=== PATIENT | female | born 1950 | race Caucasian/White ===

== ENCOUNTER → 2016-07-14 | Outpatient (CLI) | payer MEDICARE ==
[2016-07-14 11:42] LABS: Blood Urea Nitrogen 11 mg/dL (7-17); Non-African American GFR(MDRD) >60 (>60 ml/min/1.73 sqM)
--- NOTE | 2016-07-14 12:43 | CT ---
EXAMINATION TYPE: CT chest w con DATE OF EXAM: 07/14/2016 12:18 PM COMPARISON: PET/CT 03/11/[address] chest dated 11/24/2015 HISTORY: f/u lung mass CT DLP: 415.7 mGycm Automated exposure control for dose reduction was used. CONTRAST: CT scan of the chest is performed with IV Contrast, patient injected with 100 mL of Omnipaque 300. FINDINGS: LUNGS: There is an enlarging mass noted right upper lobe directly adjacent to the mediastinum current ly measures 4 x 2.1 cm versus 4.4 x 2.5 cm on prior PET/CT.New nodule is seen just caudal to the enla rging aforementioned mass which measures 2.0 x 1.3 cm. There is a new lung nodule at the right lung b ase which measures 2.5 cm in greatest dimension. Linear parenchymal scar superior segment right lower lobe. Left infrahilar nodule adjacent to the descending thoracic aorta is again noted and currently measures 1.8 x 1 cm versus 1.3 x 1.0 cm on prior PET/CT. No additional pulmonary masses or nodules id entified with certainty at this time. MEDIASTINUM: High right paratracheal lymph node is unchanged at 1.2 cm. Subcentimeter precarinal lymp h nodes noted as well as subcentimeter subcarinal lymph nodes. Right hilar adenopathy measuring up to 1.1 cm. Multiple subcentimeter left hilar lymph nodes detected. UPPER ABDOMEN: Hepatic steatosis. Cholecystectomy clips. Small hiatal hernia. OTHER: Remote right-sided rib fractures noted. IMPRESSION: 1. Dominant mass right upper lobe medially appears slightly smaller in size relative to prior PET/CT. There is however a new right basilar pulmonary nodule as well as a new nodule abutting the mediastin um right upper lobe. Left infrahilar nodule is slightly larger in size. 2. Adenopathy remains essentially unchanged.
== END | disposition home or self-care (01) ==
LOC: RADCTMAIN 11:00
PROVIDERS: ATTEND Internal Medicine Critical Care Medicine
DX: R91.8 Other nonspecific abnormal finding of lung field (principal); R59.9 Enlarged lymph nodes, unspecified
CPT/HCPCS: 82565; 84520; 71260; 36415; Q9967

== ENCOUNTER → 2016-08-05 | Outpatient (CLI) | payer MEDICARE ==
--- NOTE | 2016-08-06 11:11 | PE ---
EXAMINATION TYPE: PET CT fusion whole body DATE OF EXAM: 08/05/2016 11:38 AM CLINICAL HISTORY: 66-year-old female history of lung cancer, restaging. TECHNIQUE: Following the intravenous administration of 14.1 mCi of F-18 FDG, whole body images are performed from the skull base to the midthigh. Images are reviewed on the computer in the coronal, a xial, and sagittal planes. Reconstructed rotating images are created on independent workstation and reviewed on the computer. A localization and attenuation correction CT is performed in conjunction with the PET scan. Glucose level: 96 mg/dL COMPARISON: PET/CT 03/11/2016 FINDINGS: PET: Some mild uptake at the larynx likely a product of phonation. Variable mild to moderate activity redemonstrated at the shoulders likely on a degenerative basis. There are postsurgical changes within suture line along the medial right upper lobe. There is associa bowen medial right upper lobe mass measuring 6.6 cm AP by 2.5 cm wide versus 4.4 cm x 2.8 cm, previousl y. There is less cranial extension which seems to be due to the patient's interval biopsy. Maximal CANDELARIO V 13.5 vs 14.8, previously. Right basilar pulmonary nodule measures 1.9 cm and shows moderate FDG uptake, maximal SUV 4.7. A left basilar pulmonary nodule measures 1.2 cm and while slightly smaller in size from 03/11/2016, sh ows intense FDG uptake, maximum SUV 5.6 versus 7.2, previously. A new medial left lower lobe pulmonary nodule measures 1.2 cm and has borderline moderate FDG uptake, maximum SUV 3.9. A mildly enlarged 1.1 cm right paratracheal lymph node shows only mild FDG uptake and is stable from prior. Scattered mild bilateral hilar activity likely reactive/post inflammatory. Otherwise, no enla rged mediastinal lymphadenopathy seen. Focal soft tissue thickening along the intercostal musculature of the right anterolateral eighth inte rcostal space, axial image 113 shows intense FDG uptake, maximum SUV 5.8, and is suspicious. The previously seen FDG uptake relating to the right anterolateral rib fracture deformities has resol aj. A couple foci of intense tracer activity along the anterior peritoneum shows no CT correlate and like ly represents urine contamination. Otherwise, physiologic FDG uptake within the abdomen and pelvis. ATTENUATION CORRECTION CT: Visualized paranasal sinuses and mastoid air cells are clear. No cervical lymphadenopathy. Heart is upper limits of normal in size without pericardial effusion. Aorta is normal caliber with co nventional arch vessel branching anatomy. Some patchy bibasilar areas of atelectasis. There is mild centrilobular emphysema. No pleural effusion. Hepatic steatosis. Cholecystectomy clips. No mesenteric or retroperitoneal lymphadenopathy and no p elvic lymphadenopathy seen. No dilated small bowel, free fluid, or free air. Uterus surgically absent. No pelvic free fluid. Bones: Degenerative changes at the hips and lower lumbar spine. No osseous destructive process. IMPRESSION: 1. Status post surgical biopsy of the medial right upper lobe mass. This now measures up to 6.6 cm wi th continued very intense hypermetabolism compatible with neoplasm. 2. The left basilar pulmonary nodule remains suspicious despite slight decrease in size and metabolic activity now measuring 1.2 cm and maximal SUV of 5.6 versus 7.2, previously. 3. A 1.2 cm medial left lower lobe pulmonary nodule and a 1.9 cm right basilar pulmonary nodule are b oth new and show moderate hypermetabolism. Both are suspicious for metastatic disease. 4. Findings suspicious for a new soft tissue metastasis to the anterolateral right eighth intercostal space. 5. Mild emphysema and hepatic steatosis.
== END | disposition home or self-care (01) ==
LOC: RADPETMAIN 09:14
PROVIDERS: ATTEND Internal Medicine Hematology & Oncology
DX: R91.8 Other nonspecific abnormal finding of lung field (principal); J43.9 Emphysema, unspecified; K76.0 Fatty (change of) liver, not elsewhere classified
CPT/HCPCS: 78816; A9552

== ENCOUNTER → 2016-10-06 | Outpatient (CLI) | payer MEDICARE ==
[2016-10-06 14:53] LABS: Blood Urea Nitrogen 13 mg/dL (7-17); Non-African American GFR(MDRD) >60 (>60 ml/min/1.73 sqM)
--- NOTE | 2016-10-06 15:50 | CT ---
EXAMINATION TYPE: CT chest w con DATE OF EXAM: 10/06/2016 3:27 PM COMPARISON: 07/14/2016 and 03/01/2016. HISTORY: 66-year-old female with lung mass, follow-up. TECHNIQUE: Contiguous axial scanning of the chest after the administration of 100 mL of Omnipaque 300 . Coronal/sagittal reconstructions performed. CT DLP: 548.10mGycm. Automatic exposure control utilized for a dose reduction. FINDINGS: The heart is upper limits of normal in size without pericardial effusion. Aorta is normal caliber with conventional arch vessel branching anatomy. A 1 cm superior right paratracheal lymph node is slightly smaller versus 1.2 cm on 07/14/2016. An 8 to 9 mm left hilar lymph node is unchanged. Otherwise, no thoracic lymphadenopathy. There are postsurgical changes redemonstrated of wedge resection along the medial right upper lobe. Adjacent anterior right perihilar soft tissue thickening measures 1.0 x 2.6 cm versus 1.2 x 2.7 cm on 07/14/2016. This is noted to be new from 03/01/2016. Medial right upper lobe soft tissue thickening just above abutting the mediastinum measures 3.3 x 1.7 cm versus 3.8 x 2.2 cm previously. Redemonstrated right basilar pulmonary nodule measuring 2.0 cm. This is in comparison to 2.4 cm on 07/14/2016. A 1.6 cm left basal pulmonary nodule is relatively unchanged as compared to 07/14/2016. No consolidation or pleural effusion. Suggestion of strandy scarring or atelectasis at the lung bases . Small hiatal hernia. Diffuse fatty infiltration of the liver. The adrenal glands are clear. Gallblad rohith surgically absent. Bones: No osseous destructive process. IMPRESSION: 1. Postsurgical changes along the medial right upper lobe. Soft tissue thickening in this region is s lightly decreased measuring 3.3 x 1.7 cm versus 3.8 x 2.2 cm previously. 2. The focal subpleural soft tissue along the anterior right perihilar region is also minimally decre ased measuring 1.0 x 2.6 cm versus 1.2 x 2.7 cm. 3. Right basilar pulmonary nodule also decreased now at 2.0 cm versus 2.4 cm, previously. A 1.6 cm le ft basilar pulmonary nodule is relatively similar. 4. A superior right paratracheal lymph node now measures 1 cm versus 1.2 cm, previously. 5. Hepatic steatosis and small hiatal hernia.
== END | disposition home or self-care (01) ==
LOC: RADCTMAIN 14:05
PROVIDERS: ATTEND Internal Medicine Critical Care Medicine
DX: R91.1 Solitary pulmonary nodule (principal); K44.9 Diaphragmatic hernia without obstruction or gangrene; M79.89 Other specified soft tissue disorders; Z98.890 Other specified postprocedural states
CPT/HCPCS: 82565; 84520; 71260; 36415; Q9967

== ENCOUNTER → 2017-01-05 | Outpatient (CLI) | payer MEDICARE ==
[2017-01-05 11:23] LABS: Non-African American GFR(MDRD) >60 (>60 ml/min/1.73 sqM)
[2017-01-05 11:32] LABS: Blood Urea Nitrogen 15 mg/dL (7-17)
--- NOTE | 2017-01-05 12:19 | CT ---
EXAMINATION TYPE: CT chest w con DATE OF EXAM: 01/05/2017 COMPARISON: Previous study dated 10/06/2016 HISTORY: Lung Mass CT DLP: 609.7 mGycm Automated exposure control for dose reduction was used. CONTRAST: CT scan of the chest is performed with IV Contrast, patient injected with 100 mL of Omnipaque 300. FINDINGS: Masslike density in the right upper lobe adjacent to the medial suprahilar region has decre ased in size from 3.3 x 1.7 cm to 3.2 x 1.3 cm. Focal soft tissue density along anterior right perihilar region which previously measured 10.2 x 25.8 mm now measures 12.4 x 21 mm. Right basilar pulmonary nodule previously measuring 2 cm now measures 1.9 cm. Focal soft tissue densi ty in the left lower lung is slightly more prominent today measuring 2.5 cm. Previously it was measur ed at 1.6 cm. No new parenchymal lesions are seen. Superior right paratracheal lymph node previously measured 9.5 mm measures 8.5 mm today. There is no other significant axillary, internal mammary, mediastinal or hilar adenopathy. There is no pleural or pericardial fluid. The heart is not enlarged. Within the abdomen, there is fatty infiltration of the liver. The gallbladder is been removed. The re mainder of the visualized upper abdomen are unremarkable. There is a small hiatal hernia. There is mild hypertrophic spondylosis within the spine. No bony destructive lesion is seen. IMPRESSION: 1. FURTHER IMPROVEMENT IN THE MASSLIKE DENSITIES IN THE RIGHT LUNG. 2. RIGHT PARATRACHEAL LYMPH NODE HAS DECREASED IN SIZE FURTHER. 3. SLIGHT ENLARGEMENT OF THE LEFT BASILAR MASSLIKE DENSITY MAY REFLECT SLICE THICKNESS. 4. FATTY INFILTRATION OF THE LIVER.
== END | disposition home or self-care (01) ==
LOC: RADCTMAIN 10:32
PROVIDERS: ATTEND Internal Medicine Critical Care Medicine
DX: R91.8 Other nonspecific abnormal finding of lung field (principal)
CPT/HCPCS: 82565; 84520; 71260; 36415; Q9967

== ENCOUNTER → 2017-01-12 | Outpatient (CLI) | payer MEDICARE ==
[2017-01-12 12:33] LABS: Basophils % (A) 0 %; CH 28.6; Eosinophils % (A) 0 %; HCT 46.2 % (34.0-46.0); HDW 2.43; HGB 14.3 gm/dL (11.4-16.0); Luc # (Auto) 0.13; Luc % (Auto) 1; Lymphocytes # (A) 0.8 k/uL (1.0-4.8); Lymphocytes % (A) 5 %; MCH 27.8 pg (25.0-35.0); MCV 89.6 fL (80.0-100.0); Monocytes # (A) 0.4 k/uL (0-1.0); Monocytes % (A) 3 %; Neutrophils # (A) 14.4 k/uL (1.3-7.7); Neutrophils % (A) 91 %; RBC 5.16 m/uL (3.80-5.40); RDW 15.1 % (11.5-15.5); WBC 15.8 k/uL (3.8-10.6); WBC (Perox) 15.37
[2017-01-12 12:38] LABS: ALT 57 U/L (9-52); AST 26 U/L (14-36); Alkaline Phosphatase 66 U/L (38-126); Anion Gap 8 mmol/L; Blood Urea Nitrogen 14 mg/dL (7-17); Calcium 8.9 mg/dL (8.4-10.2); Carbon Dioxide 28 mmol/L (22-30); Chloride 104 mmol/L (98-107); Creatine Kinase 36 U/L (30-135); Glucose 108 mg/dL (74-99); Non-African American GFR(MDRD) >60 (>60 ml/min/1.73 sqM); Sodium 140 mmol/L (137-145); Total Bilirubin 0.6 mg/dL (0.2-1.3); Total Protein 5.9 g/dL (6.3-8.2)
== END | disposition home or self-care (01) ==
LOC: LABWHC1 11:54
PROVIDERS: ATTEND Internal Medicine Critical Care Medicine
DX: R91.8 Other nonspecific abnormal finding of lung field (principal)
CPT/HCPCS: 36415; 80053; 82550; 84439; 84443; 85025

== ENCOUNTER 2017-01-25 11:08 | Inpatient (IN) | payer MEDICARE ==
[2017-01-25] MEDS ORDERED: methylPREDNISolone SOD SUCCI 125 MG/2 ML VIAL IV STA (11:29)
[2017-01-25] MEDS ORDERED: IPRATROPIUM-ALBUTEROL 3 ML NEB INHALATION STA (11:29)
[2017-01-25] MEDS ORDERED: LEVOFLOXACIN 750MG-D5W PMX 750 MG in DEXTROSE/WATER 1 150ML.BAG IVPB STA (11:29)
[2017-01-25] MEDS ORDERED: ACETAMINOPHEN TAB 500 MG TAB PO STA (11:31)
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
[2017-01-25 12:13] LABS: Basophils % (A) 0 %; CH 28.1; CHCM 32.6; Eosinophils # (A) 0.2 k/uL (0-0.7); Eosinophils % (A) 1 %; HCT 41.6 % (34.0-46.0); HGB 13.9 gm/dL (11.4-16.0); Luc # (Auto) 0.25; Luc % (Auto) 2; Lymphocytes # (A) 0.9 k/uL (1.0-4.8); Lymphocytes % (A) 7 %; MCH 28.8 pg (25.0-35.0); MCHC 33.4 g/dL (31.0-37.0); MCV 86.3 fL (80.0-100.0); Mean Platelet Volume 6.7; Monocytes # (A) 0.9 k/uL (0-1.0); Monocytes % (A) 7 %; Neutrophils # (A) 10.8 k/uL (1.3-7.7); Neutrophils % (A) 83 %; RBC 4.83 m/uL (3.80-5.40); RDW 14.4 % (11.5-15.5); WBC (Perox) 13.32
[2017-01-25] MEDS ORDERED: ACETAMINOPHEN SUPPOSITORY 650 MG SUPP RECTAL STA (12:21)
[2017-01-25 12:22] LABS: ALT 52 U/L (9-52); AST 32 U/L (14-36); Alkaline Phosphatase 74 U/L (38-126); Anion Gap 9 mmol/L; Blood Urea Nitrogen 11 mg/dL (7-17); Calcium 9.1 mg/dL (8.4-10.2); Carbon Dioxide 26 mmol/L (22-30); Chloride 104 mmol/L (98-107); Glucose 107 mg/dL (74-99); Non-African American GFR(MDRD) >60 (>60 ml/min/1.73 sqM); Potassium 3.7 mmol/L (3.5-5.1); Sodium 139 mmol/L (137-145); Total Bilirubin 0.8 mg/dL (0.2-1.3); Total Protein 6.2 g/dL (6.3-8.2)
--- NOTE | 2017-01-25 12:24 | XR ---
EXAMINATION TYPE: XR chest 2V DATE OF EXAM: 01/25/2017 COMPARISON: 11/15/2016 HISTORY: 66-year-old female with difficulty breathing, sore throat, cough TECHNIQUE: PA and lateral views FINDINGS: Low lung volumes with crowded vascular markings. Heart remains upper limits of normal in size. Pulmon charles vasculature within normal limits. There is some patchy opacity at the left base. Mild interstitia l prominence is unchanged. IMPRESSION: Hypoventilatory changes. There is some patchy atelectasis or developing infiltrate at the left base.
[2017-01-25 12:35] LABS: Creatine Kinase 186 U/L (30-135)
[2017-01-25 12:38] LABS: Prothrombin Time 10.3 sec (9.0-12.0)
[2017-01-25 12:45] LABS: Partial Thromboplastin Time 21.1 sec (22.0-30.0)
[2017-01-25 12:47] LABS: Creatine Kinase MB 1.1 ng/mL (0.0-2.4); Troponin I <0.012 ng/mL (0.000-0.034)
[2017-01-25] MEDS ORDERED: PNEUMONIA PROTOCOL UTILIZED 1 EACH MISC PO PRN (13:30)
[2017-01-25] MEDS ORDERED: ACETAMINOPHEN SUPPOSITORY 650 MG SUPP RECTAL PRN (13:35)
[2017-01-25 14:37] VITALS: BMI 38.5
[2017-01-25] MEDS: PANTOPRAZOLE 40 MG/10 ML VIAL IVP SCH (15:37)
[2017-01-25] MEDS: ENOXAPARIN 40 MG/0.4 ML SYRINGE SQ SCH (15:37)
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
[2017-01-25] MEDS: methylPREDNISolone SOD SUCCI 125 MG/2 ML VIAL IV SCH ×2 (17:47→22:33)
[2017-01-25] MEDS: HYDROcodone/APAP 10-325MG 1 EACH TAB PO PRN (17:56)
[2017-01-25] MEDS: IPRATROPIUM-ALBUTEROL 3 ML NEB INHALATION PRN (19:27)
[2017-01-25] MEDS: PARoxetine 10 MG TAB PO SCH (22:34)
[2017-01-25] MEDS ORDERED: ENALAPRILAT 1.25 MG/ML 1 ML VIAL IVP PRN (23:36)
[2017-01-26] MEDS: IPRATROPIUM-ALBUTEROL 3 ML NEB INHALATION PRN ×5 (00:31→20:24)
[2017-01-26 06:59] LABS: Basophils % (A) 0 %; CH 29.1; CHCM 32.6; Eosinophils % (A) 0 %; HCT 42.4 % (34.0-46.0); HDW 2.47; HGB 13.4 gm/dL (11.4-16.0); Luc # (Auto) 0.05; Luc % (Auto) 0; Lymphocytes # (A) 0.9 k/uL (1.0-4.8); Lymphocytes % (A) 9 %; MCH 28.2 pg (25.0-35.0); MCHC 31.5 g/dL (31.0-37.0); MCV 89.6 fL (80.0-100.0); Mean Platelet Volume 7.4; Monocytes # (A) 0.2 k/uL (0-1.0); Monocytes % (A) 2 %; Neutrophils # (A) 9.4 k/uL (1.3-7.7); Neutrophils % (A) 89 %; RBC 4.73 m/uL (3.80-5.40); RDW 15.2 % (11.5-15.5); WBC 10.6 k/uL (3.8-10.6); WBC (Perox) 10.97
[2017-01-26 07:28] LABS: ALT 45 U/L (9-52); AST 27 U/L (14-36); Alkaline Phosphatase 67 U/L (38-126); Anion Gap 10 mmol/L; Blood Urea Nitrogen 7 mg/dL (7-17); Calcium 9.5 mg/dL (8.4-10.2); Carbon Dioxide 25 mmol/L (22-30); Chloride 107 mmol/L (98-107); Glucose 139 mg/dL (74-99); Non-African American GFR(MDRD) >60 (>60 ml/min/1.73 sqM); Potassium 3.8 mmol/L (3.5-5.1); Sodium 142 mmol/L (137-145); Total Bilirubin 0.5 mg/dL (0.2-1.3); Total Protein 5.7 g/dL (6.3-8.2)
[2017-01-26] MEDS: ENOXAPARIN 40 MG/0.4 ML SYRINGE SQ SCH (08:20)
[2017-01-26] MEDS: methylPREDNISolone SOD SUCCI 125 MG/2 ML VIAL IV SCH ×4 (08:21→21:51)
[2017-01-26] MEDS: PANTOPRAZOLE 40 MG/10 ML VIAL IVP SCH (08:21)
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
[2017-01-26] MEDS: LEVOFLOXACIN 750MG-D5W PMX 750 MG in DEXTROSE/WATER 1 150ML.BAG IVPB SCH (13:20)
--- NOTE | 2017-01-26 14:27 | P.PN ---
Subjective This is a pleasant 66-year-old lady patient of Dr. Winston Wagoner and Dr. Hampton. She has underlying history of chronic bronchial asthma hemoptysis asthma and tracheobronchial malacia GERD IgGg4 autoimmune and masslike consolidation for which she underwent multiple PET CTs serially performed since February 2015, along with post-coloscopy by Dr. Hampton, right upper lobe preferred to [facility] followed with Dr. Stahl in February 2016. Needle biopsy of the right paratracheal lymph node performed last February 2016 showed scattered bronchial lining cells with mild atypia favor reactive no cytological malignant cells identified and decided to watch the nodules without any surgical intervention. She was ill now presenting to the hospital secondary to increasing shortness of breath and cough and fever, she recently had been decreased her prednisone from 40 mg chronically for the past 3 mos. tapered to 20 mg x 3 mos mg a day to 10 mg daily, as prescribed by Dr. Hampton. she also follows with dr gamble oncology. no malignancy identified she was seen in the emergency room secondary to the above symptoms, chest x- ray revealed hypoventilatory changes with patchy atelectasis or developing infiltrate at left base, patient has bronchospasms recurrent for which she has to be admitted with pulmonary, infectious disease consult. 01/26: Patient continues to have wheezing for which no change in her medications were made. She has been seen by Dr. Gibbons. White count has normalized. Blood culture showing no growth after [address] in [address] with Dr. Zabala. Objective - Vital Signs Vital signs: Vital Signs Temp 98.3 F 01/26/17 07:00 Pulse 84 01/26/17 12:04 Resp 14 01/26/17 11:47 BP 126/61 01/26/17 07:00 Pulse Ox 95 01/26/17 07:00 Intake & Output 01/25/17 01/26/17 01/26/17 18:59 06:59 18:59 Intake Total 600 Balance 600 Weight 86.5 kg Intake: Oral 600 Other: Voiding Method Toilet Toilet Toilet # Voids 2 - Exam General appearance: cooperative, no acute distress - EENT Eyes: anicteric sclerae, EOMI, dentition normal, normal appearance ENT: hard of hearing, NA/AT, normal oropharynx - Neck Neck: normal ROM - Respiratory Respiratory: bilateral: diminished, wheezing, negative: CTA, dullness, rales, rhonchi - Cardiovascular Rhythm: regular Heart sounds: normal: S1, S2 Abnormal Heart Sounds: systolic murmur - Gastrointestinal General gastrointestinal: normal bowel sounds, soft - Integumentary Integumentary: decreased turgor, normal - Neurologic Neurologic: CNII-XII intact - Musculoskeletal Musculoskeletal: gait normal, strength equal bilaterally - Psychiatric Psychiatric: A&O x's 3, appropriate affect, intact judgment & insight - Labs CBC & Chem 7: 01/26/17 06:25 01/26/17 06:25 Labs: Abnormal Lab Results - Last 24 Hours (Table) 01/26/17 01/26/17 Range/Units 06:25 06:25 Neutrophils # 9.4 H (1.3-7.7) k/uL Lymphocytes # 0.9 L (1.0-4.8) k/uL Glucose 139 H (74-99) mg/dL Total Protein 5.7 L (6.3-8.2) g/dL Albumin 3.4 L (3.5-5.0) g/dL Microbiology - Last 24 Hours (Table) 01/25/17 11:58 Blood Culture - Preliminary Blood No Growth after 24 hours Assessment and Plan Plan: 1. Left lower lobe pneumonia with underlying history off IgGG4 disease currently on chronic prednisone and chronic rhonchi asthma patient currently is on oral Levaquin, IV Solu-Medrol, nebulized albuterol Atrovent, 2. IGG4 autoimmune disease, a plasma cell related disease follows with dr hampton on oral prednisone, also seeing dr gamble. shes scheduled to have repeat ct in 04/2017 for surveilance of lymph nodes in the chest. she has chronic hemopytisis. they are contemplating steroid sparing agents including rituximab or azathioprine or methotrexate or cyclophosphamide, oncology Dr. Gamble might need to be consulted during this admission, serum protein electrophoresis will be obtained IgG4 for an IgE levels will be obtained to evaluate for relapse 3. 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 Moderate persistent asthmatic bronchitis, stable. Continue nebulizer treatments. 3. Gastroesophageal reflux disease and gastric intestinal prophylaxis. Continue Protonix. 4. Generalized anxiety disorder. Continue Paxil 10 mg at bedtime. 5. Neurodermatitis of the right arm, stable. GI prophylaxis and DVT prophylaxis Discharge plan: Return home Impression and plan of care have been directed as dictated by the signing physician. Leta Stanley nurse practitioner acting as scribe for signing physician.
[2017-01-26] MEDS: cefTRIAXone 2,000 MG in SODIUM CHLORIDE 0.9% 100 ML IVPB SCH (16:06)
--- NOTE | 2017-01-26 18:40 | CONS ---
DATE OF SERVICE: 01/26/2017 REASON FOR CONSULTATION: Pneumonia. HISTORY OF PRESENT ILLNESS: This patient is a 66-year-old female with a past medical history significant for bronchial asthma, tracheobronchial malacia, and did have pulmonary nodules, for which the patient did have biopsies that were suggestive of atypia; favor reactive; no cytologically malignant cells; hence no chemo. Patient says she came to the hospital with the chief complaint of increasing shortness of breath. She did have a cough and brought up some yellowish sputum. No hemoptysis. She did have some left lower lobe chest pain, 2 to 3 out of 10 and no radiation. The patient did have some hoarseness of voice but no other URI symptoms. She also had some chills but no high-grade fever. On arrival in the ER, the patient did have a fever of 100.5. She had elevated white count of 13,000. She had a chest x-ray which was suggestive of hypoventilatory changes, some patchy atelectasis or developing infiltrate in the left base. The patient was started on Levaquin. ID was consulted for further recommendations regarding antibiotic therapy. REVIEW OF SYSTEMS: CONSTITUTIONAL: Positive for weakness along with some chills. EYES: No complaint. ENT: No complaint. RESPIRATORY: As per HPI. CARDIOVASCULAR: No complaint. GENITOURINARY: No complaint. GASTROINTESTINAL: No complaint. MUSCULOSKELETAL: No complaint. INTEGUMENTARY: No complaint. PSYCHOLOGIC: No complaint. ENDOCRINE: No complaint. NEUROLOGIC: No complaint. Past medical history is significant for: 1. Asthma. 2. Gastroesophageal reflux disease. 3. Osteoarthritis. 4. Pulmonary nodules, status post biopsy. PAST SURGICAL HISTORY: 1. Adenoidectomy. 2. Appendectomy. 3. Cholecystectomy. 4. Hysterectomy. 5. Tonsillectomy. 6. Colonoscopy. 7. Bronchoscopy. 8. Right thoracotomy. SOCIAL HISTORY: No history of smoking, drinking or drug use. FAMILY HISTORY: Mother with history of kidney cancer. Father with history of renal disease and hypertension. ALLERGIES: 1. TRAMADOL. 2. KETOROLAC. Medications current include: 1. [place]. 2. DuoNeb. 3. Enalapril. 4. Lovenox. 5. Levofloxacin. 6. Solu-Medrol. 7. Protonix. 8. Paxil. On examination, blood pressure is 126/61 with a pulse of 84, temperature 98.2, T -max of 100.5. She is 95% on room air. General description is an elderly female up in the chair in no distress. No tachypnea or accessory muscle of respiration use. HEENT examination shows no pallor or scleral icterus. Oral mucous membrane is dry. NECK: Trachea is central. No thyromegaly. LUNGS: Unlabored breathing. Coarse breath sounds at the bases bilaterally. HEART: S1, S2. Regular rate and rhythm. ABDOMEN: Soft. No tenderness. EXTREMITIES: Two plus edema of the feet. SKIN EXAMINATION: No rash or mass palpable. Neurologically patient is awake, alert, oriented x3. Mood and affect normal. LABS: Hemoglobin 13.4, white count 10.6 with a BUN of 7, creatinine 0.68. Electrolytes have been normal. Blood cultures were obtained and are currently pending. DIAGNOSTIC IMPRESSION AND PLAN: Patient admitted to hospital with difficulty breathing; did have a cough productive of sputum with left lower lobe infiltrate ; likely concern for underlying community-acquired pneumonia to be at the top of the list. PLAN: 1. Obtain sputum for Gram stain and culture and sensitivity. 2. Will continue the patient on Levaquin; however, will add Rocephin. 3. We will follow up on the clinical condition and cultures to further adjust medication if needed. Thank you for this consultation. Will follow this patient along with you. ANNELIESE
[2017-01-26] MEDS: PARoxetine 10 MG TAB PO SCH (21:51)
[2017-01-27] MEDS: IPRATROPIUM-ALBUTEROL 3 ML NEB INHALATION PRN ×5 (00:18→23:09)
[2017-01-27] MEDS: HYDROcodone/APAP 10-325MG 1 EACH TAB PO PRN ×2 (04:10→23:58)
[2017-01-27] MEDS: methylPREDNISolone SOD SUCCI 125 MG/2 ML VIAL IV SCH ×4 (07:41→22:12)
[2017-01-27] MEDS: PANTOPRAZOLE 40 MG TABLET PO SCH ×2 (07:42→09:03)
[2017-01-27] MEDS: ENOXAPARIN 40 MG/0.4 ML SYRINGE SQ SCH (07:42)
[2017-01-27 07:49] LABS: Anion Gap 9 mmol/L; Calcium 9.4 mg/dL (8.4-10.2); Carbon Dioxide 24 mmol/L (22-30); Chloride 107 mmol/L (98-107); Glucose 118 mg/dL (74-99); Non-African American GFR(MDRD) >60 (>60 ml/min/1.73 sqM); Sodium 140 mmol/L (137-145); Total Bilirubin 0.4 mg/dL (0.2-1.3); Total Protein 5.4 g/dL (6.3-8.2)
[2017-01-27 08:01] LABS: Basophils % (A) 0 %; CH 28.9; CHCM 32.3; Eosinophils % (A) 0 %; HDW 2.49; HGB 12.7 gm/dL (11.4-16.0); Luc # (Auto) 0.21; Luc % (Auto) 1; Lymphocytes % (A) 4 %; MCH 28.5 pg (25.0-35.0); MCHC 31.7 g/dL (31.0-37.0); MCV 89.8 fL (80.0-100.0); Mean Platelet Volume 7.4; Monocytes # (A) 0.9 k/uL (0-1.0); Monocytes % (A) 4 %; Neutrophils # (A) 22.5 k/uL (1.3-7.7); Neutrophils % (A) 91 %; RBC 4.45 m/uL (3.80-5.40); RDW 15.1 % (11.5-15.5); WBC 24.6 k/uL (3.8-10.6)
[2017-01-27 08:12] LABS: ALT 35 U/L (9-52); AST 32 U/L (14-36); Alkaline Phosphatase 49 U/L (38-126); Blood Urea Nitrogen 13 mg/dL (7-17)
[2017-01-27] MEDS: LEVOFLOXACIN 750MG-D5W PMX 750 MG in DEXTROSE/WATER 1 150ML.BAG IVPB SCH (12:24)
--- NOTE | 2017-01-27 12:51 | P.PN ---
Subjective Principal diagnosis: Acute exacerbation of severe persistent asthma This is a very pleasant 66-year-old female patient who follows with Dr. Winston alvarado as her primary care physician. She has a history of anxiety, osteoarthritis, gastroesophageal reflux disease, chronic bronchial asthma. She also follows with Dr. Salgado in our office for an IgG4 related lung disease. The patient was initially seen by our group back in 2014 with complaints of increasing shortness of breath and a right pleural effusion. That was felt to be a postinfectious atelectasis/effusion. A computed tomography scan showed a right upper lobe nodule measuring 1.1 cm in size. Follow-up PET scans revealed only mild uptake. Serial CAT scans of the chest revealed enlarging mass and she was subsequently sent to Dr. Aniceto Stahl at [facility] and she did undergo a right upper lobe lobectomy and the pathologic diagnosis was consistent with IgG4 related lung disease. Since that time she has had repeated CT scans and PET scans. She had been on 40 mg of prednisone which was started in July 2016 and subsequently tapered down to 20 mg. She was last seen by Dr. Salgado in our office on 01/12/2017. At that time he found her most recent CAT scan 01/05/2017 to reveal further improvements in the masslike densities in the right lung. The right paratracheal lymph node was decreased in size as well. There was slight enlargement of the left basilar masslike density. There is fatty infiltration of the liver. Based on these findings he decreased her prednisone to 10 mg daily. The plan was to treat her with steroids for a total of 1 year and possibly stop the prednisone altogether by May 2017. The patient has also been followed by Dr. Finley as Susie has been in the consideration of treatment. The patient presented here yesterday to the emergency room with complaints of increasing shortness of breath cough and congestion. She's had increased coughing throughout the night as well. Her cough is productive with some blood- tinged clear sputum. No significant hemoptysis as she has had in the past. She has had some sore throat and difficulty swallowing. Her chest x-ray revealed revealed some patchy atelectasis in the left lung base. No leukocytosis. She did have a T-max of 100.5 on admission. Currently afebrile. She is maintaining good O2 saturations in the mid 90s on room air. No significant tachycardia. No tachypnea. Hemodynamically stable. She is breathing easier today as compared to yesterday. She's been initiated on bronchodilators, IV Solu-Medrol and Levaquin. Reevaluated today on 01/27/2017, patient continues to have shortness of breath cough and wheezing. Slight improvement but not much according to the patient. Patient is already maximized on multiple bronchodilators, and she is on relatively high dose of steroids. Her WBC count seems to be high at 24.6, rest of the labs were relatively unremarkable. Chest x-ray showed some patchy atelectasis or possibly developing infiltrate in the left lower lobe. Patient is empirically on antibiotics. Objective - Vital Signs Vital signs: Vital Signs Temp 97.7 F 01/27/17 07:00 Pulse 104 H 01/27/17 08:07 Resp 16 01/27/17 07:53 BP 132/63 01/27/17 07:00 Pulse Ox 97 01/27/17 12:19 Intake & Output 01/26/17 01/27/17 01/27/17 18:59 06:59 18:59 Intake Total 1230 1040 240 Balance 1230 1040 240 Intake: Intake, IV Titration 150 Amount Levofloxacin 750Mg-D5w 150 Pmx 750 mg In Dextrose/ Water 1 150ml.bag @ 100 mls/hr IVPB Q24H [facility] Rx#: [id number] Oral 1080 1040 240 Other: Voiding Method Toilet Toilet Toilet # Voids 3 3 4 - Exam GENERAL EXAM: Alert, active, comfortable in no apparent distress. HEAD: Normocephalic. EYES: Normal reaction of pupils, equal size. NOSE: Clear with pink turbinates. THROAT: No erythema or exudates. NECK: No masses, no JVD. CHEST: No chest wall deformity. LUNGS: Equal air entry with few scattered rhonchi, diminished. CVS: S1 and S2 normal with no audible murmurs, regular rhythm. ABDOMEN: No hepatosplenomegaly, normal bowel sounds, no guarding or rigidity. SPINE: No scoliosis or deformity SKIN: No rashes CENTRAL NERVOUS SYSTEM: No focal deficits, tone is normal in all 4 extremities. Extremities: There is trace peripheral edema. No clubbing, no cyanosis. Peripheral pulses are intact. - Labs CBC & Chem 7: 01/27/17 06:51 01/27/17 06:51 Labs: Abnormal Lab Results - Last 24 Hours (Table) 01/25/17 01/25/17 01/27/17 Range/Units 11:58 11:58 06:51 WBC 24.6 H (3.8-10.6) k/uL Neutrophils # 22.5 H (1.3-7.7) k/uL Glucose (74-99) mg/dL Total Protein (6.3-8.2) g/dL Albumin (3.5-5.0) g/dL Albumin (PEP) 3.36 L (3.80-4.90) g/dL IgG 510.0 L (700.0-1600.0) mg/dL 01/27/17 Range/Units 06:51 WBC (3.8-10.6) k/uL Neutrophils # (1.3-7.7) k/uL Glucose 118 H (74-99) mg/dL Total Protein 5.4 L (6.3-8.2) g/dL Albumin 3.1 L (3.5-5.0) g/dL Albumin (PEP) (3.80-4.90) g/dL IgG (700.0-1600.0) mg/dL Microbiology - Last 24 Hours (Table) 01/26/17 08:00 Gram Stain - Preliminary Sputum Sputum Culture - Preliminary 01/25/17 11:58 Blood Culture - Preliminary Blood No Growth after 24 hours Assessment and Plan Plan: #1 Acute exacerbation of moderate persistent chronic bronchial asthma and #2 IgG4 related lung disease, currently on 10 mg of prednisone daily in the outpatient setting. #3 Lung mass of the right lung and right paratracheal lymph node have decreased in size on 01/05/2017 CAT scan. #4 Fatty infiltration of the liver. #5 History of hemoptysis. #6 History of multiple right-sided rib fractures. #7 General anxiety disorder. Recommendation: Continue present treatment plan continue bronchodilators, steroids, antibiotics, not quite ready for discharge planning at this point, possible discharge plans early Sunday. Time with Patient: Less than 30
--- NOTE | 2017-01-27 13:16 | P.PN ---
Subjective Principal diagnosis: Acute respiratory failure, left lower lobe pneumonia, IgG4 autoimmune deficiency , chronic hemoptysis, moderate persistent asthmatic bronchitis, This is a pleasant 66-year-old lady patient of Dr. Winston Wagoner and Dr. Hampton. She has underlying history of chronic bronchial asthma hemoptysis asthma and tracheobronchial malacia GERD IgGg4 autoimmune and masslike consolidation for which she underwent multiple PET CTs serially performed since February 2015, along with post-coloscopy by Dr. Hampton, right upper lobe preferred to [facility] followed with Dr. Stahl in February 2016. Needle biopsy of the right paratracheal lymph node performed last February 2016 showed scattered bronchial lining cells with mild atypia favor reactive no cytological malignant cells identified and decided to watch the nodules without any surgical intervention. She was ill now presenting to the hospital secondary to increasing shortness of breath and cough and fever, she recently had been decreased her prednisone from 40 mg chronically for the past 3 mos. tapered to 20 mg x 3 mos mg a day to 10 mg daily, as prescribed by Dr. Hampton. she also follows with dr gamble oncology. no malignancy identified she was seen in the emergency room secondary to the above symptoms, chest x- ray revealed hypoventilatory changes with patchy atelectasis or developing infiltrate at left base, patient has bronchospasms recurrent for which she has to be admitted with pulmonary, infectious disease consult. 01/26: Patient continues to have wheezing for which no change in her medications were made. She has been seen by Dr. Gibbons. White count has normalized. Blood culture showing no growth after [address] with [address]. Zabala. 01/27/2017: Patient is feeling slightly better off oxygen at this point continue to have cough wheezes. Patient was seen infectious disease still waiting for the final culture. Also seen Dr. Gibbons her was continue on current nebulizer treatment along with steroid. Objective - Vital Signs Vital signs: Vital Signs Temp 97.7 F 01/27/17 07:00 Pulse 104 H 01/27/17 08:07 Resp 16 01/27/17 07:53 BP 132/63 01/27/17 07:00 Pulse Ox 97 01/27/17 12:19 Intake & Output 01/26/17 01/27/17 01/27/17 18:59 06:59 18:59 Intake Total 1230 1040 240 Balance 1230 1040 240 Intake: Intake, IV Titration 150 Amount Levofloxacin 750Mg-D5w 150 Pmx 750 mg In Dextrose/ Water 1 150ml.bag @ 100 mls/hr IVPB Q24H [facility] Rx#: [id number] Oral 1080 1040 240 Other: Voiding Method Toilet Toilet Toilet # Voids 3 3 4 - Constitutional General appearance: Present: cooperative, disheveled, no acute distress. Absent : average body habitus, mild distress, morbidly obese, obese, severe distress, thin - EENT Eyes: Present: normal appearance. Absent: abnormal pupil, anicteric sclerae, disc margins sharp, edentulous, EOMI, PERRLA, fundus normal, photophobia, dentition normal, poor dentition, ptosis, scleral icterus ENT: Present: hard of hearing, pharyngeal erythema. Absent: hearing grossly normal, NA/AT, normal oropharynx, other, thrush, tonsillar exudates, tonsillar swelling Ears: bilateral: normal - Neck Neck: Present: normal ROM. Absent: lymphadenopathy, other, rigidity, stridor, thyromegaly Carotids: bilateral: upstroke normal Thyroid: bilateral: normal size - Respiratory Respiratory: bilateral: diminished, dullness, rales, rhonchi, wheezing, prolonged expiration - Cardiovascular Rhythm: regular Heart sounds: normal: S1, S2 Abnormal Heart Sounds: Present: systolic murmur, S3 Gallop - Gastrointestinal General gastrointestinal: Present: distended, normal bowel sounds, organomegaly , soft, splenomegaly. Absent: absent bowel sounds, decreased bowel sounds, hepatomegaly, hyperactive bowel sounds, rigid, scaphoid, tenderness, umbilical hernia, ventral hernia - Integumentary Integumentary: Present: normal, pale. Absent: calor, cellulitis, cyanotic, decreased turgor, flushed, jaundiced, normal turgor, rash, ulcer - Neurologic Neurologic: Present: CNII-XII intact - Musculoskeletal Musculoskeletal: Present: gait normal, generalized weakness, strength equal bilaterally - Psychiatric Psychiatric: Present: A&O x's 3, appropriate affect - Labs CBC & Chem 7: 01/27/17 06:51 01/27/17 06:51 Labs: Abnormal Lab Results - Last 24 Hours (Table) 01/25/17 01/25/17 01/27/17 Range/Units 11:58 11:58 06:51 WBC 24.6 H (3.8-10.6) k/uL Neutrophils # 22.5 H (1.3-7.7) k/uL Glucose (74-99) mg/dL Total Protein (6.3-8.2) g/dL Albumin (3.5-5.0) g/dL Albumin (PEP) 3.36 L (3.80-4.90) g/dL IgG 510.0 L (700.0-1600.0) mg/dL 01/27/17 Range/Units 06:51 WBC (3.8-10.6) k/uL Neutrophils # (1.3-7.7) k/uL Glucose 118 H (74-99) mg/dL Total Protein 5.4 L (6.3-8.2) g/dL Albumin 3.1 L (3.5-5.0) g/dL Albumin (PEP) (3.80-4.90) g/dL IgG (700.0-1600.0) mg/dL Microbiology - Last 24 Hours (Table) 01/26/17 08:00 Gram Stain - Preliminary Sputum Sputum Culture - Preliminary 01/25/17 11:58 Blood Culture - Preliminary Blood No Growth after 24 hours Assessment and Plan Plan: 1 acute respiratory failure: Combination of left lower lobe pneumonia along with and align IgGG4 deficiency: Continue to treat pneumonia and continue to treat COPD exacerbation at this point continue O2. 2. Left lower lobe pneumonia with underlying history off IgGG4 disease currently on chronic prednisone and chronic rhonchi asthma patient currently is on oral Levaquin, IV Solu-Medrol, nebulized albuterol Atrovent, 3. IGG4 autoimmune disease, a plasma cell related disease follows with dr hampton on oral prednisone, also seeing dr gamble. shes scheduled to have repeat ct in 04/2017 for surveilance of lymph nodes in the chest. she has chronic hemopytisis. they are contemplating steroid sparing agents including rituximab or azathioprine or methotrexate or cyclophosphamide, oncology Dr. Gamble might need to be consulted during this admission, serum protein electrophoresis will be obtained IgG4 for an IgE levels will be obtained to evaluate for relapse 4. 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 Moderate persistent asthmatic bronchitis, stable. Continue nebulizer treatments. 6. Gastroesophageal reflux disease and gastric intestinal prophylaxis. Continue Protonix. 7. Generalized anxiety disorder. Continue Paxil 10 mg at bedtime. 8. Neurodermatitis of the right arm, stable. Discharge planning: Hopefully home in the next 48 hours.
[2017-01-27] MEDS: cefTRIAXone 2,000 MG in SODIUM CHLORIDE 0.9% 100 ML IVPB SCH (16:35)
[2017-01-27] MEDS: PARoxetine 10 MG TAB PO SCH (19:55)
[2017-01-28 07:38] LABS: Basophils % (A) 0 %; CH 28.6; CHCM 31.5; Eosinophils % (A) 0 %; HCT 42.7 % (34.0-46.0); HDW 2.47; HGB 13.6 gm/dL (11.4-16.0); Hypochromasia Slight; Luc # (Auto) 0.11; Luc % (Auto) 0; Lymphocytes # (A) 0.9 k/uL (1.0-4.8); Lymphocytes % (A) 4 %; MCHC 31.7 g/dL (31.0-37.0); MCV 91.4 fL (80.0-100.0); Mean Platelet Volume 7.5; Monocytes # (A) 0.5 k/uL (0-1.0); Monocytes % (A) 2 %; Neutrophils # (A) 22.5 k/uL (1.3-7.7); Neutrophils % (A) 94 %; RBC 4.67 m/uL (3.80-5.40); RDW 14.8 % (11.5-15.5); WBC 24.1 k/uL (3.8-10.6); WBC (Perox) 24.07
--- NOTE | 2017-01-28 07:55 | PN ---
DATE OF SERVICE: 01/27/17 REASON FOR FOLLOW UP: Pneumonia. INTERVAL HISTORY: The patient is afebrile. Her breathing has slightly improved. She did have cough and bringing up her sputum but no chest pain. No abdominal pain. No nausea, vomiting or any diarrhea. On examination, blood pressure 136/53 with a pulse of 93. Temperature 98.1. She is 96% on room air. General description is an elderly female up in the bed in no distress. Respiratory system unlabored breathing. Coarse breath sounds bilaterally. Heart S1, S2 regular rate and rhythm. Abdomen soft. No tenderness. LABS: Hemoglobin 12.7, white count 24.6. BUN 13, creatinine 0.73. Blood and sputum cultures currently pending. DIAGNOSTIC IMPRESSION AND PLAN: The patient admitted to the hospital with increased shortness of breath and cough with possibility of pneumonia likely community acquired. The patient did have jump in white count, more likely steroid effect as the patient did not show any clinical worsening. She will continue Rocephin and Levaquin and we will wait for the culture to finalize. ANNELIESE
--- NOTE | 2017-01-28 07:55 | XR ---
EXAMINATION TYPE: XR chest 2V DATE OF EXAM: 01/28/2017 COMPARISON: 01/25/2017 INDICATION: Pneumonia cough shortness of breath TECHNIQUE: Frontal and lateral views of the chest are obtained. FINDINGS: The heart size is normal. The pulmonary vasculature is normal. Left basilar infiltrate is again evident. This is best visualized frontal projection. Remaining porti ons of the lungs are clear. IMPRESSION: 1. Left basilar infiltrate. Correlate for atelectasis and pneumonia.
[2017-01-28 08:02] LABS: ALT 44 U/L (9-52); AST 29 U/L (14-36); Alkaline Phosphatase 60 U/L (38-126); Anion Gap 11 mmol/L; Blood Urea Nitrogen 13 mg/dL (7-17); Calcium 9.7 mg/dL (8.4-10.2); Carbon Dioxide 22 mmol/L (22-30); Chloride 107 mmol/L (98-107); Glucose 114 mg/dL (74-99); Non-African American GFR(MDRD) >60 (>60 ml/min/1.73 sqM); Sodium 140 mmol/L (137-145); Total Bilirubin 0.2 mg/dL (0.2-1.3); Total Protein 5.5 g/dL (6.3-8.2)
[2017-01-28] MEDS: IPRATROPIUM-ALBUTEROL 3 ML NEB INHALATION PRN ×4 (08:50→21:13)
[2017-01-28] MEDS: methylPREDNISolone SOD SUCCI 125 MG/2 ML VIAL IV SCH (08:55)
[2017-01-28] MEDS: PANTOPRAZOLE 40 MG TABLET PO SCH (08:55)
[2017-01-28] MEDS: ENOXAPARIN 40 MG/0.4 ML SYRINGE SQ SCH (08:56)
--- NOTE | 2017-01-28 11:27 | P.PN ---
Subjective Principal diagnosis: Acute exacerbation of severe persistent asthma This is a very pleasant 66-year-old female patient who follows with Dr. Winston alvarado as her primary care physician. She has a history of anxiety, osteoarthritis, gastroesophageal reflux disease, chronic bronchial asthma. She also follows with Dr. Salgado in our office for an IgG4 related lung disease. The patient was initially seen by our group back in 2014 with complaints of increasing shortness of breath and a right pleural effusion. That was felt to be a postinfectious atelectasis/effusion. A computed tomography scan showed a right upper lobe nodule measuring 1.1 cm in size. Follow-up PET scans revealed only mild uptake. Serial CAT scans of the chest revealed enlarging mass and she was subsequently sent to Dr. Aniceto Stahl at [facility] and she did undergo a right upper lobe lobectomy and the pathologic diagnosis was consistent with IgG4 related lung disease. Since that time she has had repeated CT scans and PET scans. She had been on 40 mg of prednisone which was started in July 2016 and subsequently tapered down to 20 mg. She was last seen by Dr. Salgado in our office on 01/12/2017. At that time he found her most recent CAT scan 01/05/2017 to reveal further improvements in the masslike densities in the right lung. The right paratracheal lymph node was decreased in size as well. There was slight enlargement of the left basilar masslike density. There is fatty infiltration of the liver. Based on these findings he decreased her prednisone to 10 mg daily. The plan was to treat her with steroids for a total of 1 year and possibly stop the prednisone altogether by May 2017. The patient has also been followed by Dr. Finley as Susie has been in the consideration of treatment. The patient presented here yesterday to the emergency room with complaints of increasing shortness of breath cough and congestion. She's had increased coughing throughout the night as well. Her cough is productive with some blood- tinged clear sputum. No significant hemoptysis as she has had in the past. She has had some sore throat and difficulty swallowing. Her chest x-ray revealed revealed some patchy atelectasis in the left lung base. No leukocytosis. She did have a T-max of 100.5 on admission. Currently afebrile. She is maintaining good O2 saturations in the mid 90s on room air. No significant tachycardia. No tachypnea. Hemodynamically stable. She is breathing easier today as compared to yesterday. She's been initiated on bronchodilators, IV Solu-Medrol and Levaquin. Reevaluated today on 01/27/2017, patient continues to have shortness of breath cough and wheezing. Slight improvement but not much according to the patient. Patient is already maximized on multiple bronchodilators, and she is on relatively high dose of steroids. Her WBC count seems to be high at 24.6, rest of the labs were relatively unremarkable. Chest x-ray showed some patchy atelectasis or possibly developing infiltrate in the left lower lobe. Patient is empirically on antibiotics. Reevaluated today on 01/28/2017, continues to cough and wheeze, slight improvement but not quite back to her baseline. Patient remains on multiple bronchodilators, steroids, and I don't believe she is quite ready for discharge planning at this point. Remains on antibiotics. Objective - Vital Signs Vital signs: Vital Signs Temp 98.1 F 01/28/17 07:00 Pulse 73 01/28/17 08:59 Resp 17 01/28/17 07:14 BP 158/81 01/28/17 07:00 Pulse Ox 95 01/28/17 07:00 Intake & Output 01/27/17 01/28/17 01/28/17 18:59 06:59 18:59 Intake Total 240 340 Balance 240 340 Intake: Oral 240 340 Other: Voiding Method Toilet Toilet Toilet # Voids 1 1 - Exam GENERAL EXAM: Alert, active, comfortable in no apparent distress. HEAD: Normocephalic. EYES: Normal reaction of pupils, equal size. NOSE: Clear with pink turbinates. THROAT: No erythema or exudates. NECK: No masses, no JVD. CHEST: No chest wall deformity. LUNGS: Equal air entry with few scattered rhonchi, diminished. CVS: S1 and S2 normal with no audible murmurs, regular rhythm. ABDOMEN: No hepatosplenomegaly, normal bowel sounds, no guarding or rigidity. SPINE: No scoliosis or deformity SKIN: No rashes CENTRAL NERVOUS SYSTEM: No focal deficits, tone is normal in all 4 extremities. Extremities: There is trace peripheral edema. No clubbing, no cyanosis. Peripheral pulses are intact. - Labs CBC & Chem 7: 01/28/17 07:02 08/20/17 07:02 Labs: Abnormal Lab Results - Last 24 Hours (Table) 01/28/17 01/28/17 Range/Units 07:02 07:02 WBC 24.1 H (3.8-10.6) k/uL Neutrophils # 22.5 H (1.3-7.7) k/uL Lymphocytes # 0.9 L (1.0-4.8) k/uL Glucose 114 H (74-99) mg/dL Total Protein 5.5 L (6.3-8.2) g/dL Albumin 3.2 L (3.5-5.0) g/dL Microbiology - Last 24 Hours (Table) 01/25/17 11:58 Blood Culture - Preliminary Blood No Growth after 48 hours 01/26/17 08:00 Gram Stain - Preliminary Sputum Sputum Culture - Preliminary Assessment and Plan Plan: #1 Acute exacerbation of moderate persistent chronic bronchial asthma and #2 IgG4 related lung disease, currently on 10 mg of prednisone daily in the outpatient setting. #3 Lung mass of the right lung and right paratracheal lymph node have decreased in size on 01/05/2017 CAT scan. #4 Fatty infiltration of the liver. #5 History of hemoptysis. #6 History of multiple right-sided rib fractures. #7 General anxiety disorder. Recommendation: Continue present treatment plan continue bronchodilators, steroids, antibiotics, not quite ready for discharge planning at this point, possible discharge plans early Sunday. Time with Patient: Less than 30
--- NOTE | 2017-01-28 13:21 | P.PN ---
Subjective Principal diagnosis: Acute respiratory failure, left lower lobe pneumonia, IgG4 autoimmune deficiency , chronic hemoptysis, moderate persistent asthmatic bronchitis, This is a pleasant 66-year-old lady patient of Dr. Winston Wagoner and Dr. Hampton. She has underlying history of chronic bronchial asthma hemoptysis asthma and tracheobronchial malacia GERD IgGg4 autoimmune and masslike consolidation for which she underwent multiple PET CTs serially performed since February 2015, along with post-coloscopy by Dr. Hampton, right upper lobe preferred to [facility] followed with Dr. Stahl in February 2016. Needle biopsy of the right paratracheal lymph node performed last February 2016 showed scattered bronchial lining cells with mild atypia favor reactive no cytological malignant cells identified and decided to watch the nodules without any surgical intervention. She was ill now presenting to the hospital secondary to increasing shortness of breath and cough and fever, she recently had been decreased her prednisone from 40 mg chronically for the past 3 mos. tapered to 20 mg x 3 mos mg a day to 10 mg daily, as prescribed by Dr. Hampton. she also follows with dr gamble oncology. no malignancy identified she was seen in the emergency room secondary to the above symptoms, chest x- ray revealed hypoventilatory changes with patchy atelectasis or developing infiltrate at left base, patient has bronchospasms recurrent for which she has to be admitted with pulmonary, infectious disease consult. 01/26: Patient continues to have wheezing for which no change in her medications were made. She has been seen by Dr. Gibbons. White count has normalized. Blood culture showing no growth after [address] with Dr. Zabala. 01/27/2017: Patient is feeling slightly better off oxygen at this point continue to have cough wheezes. Patient was seen infectious disease still waiting for the final culture. Also seen Dr. Gibbons her was continue on current nebulizer treatment along with steroid. 01/28/2017: Patient is feeling better steroid will be switched to oral patient ambulating more her cough and shortness of breath has improved from hopefully will be going home tomorrow. Objective - Vital Signs Vital signs: Vital Signs Temp 98.1 F 01/28/17 07:00 Pulse 86 01/28/17 12:35 Resp 17 01/28/17 07:14 BP 158/81 01/28/17 07:00 Pulse Ox 95 01/28/17 07:00 Intake & Output 01/27/17 01/28/17 01/28/17 18:59 06:59 18:59 Intake Total 240 340 Balance 240 340 Intake: Oral 240 340 Other: Voiding Method Toilet Toilet Toilet # Voids 1 1 - Constitutional General appearance: Present: cooperative, no acute distress. Absent: average body habitus, disheveled, mild distress, morbidly obese, obese, severe distress , thin - EENT Eyes: Present: normal appearance. Absent: abnormal pupil, anicteric sclerae, disc margins sharp, edentulous, EOMI, PERRLA, fundus normal, photophobia, dentition normal, poor dentition, ptosis, scleral icterus ENT: Present: hard of hearing, normal oropharynx. Absent: hearing grossly normal, NA/AT, other, pharyngeal erythema, thrush, tonsillar exudates, tonsillar swelling Ears: bilateral: normal - Neck Neck: Present: normal ROM Carotids: bilateral: upstroke normal, upstroke delayed Thyroid: bilateral: normal size - Respiratory Respiratory: bilateral: diminished, dullness, rales, rhonchi, wheezing, prolonged expiration - Cardiovascular Rhythm: regular Heart sounds: normal: S1, S2 Abnormal Heart Sounds: Present: systolic murmur, S3 Gallop - Gastrointestinal General gastrointestinal: Present: decreased bowel sounds, distended, soft. Absent: absent bowel sounds, hepatomegaly, hyperactive bowel sounds, normal bowel sounds, organomegaly, rigid, scaphoid, splenomegaly, tenderness, umbilical hernia, ventral hernia - Integumentary Integumentary: Present: normal, pale, rash. Absent: calor, cellulitis, cyanotic , decreased turgor, flushed, jaundiced, normal turgor, ulcer - Neurologic Neurologic: Present: CNII-XII intact - Musculoskeletal Musculoskeletal: Present: gait normal, generalized weakness, strength equal bilaterally - Psychiatric Psychiatric: Present: A&O x's 3, appropriate affect - Labs CBC & Chem 7: 01/28/17 07:02 01/28/17 07:02 Labs: Abnormal Lab Results - Last 24 Hours (Table) 01/28/17 01/28/17 Range/Units 07:02 07:02 WBC 24.1 H (3.8-10.6) k/uL Neutrophils # 22.5 H (1.3-7.7) k/uL Lymphocytes # 0.9 L (1.0-4.8) k/uL Glucose 114 H (74-99) mg/dL Total Protein 5.5 L (6.3-8.2) g/dL Albumin 3.2 L (3.5-5.0) g/dL Microbiology - Last 24 Hours (Table) 01/26/17 08:00 Gram Stain - Final Sputum Sputum Culture - Final 01/25/17 11:58 Blood Culture - Preliminary Blood No Growth after 48 hours Assessment and Plan Plan: 1 acute respiratory failure: Combination of left lower lobe pneumonia along with and align IgGG4 deficiency: Continue to treat pneumonia and continue to treat COPD exacerbation at this point continue O2. 2. Left lower lobe pneumonia with underlying history off IgGG4 disease currently on chronic prednisone and chronic rhonchi asthma patient currently is on oral Levaquin, IV Solu-Medrol, nebulized albuterol Atrovent, 3. IGG4 autoimmune disease, a plasma cell related disease follows with dr hampton on oral prednisone, also seeing dr gamble. shes scheduled to have repeat ct in 04/2017 for surveilance of lymph nodes in the chest. she has chronic hemopytisis. they are contemplating steroid sparing agents including rituximab or azathioprine or methotrexate or cyclophosphamide, oncology Dr. Gamble might need to be consulted during this admission, serum protein electrophoresis will be obtained IgG4 for an IgE levels will be obtained to evaluate for relapse 4. 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 Moderate persistent asthmatic bronchitis, stable. Continue nebulizer treatments. Switch prednisone to oral patient will continue tapering dose for the next 16 days. 6. Gastroesophageal reflux disease and gastric intestinal prophylaxis. Continue Protonix. 7. Generalized anxiety disorder. Continue Paxil 10 mg at bedtime. 8. Neurodermatitis of the right arm, stable. Discharge planning: Agreed by pulmonary patient be discharged home tomorrow.
[2017-01-28] MEDS: LEVOFLOXACIN 750MG-D5W PMX 750 MG in DEXTROSE/WATER 1 150ML.BAG IVPB SCH (14:30)
[2017-01-28] MEDS: predniSONE 20 MG TAB PO SCH (14:31)
[2017-01-28] MEDS: cefTRIAXone 2,000 MG in SODIUM CHLORIDE 0.9% 100 ML IVPB SCH (15:51)
[2017-01-28] MEDS: guaiFENesin-DM 100-10MG/5ML 10 ML CUP PO PRN (21:34)
[2017-01-28] MEDS: PARoxetine 10 MG TAB PO SCH (21:35)
[2017-01-28] MEDS: HYDROcodone/APAP 10-325MG 1 EACH TAB PO PRN (21:35)
[2017-01-28 22:55] VITALS: RESP 16
[2017-01-29 07:35] LABS: Basophils % (A) 0 %; CH 28.8; CHCM 32.4; Eosinophils # (A) 0.1 k/uL (0-0.7); Eosinophils % (A) 0 %; HCT 41.3 % (34.0-46.0); HDW 2.45; HGB 13.3 gm/dL (11.4-16.0); Luc # (Auto) 0.19; Luc % (Auto) 1; Lymphocytes # (A) 1.4 k/uL (1.0-4.8); Lymphocytes % (A) 7 %; MCH 28.7 pg (25.0-35.0); MCHC 32.1 g/dL (31.0-37.0); MCV 89.5 fL (80.0-100.0); Mean Platelet Volume 7.3; Monocytes # (A) 0.9 k/uL (0-1.0); Monocytes % (A) 5 %; Neutrophils # (A) 16.9 k/uL (1.3-7.7); Neutrophils % (A) 87 %; RBC 4.62 m/uL (3.80-5.40); RDW 15.1 % (11.5-15.5); WBC 19.4 k/uL (3.8-10.6); WBC (Perox) 20.16
[2017-01-29 07:44] VITALS: BP 144/70; TEMP 97.6
[2017-01-29] MEDS: IPRATROPIUM-ALBUTEROL 3 ML NEB INHALATION PRN ×2 (08:03→11:50)
[2017-01-29 08:08] LABS: Mis test requested (Blood) IgG Subclasses (4)
[2017-01-29 08:11] LABS: ALT 51 U/L (9-52); AST 34 U/L (14-36); Alkaline Phosphatase 52 U/L (38-126); Anion Gap 9 mmol/L; Blood Urea Nitrogen 13 mg/dL (7-17); Calcium 9.1 mg/dL (8.4-10.2); Carbon Dioxide 27 mmol/L (22-30); Chloride 104 mmol/L (98-107); Glucose 92 mg/dL (74-99); Non-African American GFR(MDRD) >60 (>60 ml/min/1.73 sqM); Potassium 3.9 mmol/L (3.5-5.1); Sodium 140 mmol/L (137-145); Total Bilirubin 0.3 mg/dL (0.2-1.3)
[2017-01-29] MEDS: ENOXAPARIN 40 MG/0.4 ML SYRINGE SQ SCH (09:04)
[2017-01-29] MEDS: PANTOPRAZOLE 40 MG TABLET PO SCH (09:04)
[2017-01-29] MEDS: predniSONE 20 MG TAB PO SCH (09:04)
[2017-01-29] MEDS: guaiFENesin-DM 100-10MG/5ML 10 ML CUP PO PRN (09:41)
[2017-01-29] MEDS: HYDROcodone/APAP 10-325MG 1 EACH TAB PO PRN ×2 (09:43→14:25)
--- NOTE | 2017-01-29 10:59 | CDI ---
In responding to this query, please exercise your independent professional judgment. The [facility] Coding Staff and Clinical Documentation Specialists appreciate your assistance in clarifying documentation, maintaining compliance with coding guidelines, accurately documenting patients condition and capturing severity of illness. The fact that a question is asked does not imply that any particular answer is desired or expected. Communication forms are a method of clarifying documentation and are not made part of the Legal Health Record. Thank you in advance for your clarification. Last Revision, August 2015 [place] [id number] [facility] [place] [address] Documentation Clarification Form Date: 01/29/2017 10:44:00 AM From: Amie Grant Admit Date: 01/25/2017 1:30:00 PM Patient Name: Nury Willett Visit Number: [id number] Discharge Date: Dr. Moisés Rowell/Ltea Stanley [employer] The patient presented with complaint of cough and shortness of breath. History/Risk Factors: Chronic hemoptysis, IgG type of autoimmune pulmonary disease, Asthma, Tobacco use: Clinical Indicators: Shortness of breath, she also has significant recurrent bronchospasm. Vital signs/Pulse oximetry: 183/84 97 20 100.5 98 % RA Lung/Breathing assessment: Wheezing is noted to the bilateral chest with occasional cough. Treatment: Breathing TX Duoneb's Levaquin IV Robitussin Dm Rocephin IV Solu-Medrol IV (taper) Monitor O2 Sat's (titrate) In your professional opinion, can you please clarify if these findings signify one of the following conditions? Acuity: o Acute o Chronic o Acute on Chronic Respiratory Status: o Respiratory failure o Respiratory failure with hypercapnia o Respiratory failure with hypoxia o Acute Respiratory Distress o Other Diagnosis, please specify o Unable to determine Please document in your progress notes and discharge summary in order to capture severity of illness and risk of mortality. Include clinical findings that support your diagnosis. FYI: Press F11 to launch patient chart. ANNELIESE
--- NOTE | 2017-01-29 11:04 | PN ---
DATE OF SERVICE: 01/28/17 REASON FOR FOLLOW UP: Pneumonia. INTERVAL HISTORY: The patient is afebrile. She is breathing comfortably. Still has some cough and bringing up some sputum. No chest pain. No abdominal pain or any diarrhea. On examination, blood pressure 152/72 with a pulse of 78. Temperature 98. She is 98% on room air. General description is an elderly female up in the chair in no distress. Respiratory system unlabored breathing. Coarse breath sounds bilaterally. Heart S1, S2 regular rate and rhythm. Abdomen soft. No tenderness. LABS: Hemoglobin 13.7, white count ( ). BUN 13, creatinine 0.70. Sputum ( ) blood culture has been negative. DIAGNOSTIC IMPRESSION AND PLAN: The patient admitted to the hospital with cough, difficulty breathing and concern for pneumonia, likely community acquired as the patient seems to have clinical improvement and her sputum culture has been negative for any resistant pathogen. Currently on Rocephin and Levaquin. She should be able to finish therapy with INR level, continue on oral Ceftin for around 7 to 10 days along with steroids and bronchodilators per pulmonary. Continue supportive care. MTDD
[2017-01-29 11:51] LABS: Glucose,Whole Blood 95 mg/dL (75-99)
[2017-01-29 12:09] VITALS: PULSE 72
--- NOTE | 2017-01-29 12:30 | P.PN ---
Subjective Progress note dated 01/29/2017 66-year-old female with a history of a acute exacerbation of moderate persistent chronic bronchial asthma lung mass in the right long hemoptysis nonalcoholic steatohepatitis multiple right-sided rib fractures and generalized anxiety disorder. The patient also has a history of IgG 4 related lung disease , currently on prednisone. She's doing relatively well. Hoping to go home today. Sees my partner in the office. Primary Dr. Wagoner. The patient states that her shortness breath chest tightness wheezing and cough are all improved. Patient continues on bronchodilators steroids and antibiotics. Objective - Vital Signs Vital signs: Vital Signs Temp 97.6 F 01/29/17 07:00 Pulse 72 01/29/17 12:09 Resp 16 01/29/17 07:00 BP 144/70 01/29/17 07:00 Pulse Ox 95 01/29/17 08:05 Intake & Output 01/28/17 01/29/17 01/29/17 18:59 06:59 18:59 Intake Total 240 590 Balance 240 590 Intake: Oral 240 590 Other: Voiding Method Toilet Toilet Toilet # Voids 3 3 - Exam No acute distress, oriented 3. HEENT examination is grossly unremarkable. Mucous membranes are moist. No oral lesions. Neck supple. Full range of motion. No adenopathy or thyromegaly. Cardiovascular examination reveals regular rhythm rate. S1-S2 normal. No S3- S4 or murmur. Lungs reveal some mild expiratory wheezes. Breath sounds are equal. The slight prolongation. No crackles. Abdomen soft bowel sounds are heard. Semis are intact. No cyanosis clubbing or edema. Skin without rash. Neurologic examination is nonfocal. - Labs CBC & Chem 7: 01/29/17 07:07 01/29/17 07:07 Labs: Abnormal Lab Results - Last 24 Hours (Table) 01/29/17 01/29/17 Range/Units 07:07 07:07 WBC 19.4 H (3.8-10.6) k/uL Neutrophils # 16.9 H (1.3-7.7) k/uL Total Protein 5.0 L (6.3-8.2) g/dL Albumin 2.8 L (3.5-5.0) g/dL Microbiology - Last 24 Hours (Table) 01/25/17 11:58 Blood Culture - Preliminary Blood No Growth after 72 hours 01/26/17 08:00 Gram Stain - Final Sputum Sputum Culture - Final Assessment and Plan (1) Bronchospasm Status: Acute (2) Cough Status: Acute (3) Dyspnea Status: Acute (4) Hemoptysis Status: Acute (5) Pneumonia Status: Acute (6) Asthma exacerbation Status: Acute (7) Bronchitis Status: Acute (8) Hemoptysis Status: Acute (9) Intractable nausea and vomiting Status: Acute (10) Lung mass Status: Acute (11) Mediastinal adenopathy Status: Acute (12) H/O gastroesophageal reflux (GERD) Status: Chronic Plan: Plan dated 01/29/2017 The patient seemed be doing relatively well. She'll continue on bronchodilators steroids and antibiotics. The patient will follow with my partner in the office. She's waiting for her primary doctor to possibly discharge her today. Not sure whether or not she is going home. The patient otherwise is doing reasonably well. Ask about a narcotic prescription. She apparently gets it from my partner. I told her she has to get up from him. No additional recommendations are made. Prognosis is guarded. Time with Patient: Less than 30
--- NOTE | 2017-01-29 15:05 | P.DS ---
Providers Date of admission: 01/25/17 13:30 Expected date of discharge: 01/29/17 Attending physician: Jackeline Lugo Consults: 01/25/17 13:25 Consult Physician Routine Consulting Provider: Noam Zabala Consult Reason/Comments: pneumonia Do you want consulting provider notified?: Yes 01/25/17 13:30 Consult Physician Routine Consulting Provider: Tyler Salgado Consult Reason/Comments: pneumonia, chronic lung disease Do you want consulting provider notified?: Yes Primary care physician: [facility] Course: This is a pleasant 66-year-old lady patient of Dr. Winston Wagoner and Dr. Salgado. She has underlying history of chronic bronchial asthma hemoptysis asthma and tracheobronchial malacia GERD IgGg4 autoimmune and masslike consolidation for which she underwent multiple PET CTs serially performed since February 2015, along with post-coloscopy by Dr. Salgado, right upper lobe preferred to [facility] followed with Dr. Stahl in February 2016. Needle biopsy of the right paratracheal lymph node performed last February 2016 showed scattered bronchial lining cells with mild atypia favor reactive no cytological malignant cells identified and decided to watch the nodules without any surgical intervention. She was ill now presenting to the hospital secondary to increasing shortness of breath and cough and fever, she recently had been decreased her prednisone from 40 mg chronically for the past 3 mos. tapered to 20 mg x 3 mos mg a day to 10 mg daily, as prescribed by Dr. Salgado. she also follows with dr gamble oncology. no malignancy identified she was seen in the emergency room secondary to the above symptoms, chest x- ray revealed hypoventilatory changes with patchy atelectasis or developing infiltrate at left base, patient has bronchospasms recurrent for which she has to be admitted with pulmonary, infectious disease consult. 01/26: Patient continues to have wheezing for which no change in her medications were made. She has been seen by Dr. Gibbons. White count has normalized. Blood culture showing no growth after [address] with [address] Zabala. 01/27/2017: Patient is feeling slightly better off oxygen at this point continue to have cough wheezes. Patient was seen infectious disease still waiting for the final culture. Also seen Dr. Gibbons her was continue on current nebulizer treatment along with steroid. 01/28/2017: Patient is feeling better steroid will be switched to oral patient ambulating more her cough and shortness of breath has improved from hopefully will be going home tomorrow. 01/29: Patient has been cleared for discharge by Dr. Mckeon. Patient will be provided with prescriptions for antibiotic and tapering dose of prednisone. She relates that Dr. Ervin told her to remain on prednisone 20 mg after the taper. Patient will be discharged home today in stable condition. Discharge diagnoses: 1 acute respiratory failure: Combination of left lower lobe pneumonia along with and IgGG4 deficiency 2. Left lower lobe pneumonia with underlying history of IgGG4 disease currently on chronic prednisone 3. IGG4 autoimmune disease, a plasma cell related disease follows with Dr Salgado on oral prednisone, also seeing Dr Gamble. shes scheduled to have repeat ct in 04/2017 for surveilance of lymph nodes in the chest. she has chronic hemopytisis. they are contemplating steroid sparing agents including rituximab or azathioprine or methotrexate or cyclophosphamide 4. Chronic recurrent hemoptysis from igg4 disease 5. Moderate persistent asthmatic bronchitis, stable 6. Gastroesophageal reflux disease 7. Generalized anxiety disorder 8. Neurodermatitis of the right arm, stable. Discharge plan: Return home Impression and plan of care have been directed as dictated by the signing physician. Leta Stanley nurse practitioner acting as scribe for signing physician. Cc: Dr. Shiv Wagoner Patient Condition at Discharge: Good Plan - Discharge Summary New Discharge Prescriptions: New Levofloxacin [Levaquin] 750 mg PO DAILY #5 tab predniSONE 0 mg PO DIRECTED #40 tab Continue PARoxetine HCL [Paroxetine HCl] 10 mg PO HS Omeprazole 20 mg PO DAILY Albuterol Inhaler [Ventolin Hfa Inhaler] 2 puff INHALATION RT-Q6H PRN PRN Reason: Shortness Of Breath Albuterol Nebulized [Ventolin Nebulized] 2.5 mg INHALATION RT-QID PRN PRN Reason: Shortness Of Breath HYDROcodone/APAP 10-325MG [[place] 10-325] 1 tab PO Q4HR PRN PRN Reason: Pain Changed predniSONE 20 mg PO DAILY #60 tab Discharge Medication List Albuterol Inhaler [Ventolin Hfa Inhaler] 2 puff INHALATION RT-Q6H PRN 08/19/15 [ History] Omeprazole 20 mg PO DAILY 08/19/15 [History] PARoxetine HCL [Paroxetine HCl] 10 mg PO HS 08/19/15 [History] Albuterol Nebulized [Ventolin Nebulized] 2.5 mg INHALATION RT-QID PRN 02/29/16 [ History] HYDROcodone/APAP 10-325MG [[place] 10-325] 1 tab PO Q4HR PRN 01/25/17 [History] Levofloxacin [Levaquin] 750 mg PO DAILY #5 tab 01/29/17 [Rx] predniSONE 0 mg PO DIRECTED #40 tab 01/29/17 [Rx] predniSONE 20 mg PO DAILY #60 tab 01/29/17 [Rx] Follow up Appointment(s)/Referral(s): Shiv Wagoner MD [Primary Care Provider] - 02/05/17 11:30 am Tyler Salgado MD [STAFF PHYSICIAN] - 03/05/17 10:30 am Patient Instructions/Handouts: Prednisone (By mouth), Levofloxacin (By mouth), Hemoptysis (GEN), Dyspnea (GEN), Pneumonia (DC) Discharge Disposition: HOME SELF-CARE
--- NOTE | 2017-01-29 18:10 | PN ---
DATE OF SERVICE: 01/29/17 REASON FOR FOLLOW UP: Pneumonia. INTERVAL HISTORY: The patient is afebrile. She is breathing comfortably. She mentioned she did have some cough this morning. ( ). No chest pain. No abdominal pain or any diarrhea. On examination, blood pressure 144/72 with a pulse of 76. Temperature 97.6. She is 97% on room air. General description is an elderly female up in bed in no distress. Respiratory system unlabored breathing. Coarse breath sounds bilaterally. Heart S1, S2 regular rate and rhythm. Abdomen soft. No tenderness. LABS: No new labs have been obtained today. Sputum has been usual sputum marisol. DIAGNOSTIC IMPRESSION AND PLAN: The patient admitted to the hospital with difficulty breathing with concern for possible left lower lobe pneumonia with overall improvement on the Cefazolin and Levaquin, plan to finish therapy with po Levaquin for another 5 to 7 days with close outpatient follow-up. SALUDD
[2017-01-30] MEDS ORDERED: LEVOFLOXACIN 750 MG TAB PO SCH (14:00)
== END 2017-01-29 14:35 | disposition home or self-care (01) | DRG 190 ==
LOC: EC 11:08 → 5MS5E 13:30
PROVIDERS: ADMIT Family Medicine; ATTEND Family Medicine
DX: J44.0 Chronic obstructive pulmonary disease with (acute) lower respiratory infection (principal); J18.9 Pneumonia, unspecified organism; J96.01 Acute respiratory failure with hypoxia; D80.3 Selective deficiency of immunoglobulin G [IgG] subclasses; J45.51 Severe persistent asthma with (acute) exacerbation; R04.2 Hemoptysis; J98.11 Atelectasis; R13.10 Dysphagia, unspecified; K75.81 Nonalcoholic steatohepatitis (NASH); K21.9 Gastro-esophageal reflux disease without esophagitis; J44.1 Chronic obstructive pulmonary disease with (acute) exacerbation; F41.1 Generalized anxiety disorder; L28.0 Lichen simplex chronicus; I10 Essential (primary) hypertension; I45.10 Unspecified right bundle-branch block; M19.91 Primary osteoarthritis, unspecified site; Z90.49 Acquired absence of other specified parts of digestive tract; Z90.710 Acquired absence of both cervix and uterus; Z79.52 Long term (current) use of systemic steroids; Z79.899 Other long term (current) drug therapy; Z88.5 Allergy status to narcotic agent; Z88.8 Allergy status to other drugs, medicaments and biological substances; Z91.018 Allergy to other foods; Z87.828 Personal history of other (healed) physical injury and trauma
CPT/HCPCS: 36415; 71020; 80053; 82550; 82553; 82784; 82785; 82787; 83880; 84165; 84484; 85025; 85610; 85730; 86334; 87040; 87070; 87205; 93005; 94640; 94760; 96365; 96375; 99285

== ENCOUNTER → 2017-06-28 | Outpatient (CLI) | payer MEDICARE ==
--- NOTE | 2017-06-29 10:45 | MM ---
Reason for exam: screening (asymptomatic). Last mammogram was performed 3 years and 1 month ago. History: Patient is postmenopausal. Physical Findings: A clinical breast exam by your physician is recommended on an annual basis and results should be correlated with mammographic findings. MG 3D Screening Mammo W/Cad Bilateral CC and MLO view(s) were taken. Prior study comparison: May 13, 2014, bilateral MG screening mammo w CAD. April 29, 2013, bilateral digital screening mammo w/CAD. The breast tissue is almost entirely fat. No significant changes when compared with prior studies. ASSESSMENT: Negative, BI-RAD 1 RECOMMENDATION: Routine screening mammogram of both breasts in 1 year.
== END | disposition home or self-care (01) ==
LOC: RADMAMWWP 09:31
PROVIDERS: ATTEND Family Medicine
DX: Z12.31 Encounter for screening mammogram for malignant neoplasm of breast (principal)
CPT/HCPCS: 77063; 77067

== ENCOUNTER → 2017-06-28 | Outpatient (CLI) | payer MEDICARE ==
[2017-06-28 09:00] LABS: Blood Urea Nitrogen 19 mg/dL (7-17)
--- NOTE | 2017-06-28 10:26 | CT ---
EXAMINATION TYPE: CT chest w con DATE OF EXAM: 06/28/2017 COMPARISON: 01/05/2017 HISTORY: Patient complains of hemoptysis, cough, and bilateral chest pain. CT DLP: 501.8 mGycm Automated exposure control for dose reduction was used. CONTRAST: CT scan of the chest is performed with IV Contrast, patient injected with 100 mL of Omnipaque 300. FINDINGS: LUNGS: Right suprahilar mass abutting the mediastinum is again noted and currently measures 2.7 x 1.7 cm versus 3.2 x 1.4 cm previously. Additional nodule right upper lobe has decreased in size and also abuts the mediastinum and measures 1.4 x 1 cm versus 2.1 x 1.2 cm previously. Additional nodule righ t lung base abutting the diaphragm fissures 1.7 cm versus 1.9 cm previously. Pleural-based soft tissu e left lung base is essentially unchanged. No new nodules are seen. Basilar atelectasis and parenchym al scarring. No pleural effusion identified. MEDIASTINUM: There are no greater than 1 cm hilar or mediastinal lymph nodes. No pericardial effusi on is seen. Thoracic aorta is of normal caliber. The heart is not enlarged. UPPER ABDOMEN: There is evidence of hepatic steatosis. Probable focal sparing adjacent to the gallbla dder fossa. Small sliding-type hiatal hernia.. OTHER: No additional significant abnormality is seen. IMPRESSION: 1. Masslike densities right lung are either smaller in size or stable. 2. Density left lung base appears stable. 3. No adenopathy greater than 1 cm. 4. Hepatic steatosis with areas of focal fatty sparing.
== END | disposition home or self-care (01) ==
LOC: RADCTMAIN 08:14
PROVIDERS: ATTEND Internal Medicine Critical Care Medicine
DX: R91.8 Other nonspecific abnormal finding of lung field (principal); Z88.6 Allergy status to analgesic agent; Z88.8 Allergy status to other drugs, medicaments and biological substances
CPT/HCPCS: 82565; 84520; 71260; 36415; Q9967

== ENCOUNTER 2017-09-13 15:37 | Emergency (ER) | payer MEDICARE ==
[2017-09-13 17:10] LABS: ALT 57 U/L (9-52); AST 33 U/L (14-36); Albumin 3.6 g/dL (3.5-5.0); Alkaline Phosphatase 72 U/L (38-126); Anion Gap 12 mmol/L; Blood Urea Nitrogen 14 mg/dL (7-17); Calcium 9.5 mg/dL (8.4-10.2); Carbon Dioxide 25 mmol/L (22-30); Chloride 105 mmol/L (98-107); Glucose 113 mg/dL (74-99); Potassium 4.5 mmol/L (3.5-5.1); Sodium 142 mmol/L (137-145); Total Bilirubin 0.5 mg/dL (0.2-1.3); Total Protein 5.9 g/dL (6.3-8.2)
[2017-09-13 17:13] LABS: Basophils % (A) 0 %; Eosinophils # (A) 0.2 k/uL (0-0.7); Eosinophils % (A) 1 %; HCT 44.4 % (34.0-46.0); HGB 14.6 gm/dL (11.4-16.0); Lymphocytes % (A) 7 %; MCHC 32.9 g/dL (31.0-37.0); MCV 85.1 fL (80.0-100.0); Mean Platelet Volume 8.4; Monocytes # (A) 0.5 k/uL (0-1.0); Monocytes % (A) 3 %; Neutrophils # (A) 13.3 k/uL (1.3-7.7); Neutrophils % (A) 89 %; Platelet Count 294 k/uL (150-450); RBC 5.22 m/uL (3.80-5.40); RDW 14.1 % (11.5-15.5)
[2017-09-13 17:22] LABS: Prothrombin Time 9.7 sec (9.0-12.0)
--- NOTE | 2017-09-13 17:28 | XR ---
EXAMINATION TYPE: XR chest 2V DATE OF EXAM: 09/13/2017 COMPARISON: 01/28/2017 INDICATION: Chest pain short of breath TECHNIQUE: Frontal and lateral views of the chest are obtained. FINDINGS: The heart size is normal. The pulmonary vasculature is normal. The lungs are clear. IMPRESSION: 1. No acute pulmonary process.
[2017-09-13 17:29] LABS: Partial Thromboplastin Time 20.6 sec (22.0-30.0)
[2017-09-13 17:35] LABS: Creatine Kinase 71 U/L (30-135)
[2017-09-13 17:48] LABS: Creatine Kinase MB 1.3 ng/mL (0.0-2.4); Troponin I <0.012 ng/mL (0.000-0.034)
[2017-09-13] MEDS ORDERED: methylPREDNISolone SOD SUCCI 125 MG/2 ML VIAL IV STA (19:01)
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
[2017-09-13 19:21] VITALS: BP 167/90; PULSE 75; RESP 16; TEMP 98.5
== END 2017-09-13 19:42 | disposition home or self-care (01) ==
LOC: EC 15:37
DX: D72.829 Elevated white blood cell count, unspecified (principal); R06.02 Shortness of breath; R05 Cough; J45.909 Unspecified asthma, uncomplicated; K21.9 Gastro-esophageal reflux disease without esophagitis; M19.90 Unspecified osteoarthritis, unspecified site; F32.9 Major depressive disorder, single episode, unspecified; F41.9 Anxiety disorder, unspecified; M81.0 Age-related osteoporosis without current pathological fracture; Z90.2 Acquired absence of lung [part of]; Z79.899 Other long term (current) drug therapy; Z79.891 Long term (current) use of opiate analgesic; Z79.51 Long term (current) use of inhaled steroids; Z79.52 Long term (current) use of systemic steroids; Z88.8 Allergy status to other drugs, medicaments and biological substances; Z88.6 Allergy status to analgesic agent; Z91.018 Allergy to other foods
CPT/HCPCS: 36415; 93005; 85379; 83880; 80053; 82550; 82553; 84484; 85025; 85610; 85730; 71046; 99285; 96374; J2930

== ENCOUNTER → 2017-12-20 | Outpatient (CLI) | payer MEDICARE ==
--- NOTE | 2017-12-21 07:51 | CT ---
EXAMINATION TYPE: CT chest w con DATE OF EXAM: 12/20/2017 COMPARISON: 06/28/2017 HISTORY: Pulmonary nodules. CT DLP: 510 mGycm. Automated Exposure Control for Dose Reduction was Utilized. TECHNIQUE: CT scan of the thorax is performed following with IV Contrast, patient injected with 100 mL of Isovue M300. FINDINGS: LUNGS: When measured in a similar fashion on the similar image (series 4 image 16 as opposed to the p rior series 10 image 14) there is slight interval decrease in size of the right upper lobe medial mas s abutting the mediastinal border with internal calcifications. This currently measures 2.1 x 1.3 cm and previously measured 2.4 x 1.5 cm at this location. This elongates along the mediastinal border an teriorly. Nodular area at the more anterior margin of the mediastinum adjacent to the ascending aorta on series 4 image 23 measures approximately 1.3 x 0.9 cm and is overall unchanged from the prior thi s measured 1.4 x 1.0 cm. Left basilar atelectasis/pleural based density is unchanged in the interim. No new pulmonary nodule or masses seen. Pleural parenchymal scarring at the right lateral lower lobe is also unchanged from the prior. There is no pleural effusion or pneumothorax seen. The tracheobron chial tree is patent. MEDIASTINUM: There are no greater than 1 cm hilar or mediastinal lymph nodes. No pericardial effusi on is seen. Minimal coronary artery calcifications are present. No enlargement of the ascending thor acic aorta. OTHER: Hepatic steatosis and a small hiatal hernia are incidentally seen. Gallbladder surgically abse nt. IMPRESSION: 1. Continued decrease in size of the right lobe elongated pulmonary nodule favoring a benign etiology although continued follow-up is recommended. No new adenopathy. 2. Stability of the left basilar opacity, likely chronic atelectasis. 3. Redemonstration of hepatic steatosis appearing at least moderate in degree.
== END | disposition home or self-care (01) ==
LOC: RADCTMAIN 15:38
PROVIDERS: ATTEND Internal Medicine Critical Care Medicine
DX: R91.1 Solitary pulmonary nodule (principal); R91.8 Other nonspecific abnormal finding of lung field; Z88.5 Allergy status to narcotic agent
CPT/HCPCS: 82565; 84520; 71260; 36415; Q9967

== ENCOUNTER → 2018-06-12 | Outpatient (CLI) | payer MEDICARE ==
[2018-06-12 13:16] LABS: Basophils # (A) 0.1 k/uL (0-0.2); Basophils % (A) 0 %; Eosinophils # (A) 0.2 k/uL (0-0.7); Eosinophils % (A) 1 %; HCT 46.9 % (34.0-46.0); HGB 15.1 gm/dL (11.4-16.0); Lymphocytes # (A) 1.3 k/uL (1.0-4.8); Lymphocytes % (A) 7 %; MCH 27.5 pg (25.0-35.0); MCHC 32.2 g/dL (31.0-37.0); MCV 85.5 fL (80.0-100.0); Mean Platelet Volume 6.8; Monocytes # (A) 0.7 k/uL (0-1.0); Monocytes % (A) 4 %; Neutrophils # (A) 15.3 k/uL (1.3-7.7); Neutrophils % (A) 87 %; Platelet Count 342 k/uL (150-450); RBC 5.48 m/uL (3.80-5.40); RDW 14.1 % (11.5-15.5); WBC 17.6 k/uL (3.8-10.6)
[2018-06-12 19:07] LABS: Albumin 4.3 g/dL (3.80-4.90); Albumin/Globulin Ratio 2.39 (1.20-2.10); Anion Gap 9.7 mmol/L (4.00-12.00); Calcium 9.6 mg/dL (8.7-10.3); Carbon Dioxide 28.3 mmol/L (21.6-31.8); Globulin 1.8 g/dL (1.6-3.3); Potassium 4.5 mmol/L (3.5-5.5); Total Bilirubin 0.9 mg/dL (0.2-1.2); Total Protein 6.1 g/dL (6.2-8.2)
== END ==
LOC: LABWHC1 11:47
PROVIDERS: ATTEND Internal Medicine Critical Care Medicine
DX: M35.8 Other specified systemic involvement of connective tissue (principal)
CPT/HCPCS: 36415; 80053; 85025

== ENCOUNTER 2019-02-21 15:58 | Inpatient (IN) | payer MEDICARE ==
[2019-02-21] MEDS ORDERED: ASPIRIN 81 MG PO STA (17:48)
[2019-02-21] MEDS ORDERED: NITROGLYCERIN OINT 1 INCH/GM PACKET TOPICAL STA (17:48)
[2019-02-21] MEDS ORDERED: MORPHINE SULFATE 4 MG/ML SYRINGE IV STA (17:49)
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
[2019-02-21 19:29] LABS: Basophils # (A) 0.1 k/uL (0-0.2); Basophils % (A) 1 %; Eosinophils # (A) 0.1 k/uL (0-0.7); Eosinophils % (A) 1 %; HCT 45.2 % (34.0-46.0); HGB 14.7 gm/dL (11.4-16.0); Lymphocytes # (A) 2.2 k/uL (1.0-4.8); Lymphocytes % (A) 18 %; MCH 27.8 pg (25.0-35.0); MCHC 32.5 g/dL (31.0-37.0); MCV 85.4 fL (80.0-100.0); Mean Platelet Volume 7.2; Monocytes # (A) 0.7 k/uL (0-1.0); Monocytes % (A) 6 %; Neutrophils # (A) 8.8 k/uL (1.3-7.7); Neutrophils % (A) 72 %; Platelet Count 367 k/uL (150-450); RDW 15.9 % (11.5-15.5); WBC 12.2 k/uL (3.8-10.6)
[2019-02-21 19:35] LABS: Appearance,Urine Clear (Clear); Bacteria,Urine Many /hpf; Bilirubin,Urine Negative (Negative); Blood,Urine Negative (Negative); Color,Urine Yellow; Glucose,Urine (UA) Negative (Negative); Ketones,Urine Negative (Negative); Leukocyte Esterase,Urine Large (Negative); Nitrite,Urine Negative (Negative); PH, Urine 7.5 (5.0-8.0); Protein,Urine Negative (Negative); Specific Gravity,Urine 1.011 (1.001-1.035); Squamous Epithelial Cell,Urine <1 /hpf (0-4); Urobilinogen,Urine <2.0 mg/dL (<2.0); WBC,Urine 21 /hpf (0-5)
[2019-02-21 19:37] LABS: INR 0.9 (<1.2); Partial Thromboplastin Time 22.3 sec (22.0-30.0); Prothrombin Time 9.6 sec (9.0-12.0)
[2019-02-21 19:40] LABS: ALT 59 U/L (9-52); AST 44 U/L (14-36); African American GFR (CKD) >90 (>60 ml/min/1.73 sqM); Alkaline Phosphatase 85 U/L (38-126); Anion Gap 9 mmol/L; Blood Urea Nitrogen 10 mg/dL (7-17); Calcium 9.7 mg/dL (8.4-10.2); Carbon Dioxide 28 mmol/L (22-30); Chloride 102 mmol/L (98-107); Creatine Kinase 68 U/L (30-135); Glucose 115 mg/dL (74-99); Magnesium 2.4 mg/dL (1.6-2.3); Sodium 139 mmol/L (137-145); Total Bilirubin 0.6 mg/dL (0.2-1.3); Total Protein 6.8 g/dL (6.3-8.2)
--- NOTE | 2019-02-21 22:38 | CT ---
EXAMINATION TYPE: CT angio chest DATE OF EXAM: 02/21/2019 8:20 PM COMPARISON: CT chest on 12/20/2017 HISTORY: chest pain CT DLP: 516.3 mGycm Automated exposure control for dose reduction was used. CONTRAST: CTA scan of the thorax is performed with IV Contrast, patient injected with 80cc mL of Isovue 370, pu lmonary embolism protocol. . FINDINGS: Stable medial right upper lobe mass abutting the mediastinal border with internal calcifications lucrecia uring 2.1 AP by 1.3 cm TR dimension. Nodular opacity along the right anterior margin of the mediastin um is also stable measuring 1.3 x 0.9 cm. New right lower lobe lung nodule abutting the pleura measur es 1.5 x 1.7 x 1.4 cm in TR by AP by cc dimension. Subsegmental bibasilar atelectasis. No airspace co nsolidation. No pleural effusion or pneumothorax. No pulmonary arterial filling defect. Pulmonary arterial enlargement. Normal course and caliber of th e thoracic aorta with few atheromatous calcifications. No significant cardiomegaly. No pericardial effusion. Low-attenuation of the liver compatible with steatosis. Surgically absent gallbladder. Small hiatal h ernia. No osseous destructive lesion. IMPRESSION: 1. No pulmonary embolism. 2. Stable size of right upper lobe pulmonary nodules. There is a new left lower lobe pulmonary nodule measuring up to 1.7 cm in maximal dimension, PET/CT is recommended. 3. Hepatic steatosis. Small hiatal hernia.
--- NOTE | 2019-02-21 23:33 | XR ---
EXAMINATION TYPE: XR chest 2V DATE OF EXAM: 02/21/2019 COMPARISON: NONE HISTORY: Chest pain, dizziness TECHNIQUE: Frontal and lateral views of the chest are obtained. FINDINGS: There is no focal air space opacity, pleural effusion, or pneumothorax seen. Subsegmental bibasilar atelectasis, left greater than right. The cardiac silhouette size is within normal limits. The osseous structures are intact. IMPRESSION: No acute cardiopulmonary process.
[2019-02-22] MEDS: NITROGLYCERIN OINT 1 INCH/GM PACKET TOPICAL SCH ×5 (01:43→23:27)
[2019-02-22 01:58] VITALS: BMI 42.5
[2019-02-22] MEDS ORDERED: ONDANSETRON 4 MG/2 ML VIAL IVP PRN (02:21)
[2019-02-22] MEDS: ACETAMINOPHEN TAB 325 MG TAB PO PRN ×2 (02:31→15:55)
[2019-02-22 07:03] LABS: Cholesterol 182 mg/dL (<200); HDL Cholesterol 46 mg/dL (40-60); LDL Cholesterol,Calculated 119 mg/dL (0-99); Triglycerides 83 mg/dL (<150)
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
[2019-02-22] MEDS ORDERED: predniSONE 2.5 MG TAB PO SCH (09:15)
[2019-02-22] MEDS ORDERED: REGADENOSON 0.4 MG/5 ML SYRINGE IV ONE (09:38)
[2019-02-22] MEDS: ASPIRIN 325 MG TAB PO SCH (10:34)
[2019-02-22] MEDS: HYDROCHLOROTHIAZIDE 12.5 MG CAP PO SCH (10:34)
[2019-02-22] MEDS: predniSONE 5 MG TAB PO SCH (10:34)
[2019-02-22] MEDS: PANTOPRAZOLE 40 MG TABLET PO SCH (10:40)
--- NOTE | 2019-02-22 12:55 | CONS ---
KEVIN Arrington is a 68-year-old lady with history of chronic lung disease, status post right upper lobectomy, who presented to hospital complaining of chest pain. She describes it as a precordial chest pressure mild to moderate intensity that came on at rest while she was driving her to physician's appointment. She has had 2 of these episodes, came to the ER and got admitted. The EKG shows sinus rhythm with right bundle branch block. The patient has had a stress test in the past, but that was several years ago. Since admission, she has remained chest pain free and had 3 sets of troponins that are all negative. PAST MEDICAL HISTORY: Negative for hypertension, diabetes, dyslipidemia, coronary artery disease or congestive heart failure. It is significant for appendectomy, cholecystectomy, hysterectomy, tonsillectomy, and lung disease along with GERD. FAMILY HISTORY: Family history is significant for coronary artery disease in her father. SOCIAL HISTORY: Negative for smoking, EtOH abuse, or drug abuse. MEDICATIONS: Medications include omeprazole, [place], HydroDIURIL, DuoNeb, and prednisone. ALLERGIES: The patient has multiple drug allergies including TRAMADOL, STRAWBERRY, PHENERGAN. REVIEW OF SYSTEMS: HEENT is unremarkable. CARDIAC: As described above. RESPIRATORY: As described above. GI: Negative GENITOURINARY: Negative. ALLERGY/IMMUNOLOGY: Negative. SKIN: Negative. MUSCULOSKELETAL: Negative. ENDOCRINE: Negative. HEMATOLOGICAL: Negative. DERM: Negative. CONSTITUTIONAL: Negative. ONCOLOGICAL: Negative. DISH MACHINE OPERATOR: Negative. Rest of the system review is not relevant. PHYSICAL EXAMINATION: On exam, comfortable at rest. Blood pressure is elevated at 153/80, respiratory rate is 18. There is no jugular venous distention. Carotid upstroke is normal. There is no bruit. Chest exam reveals good air entry bilaterally. Heart exam reveals first and second heart sounds. No gallop. Has a systolic murmur at the left lower sternal border. Abdomen is soft. Examination of extremities did not reveal any edema. Peripheral pulses are felt. LABS: Labs show that the hemoglobin is 14.7, platelet count is 367. Potassium is 4, creatinine is 0.76. Three sets of troponins are negative. LDL is 119. ASSESSMENT: Precordial chest pain. PLAN: Myocardial infarction is ruled out. I will obtain a 2D echo and schedule her for a stress test. MMODL / IJN: [id number] /
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
--- NOTE | 2019-02-22 15:04 | ECHOF ---
Referral Reason: MEASUREMENTS -------- HEIGHT: 152.4 cm WEIGHT: 95.3 kg BP: 153/80 RVIDd: 2.6 cm (< 3.3) IVSd: 1.1 cm (0.6 - 1.1) LVIDd: 4.0 cm (3.9 - 5.3) LVPWd: 0.8 cm (0.6 - 1.1) IVSs: 1.8 cm LVIDs: 2.9 cm LVPWs: 1.3 cm LA Diam: 3.2 cm (2.7 - 3.8) Ao Diam: 3.4 cm (2.0 - 3.7) AV Cusp: 1.9 cm (1.5 - 2.6) MV EXCURSION: 12.148 mm (> 18.000) MV EF SLOPE: 57 mm/s (70 - 150) EPSS: 0.4 cm MV E Ihsan: 1.02 m/s MV DecT: 254 ms MV A Ihsan: 1.35 m/s MV E/A Ratio: 0.76 RAP: 5.00 mmHg RVSP: 31.29 mmHg FINDINGS -------- Sinus rhythm. This was a technically adequate study. LV size, wall thickness and systolic function are normal, with an EF greater than 55%. There is nor mal global left ventricular contractility. The right ventricle is normal in size and function. The left atrium is normal in size. The right atrium is normal in size. Interatrial and interventricular septum intact. There is mild aortic valve sclerosis. Normal appearing mitral valve. The tricuspid valve appears structurally normal. Trace tricuspid regurgitation present. There is no evidence of pulmonary hypertension. The right ventricular systolic pressure, as measured by Dopp ler, is 31.29mmHg. Pulmonic valve appears structurally normal. The aortic root, ascending aorta and aortic arch are normal. The pericardium is normal. CONCLUSIONS -------- 1. Sinus rhythm. 2. This was a technically adequate study. 3. LV size, wall thickness and systolic function are normal, with an EF greater than 55%. 4. There is normal global left ventricular contractility. 5. The right ventricle is normal in size and function. 6. The left atrium is normal in size. 7. The right atrium is normal in size. 8. Interatrial and interventricular septum intact. 9. There is mild aortic valve sclerosis. 10. Normal appearing mitral valve. 11. The tricuspid valve appears structurally normal. 12. Trace tricuspid regurgitation present. 13. There is no evidence of pulmonary hypertension. 14. The right ventricular systolic pressure, as measured by Doppler, is 31.29mmHg. 15. Pulmonic valve appears structurally normal. 16. The aortic root, ascending aorta and aortic arch are normal. 17. The pericardium is normal. WARDROBE ASSISTANT: Lamonte Norman RDCS
[2019-02-22] MEDS: IPRATROPIUM-ALBUTEROL 3 ML NEB INHALATION PRN (19:41)
[2019-02-22] MEDS: HYDROcodone/APAP 10-325MG 1 EACH TAB PO SCH (20:16)
[2019-02-22] MEDS: PARoxetine 10 MG TAB PO SCH (20:17)
[2019-02-23] MEDS: NITROGLYCERIN OINT 1 INCH/GM PACKET TOPICAL SCH ×4 (06:00→20:26)
[2019-02-23] MEDS: HYDROcodone/APAP 10-325MG 1 EACH TAB PO SCH ×2 (07:30→20:25)
[2019-02-23] MEDS: ASPIRIN 325 MG TAB PO SCH (07:31)
[2019-02-23] MEDS: predniSONE 5 MG TAB PO SCH (07:31)
[2019-02-23] MEDS: PANTOPRAZOLE 40 MG TABLET PO SCH (07:31)
[2019-02-23] MEDS: HYDROCHLOROTHIAZIDE 12.5 MG CAP PO SCH (07:32)
--- NOTE | 2019-02-23 10:55 | P.PN ---
Subjective Progress Note Date: 02/23/19 This is a pleasant 68-year-old female who presented to the emergency room with an episode of near syncope and chest discomfort. The patient was driving her fianc to the hospital for a injection when she developed dizziness and lightheadedness while driving. Patient stated that the episode lasted about 5 minutes each. Patient has history of previous rib fractures and which he takes [place] daily for this. Patient states that over the last 2 months she has noticed increased dizziness and lightheadedness especially with transferring positions however she also has episodes while sitting down. The most recent episode while she was driving she did experience left-sided chest pain and fluttering of her heart. Patient denies any syncope. Patient is also complaining of right shoulder pain specifically to the bicep. Patient states that she states it is uncomfortable for her to raise her arm she has limited range of motion with that patient denies any injury to the arm. Patient has pas t medical history of IgG4 autoimmune disease where she was routinely taking prednisone 10 mg for the last 3 years. Due to increased weight gain and some shortness of breath her prednisone was decreased to 5 mg about 2 months ago. She states that her symptoms started around the same time. Patient has medical history also includes asthma after reflux, GI bleed, colitis, and elevated liver enzymes. CTA shows no pulmonary embolism, stable size of right lower lobe pulmonary nodules there is a new left lower pulmonary nodule measuring 1.7 cm's in maximal dimension.PET/ CT recommended. Hepatic steatosis. Small hiatal hernia 02/24: Patient is resting comfortable sitting up in bed. Patient states that she is feeling much better dizziness has decreased and she is no longer having any chest discomfort. Echocardiogram shows EF greater than 55%, normal global left ventricle contractibility, trace tricuspid regurgitation. Patient is scheduled for a stress test tomorrow. Patient is hemodynamically stable and afebrile. Patient has been up in ambulating without any difficulties. Patient denies any dizziness lightheadedness with ambulation. Patient states that her shortness of breath has improved since yesterday. Review Of Systems: Constitutional: No fever, no chills, no night sweats. No weight change. No weakness, fatigue or lethargy. No daytime sleepiness. EENT: No headache. No blurred vision or double vision, no loss of vision. No loss of Hearing, no ringing in the ears, no dizziness. No nasal drainage or congestion. No epistaxis. No sore throat. Lungs: No shortness of breath, cough, no sputum production. No wheezing. Cardiovascular: No chest pain, no lower extremity edema. No palpitations. No paroxysmal nocturnal dyspnea. No orthopnea. No lightheadedness or dizziness. No syncopal episodes. Abdominal: no abdominal discomfort. No nausea, vomiting. no diarrhea. No constipation. No bloody or tarry stools. no loss of appetite. Genitourinary: No dysuria, increased frequency, urgency. No urinary retention. Musculoskeletal: No myalgias. No muscle weakness, no gait dysfunction, no frequent falls. No back pain. No neck pain. Integumentary: No wounds, no lesions. No rash or pruritus. No unusual bruising. No change in hair or nails. Neurologic: No aphasia. No facial droop. No change in mentation. No head injury. No headache. No paralysis. No paresthesia. Psychiatric: No depression. No anxiety. No mood swings. Endocrine: No abnormal blood sugars. No weight change. No excessive sweating or thirst. Objective - Vital Signs Vital signs: Vital Signs Temp 97.8 F 02/23/19 08:00 Pulse 63 02/23/19 08:00 Resp 16 02/23/19 08:00 BP 103/59 02/23/19 08:00 Pulse Ox 95 02/23/19 08:00 Intake & Output 02/22/19 02/23/19 02/23/19 18:59 06:59 18:59 Other: Voiding Method Toilet Toilet Toilet # Voids 2 1 - Exam General Appearance: Alert, cooperative, no distress, appears stated age. Neck HEENT: Supple, no lymphadenopathy, no thyroid enlargement, no carotid bruits. Lungs: Clear to auscultation without crackles or wheezes no rhonchi, no deformity. Chest Wall: Chest wall normal expansion with deep inspiration no tenderness and no deformity was found on exam, no costochondral pain or discomfort. Heart: Regular rate and rhythm, S1, S2 normal, no murmur, rub or gallop. Back: [place]-like syndrome additional Pads to upper back, Symmetric, no curvature, no CVA tenderness. Abdomen: pendulous abdomen Distended Soft, non-tender, no rebound or rigidity, no hepatosplenomegaly. Extremities: Right upper extremity decreased range of motion and pain with palpation no deformities noted. Extremities normal, atraumatic, no cyanosis or edema. Pulses: 2+ and symmetric. Skin: Skin color, texture, tugor normal, no rashes or lesions. Neurologic: Alert oriented x3 cranial nerves II through XII intact, no motor deficit, no abnormal balance or gait - Labs CBC & Chem 7: 02/21/19 19:06 02/21/19 19:06 Labs: Microbiology - Last 24 Hours (Table) 02/21/19 18:11 Urine Culture - Preliminary Urine,Voided Gram Neg Bacilli 02/21/19 22:10 Blood Culture - Preliminary Blood No Growth after 24 hours Assessment and Plan Plan: 1. Presyncope related to hypovolemia possible underlining adrenal insufficiency. Continue prednisone to 7.5 mg daily, continue hydralazine 12.5 mg daily. Consult cardiology appreciated. Cortisol level 2. Pulmonology consult appreciated. Patient is scheduled for a stress test tomorrow. 2. IgG 4 autoimmune lung disease. Continue DuoNeb CT results noted above. 3. GERD. Protonix 40 mg by mouth daily 4. Depression. Continue Paxil 10 mg at bedtime 5. Elevated liver enzymes. Repeat liver enzymes. 6. Previous rib fracture. Continue [place] 10 one twice a day 7. DVT prophylaxis. Heparin 5000 units subcu every 12 hours. 8. GI prophylaxis. Protonix 40 mg daily Impression and plan of care have been directed as dictated by the signing phys joana. Marlene Whitlock nurse practitioner acting as scribe for signing physician.
--- NOTE | 2019-02-23 14:56 | PN ---
PROGRESS NOTE Nury is a 68-year-old lady who is admitted to the hospital with chest pain and ruled out for myocardial infarction. This morning she is doing well and is free of symptoms. EXAM: Comfortable at rest. Vital signs are stable. Chest exam reveals good air entry bilaterally. Heart exam reveals first and second heart sounds. No gallop. No murmur. Abdomen is soft. Exam of extremities did not reveal any edema. Peripheral pulses are felt. ASSESSMENT: Precordial chest pain, rule out coronary artery disease. PLAN: Patient will undergo a stress test tomorrow. If this is abnormal, will have a cardiac catheterization. If not she will be discharged home. MMODL / IJN: [id number] /
[2019-02-23] MEDS: HEPARIN SODIUM,PORCINE 5,000 UNIT/ML 1 ML VIAL SQ SCH (20:22)
[2019-02-23] MEDS: PARoxetine 10 MG TAB PO SCH (20:25)
[2019-02-23] MEDS: IPRATROPIUM-ALBUTEROL 3 ML NEB INHALATION PRN (20:54)
[2019-02-24] MEDS: NITROGLYCERIN OINT 1 INCH/GM PACKET TOPICAL SCH (03:03)
[2019-02-24] MEDS ORDERED: DIPYRIDAMOLE IV ONE (06:00)
[2019-02-24] MEDS ORDERED: SODIUM CHLORIDE 0.9% IV ONE (06:00)
[2019-02-24] MEDS ORDERED: AMINOPHYLLINE 500 MG/20 ML VIAL IV PRN (06:00)
[2019-02-24] MEDS ORDERED: CAFFEINE CITRATE 60 MG/3 ML VIAL IV PRN (06:00)
[2019-02-24 07:52] LABS: Basophils # (A) 0.1 k/uL (0-0.2); Basophils % (A) 1 %; Eosinophils # (A) 0.3 k/uL (0-0.7); Eosinophils % (A) 3 %; HCT 40.5 % (34.0-46.0); HGB 13.2 gm/dL (11.4-16.0); Lymphocytes # (A) 2.5 k/uL (1.0-4.8); Lymphocytes % (A) 24 %; MCH 27.7 pg (25.0-35.0); MCHC 32.6 g/dL (31.0-37.0); Mean Platelet Volume 7.3; Monocytes # (A) 0.9 k/uL (0-1.0); Monocytes % (A) 9 %; Neutrophils # (A) 6.6 k/uL (1.3-7.7); Neutrophils % (A) 63 %; Platelet Count 306 k/uL (150-450); RBC 4.77 m/uL (3.80-5.40); RDW 15.5 % (11.5-15.5); WBC 10.5 k/uL (3.8-10.6)
[2019-02-24 08:22] VITALS: RESP 17
[2019-02-24 08:28] LABS: Calcium 9.1 mg/dL (8.4-10.2); Potassium 3.7 mmol/L (3.5-5.1)
[2019-02-24] MEDS ORDERED: ASPIRIN 81 MG PO SCH (09:00)
[2019-02-24 12:27] VITALS: BP 154/84; TEMP 97.8
[2019-02-24] MEDS: HYDROcodone/APAP 10-325MG 1 EACH TAB PO SCH (12:32)
[2019-02-24] MEDS: HEPARIN SODIUM,PORCINE 5,000 UNIT/ML 1 ML VIAL SQ SCH (12:32)
[2019-02-24] MEDS: PANTOPRAZOLE 40 MG TABLET PO SCH (12:33)
[2019-02-24] MEDS: HYDROCHLOROTHIAZIDE 12.5 MG CAP PO SCH (12:34)
[2019-02-24] MEDS: predniSONE 5 MG TAB PO SCH (12:34)
--- NOTE | 2019-02-24 12:55 | XR ---
EXAMINATION TYPE: XR chest 2V DATE OF EXAM: 02/24/2019 COMPARISON: Chest x-ray 02/21/2019 HISTORY: Shortness of breath and chest pain TECHNIQUE: Frontal and lateral views of the chest are obtained. FINDINGS: The patchy basilar density seen at the left lung base shows a similar appearance. Some min imal patchy density present along the medial aspect of the right upper lobe is stable with some assoc iated high attenuation. No evident pneumothorax. Heart size is likely stable. There are overlying car diac leads. IMPRESSION: Suspect some minimal subsegmental atelectatic change. Similar findings right upper lobe, question postop change.
--- NOTE | 2019-02-24 13:25 | P.DS ---
Providers Date of admission: 02/23/19 13:19 Expected date of discharge: 02/24/19 Attending physician: Rosa Marroquin Consults: 02/21/19 23:46 Consult Physician Urgent Consulting Provider: [facility] Consult Reason/Comments: chest pain, near syncope Do you want consulting provider notified?: Yes, Notify in am Primary care physician: [facility] Course: This is a pleasant 68-year-old female who presented to the emergency room with an episode of near syncope and chest discomfort. The patient was driving her fianc to the hospital for a injection when she developed dizziness and lightheadedness while driving. Patient stated that the episode lasted about 5 minutes each. Patient has history of previous rib fractures and which he takes [place] daily for this. Patient states that over the last 2 months she has noticed increased dizziness and lightheadedness especially with transferring positions however she also has episodes while sitting down. The most recent episode while she was driving she did experience left-sided chest pain and fluttering of her heart. Patient denies any syncope. Patient is also complaining of right shoulder pain specifically to the bicep. Patient states that she states it is uncomfortable for her to raise her arm she has limited range of motion with that patient denies any injury to the arm. Patient has past medical history of IgG4 autoimmune disease where she was routinely taking prednisone 10 mg for the last 3 years. Due to increased weight gain and some shortness of breath her prednisone was decreased to 5 mg about 2 months ago. She states that her symptoms started around the same time. Patient has medical history also includes asthma after reflux, GI bleed, colitis, and elevated liver enzymes. CTA shows no pulmonary embolism, stable size of right lower lobe pulmonary nodules there is a new left lower pulmonary nodule measuring 1.7 cm's in maximal dimension.PET/ CT recommended. Hepatic steatosis. Small hiatal hernia 02/23: Patient is resting comfortable sitting up in bed. Patient states that she is feeling much better dizziness has decreased and she is no longer having any chest discomfort. Echocardiogram shows EF greater than 55%, normal global left ventricle contractibility, trace tricuspid regurgitation. Patient is scheduled for a stress test tomorrow. Patient is hemodynamically stable and afebrile. Patient has been up in ambulating without any difficulties. Patient denies any dizziness lightheadedness with ambulation. Patient states that her shortness of breath has improved since yesterday. 02/24: patient was unable to lie flat for the stress test and this was terminated. Cardiology recommended follow-up in the outpatient setting and then a stress test will be ordered. Chest x-ray showed minimal subsegmental atelectatic change.the patient will be discharged home today in stable condition. She will be placed on prednisone 7.5 mg per home. Discharge diagnoses: 1. Presyncope related to hypovolemia possible underlining adrenal insufficiency from prednisone taper. 2. IgG 4 autoimmune lung disease. 3. GERD. 4. Recurrent depression. 5. Elevated liver enzymes. 6. Previous rib fracture. Discharge plan: Home Impression and plan of care have been directed as dictated by the signing physician. Leta Stanley nurse practitioner acting as scribe for signing physician. Patient Condition at Discharge: Good Plan - Discharge Summary New Discharge Prescriptions: Continue PARoxetine HCL [Paroxetine HCl] 10 mg PO HS Omeprazole 20 mg PO DAILY HYDROcodone/APAP 10-325MG [[place] 10-325] 1 tab PO BID Hydrochlorothiazide [Hydrodiuril] 12.5 mg PO DAILY Ipratropium-Albuterol Nebulize [Duoneb 0.5 mg-3 mg/3 ml Soln] 3 ml INHALATION RT-TID PRN PRN Reason: Shortness Of Breath Changed predniSONE 7.5 mg PO DAILY #0 Discharge Medication List Omeprazole 20 mg PO DAILY 08/19/15 [History] PARoxetine HCL [Paroxetine HCl] 10 mg PO HS 08/19/15 [History] HYDROcodone/APAP 10-325MG [[place] 10-325] 1 tab PO BID 01/25/17 [History] Hydrochlorothiazide [Hydrodiuril] 12.5 mg PO DAILY 02/21/19 [History] Ipratropium-Albuterol Nebulize [Duoneb 0.5 mg-3 mg/3 ml Soln] 3 ml INHALATION RT-TID PRN 02/21/19 [History] predniSONE 7.5 mg PO DAILY #0 02/24/19 [Rx] Follow up Appointment(s)/Referral(s): Shiv Wagoner MD [Primary Care Provider] - 1 Week [facility] [Provider Group] - 1 Week Discharge Disposition: HOME SELF-CARE
[2019-02-24] MEDS: IPRATROPIUM-ALBUTEROL 3 ML NEB INHALATION PRN (13:39)
--- NOTE | 2019-02-24 13:46 | P.PN ---
Subjective This is a pleasant 68-year-old female past medical history significant for IgG-4 lung disease s/p RUL lobectomy, hypertension and GERD. She was seen and evaluated by Dr. Gonsalez over the weekend. She was scheduled for a Lexiscan stress test this morning. Unfortunately, she was unable to lay flat during her exam. She was only able to tolerate the rest images for about 90 seconds and the test was aborted. Chest xray obtained revealed minimal atelectasis, proBNP 222. Echocardiogram revealed preserved LV systolic function with EF 55%. GENERAL: Well-appearing, well-nourished and in no acute distress. NECK: Supple without JVD or thyromegaly. LUNGS: Breath sounds clear to auscultation bilaterally. Respiration equal and unlabored. No wheezes, rales or rhonchi. HEART: Regular rate and rhythm without murmurs, rubs or gallops. S1 and S2 heard. EXTREMITIES: Normal range of motion, trace bilateral lower extremity nonpitting edema. No clubbing or cyanosis. Peripheral pulses intact. ASSESSMENT Chest pain, an acute coronary event has been ruled out. Presyncope, secondary to hypovolemia Status post lobectomy IgG 4 autoimmune lung disease Leukocytosis on chronic oral steroids PLAN No evidence to suggest heart failure. Pt has been chest pain free since admission. May be discharged home and follow up with Dr. Gonsalez in the office for outpatient stress test when she is feeling better from a respiratory perspective. Nurse Practitioner note has been reviewed, I agree with a documented findings and plan of care. Patient was seen and examined. Objective - Vital Signs Vital signs: Vital Signs Temp 98.1 F 02/24/19 08:00 Pulse 69 02/24/19 08:00 Resp 17 02/24/19 08:00 BP 122/74 02/24/19 08:00 Pulse Ox 97 02/24/19 08:00 Intake & Output 02/23/19 02/24/19 02/24/19 18:59 06:59 18:59 Other: Voiding Method Toilet Toilet # Voids 3 2 - Labs CBC & Chem 7: 02/24/19 07:27 02/24/19 07:27 Labs: Microbiology - Last 24 Hours (Table) 02/21/19 22:10 Blood Culture - Preliminary Blood No Growth after 48 hours 02/21/19 18:11 Urine Culture - Final Urine,Voided Escherichia coli
[2019-02-24 13:49] VITALS: PULSE 74
== END 2019-02-24 15:24 | disposition home or self-care (01) | DRG 644 ==
LOC: EC 15:58 → 1SOBS 23:50 → OBSVTOIN 02-23 13:19
PROVIDERS: ADMIT Internal Medicine; ATTEND Internal Medicine
DX: E27.49 Other adrenocortical insufficiency (principal); F33.9 Major depressive disorder, recurrent, unspecified; J98.11 Atelectasis; D80.3 Selective deficiency of immunoglobulin G [IgG] subclasses; E86.1 Hypovolemia; I10 Essential (primary) hypertension; I45.10 Unspecified right bundle-branch block; J45.40 Moderate persistent asthma, uncomplicated; K21.9 Gastro-esophageal reflux disease without esophagitis; K44.9 Diaphragmatic hernia without obstruction or gangrene; K76.0 Fatty (change of) liver, not elsewhere classified; Z79.52 Long term (current) use of systemic steroids; Z79.899 Other long term (current) drug therapy; Z82.49 Family history of ischemic heart disease and other diseases of the circulatory system; Z87.891 Personal history of nicotine dependence; Z90.2 Acquired absence of lung [part of]; Z90.710 Acquired absence of both cervix and uterus; M25.511 Pain in right shoulder; R91.1 Solitary pulmonary nodule; Z79.891 Long term (current) use of opiate analgesic; Z87.19 Personal history of other diseases of the digestive system; S22.41XD Multiple fractures of ribs, right side, subsequent encounter for fracture with routine healing
CPT/HCPCS: 36415; 71046; 71275; 80048; 80053; 80061; 81001; 82533; 82550; 83605; 83735; 83880; 84484; 85025; 85610; 85730; 87040; 87077; 87086; 87186; 93005; 93306; 94640; 96374; 99285

== ENCOUNTER → 2019-03-31 | Outpatient (CLI) | payer MEDICARE ==
[2019-03-31 18:33] LABS: Albumin/Globulin Ratio 2.35 (1.60-3.17); Bilirubin, Conjugated 0.2 mg/dL (0.20-0.40); Bilirubin,Unconjugated 0.5 mg/dL; Globulin 1.7 g/dL (1.6-3.3); Total Bilirubin 0.7 mg/dL (0.2-1.2); Total Protein 5.7 g/dL (6.2-8.2)
== END | disposition home or self-care (01) ==
LOC: LABWHC1 13:30
DX: K76.0 Fatty (change of) liver, not elsewhere classified (principal)
CPT/HCPCS: 36415; 80076

== ENCOUNTER → 2019-05-14 | Outpatient (CLI) | payer MEDICARE ==
[2019-05-14 13:06] LABS: Basophils % (A) 0 %; Eosinophils # (A) 0.1 k/uL (0-0.7); Eosinophils % (A) 1 %; HCT 43.8 % (34.0-46.0); Lymphocytes # (A) 1.1 k/uL (1.0-4.8); Lymphocytes % (A) 7 %; MCH 27.5 pg (25.0-35.0); MCHC 32.1 g/dL (31.0-37.0); MCV 85.8 fL (80.0-100.0); Mean Platelet Volume 6.9; Monocytes # (A) 0.8 k/uL (0-1.0); Monocytes % (A) 5 %; Neutrophils # (A) 13.6 k/uL (1.3-7.7); Neutrophils % (A) 86 %; Platelet Count 370 k/uL (150-450); RDW 14.2 % (11.5-15.5); WBC 15.8 k/uL (3.8-10.6)
[2019-05-14 20:04] LABS: African American GFR (CKD) 86.6 (60.0-200.0); Albumin 4.2 g/dL (3.80-4.90); Albumin/Globulin Ratio 2.33 (1.60-3.17); BUN/Creat Ratio 16.25 Ratio (12.00-20.00); Calcium 9.6 mg/dL (8.7-10.3); Globulin 1.8 g/dL (1.6-3.3); Non-African American GFR(CKD) 74.7 (60.0-200.0); Potassium 3.9 mmol/L (3.5-5.5); Total Bilirubin 0.7 mg/dL (0.2-1.2)
== END | disposition home or self-care (01) ==
LOC: LABWHC1 12:03
PROVIDERS: ATTEND Internal Medicine Critical Care Medicine
DX: M35.8 Other specified systemic involvement of connective tissue (principal)
CPT/HCPCS: 36415; 80053; 85025

== ENCOUNTER → 2019-05-21 | Outpatient (CLI) | payer MEDICARE ==
--- NOTE | 2019-05-23 11:13 | MM ---
Reason for exam: screening (asymptomatic). Last mammogram was performed 1 year and 11 months ago. History: Patient is postmenopausal. Physical Findings: A clinical breast exam by your physician is recommended on an annual basis and results should be correlated with mammographic findings. MG 3D Screening Mammo W/Cad Bilateral CC and MLO view(s) were taken. Prior study comparison: June 28, 2017, bilateral MG 3d screening mammo w/cad. May 13, 2014, bilateral MG screening mammo w CAD. The breast tissue is almost entirely fat. No significant changes when compared with prior studies. ASSESSMENT: Negative, BI-RAD 1 RECOMMENDATION: Routine screening mammogram of both breasts in 1 year.
== END | disposition home or self-care (01) ==
LOC: RADMAMWWP 15:31
PROVIDERS: ATTEND Family Medicine
DX: Z12.31 Encounter for screening mammogram for malignant neoplasm of breast (principal)
CPT/HCPCS: 77063; 77067

== ENCOUNTER → 2019-07-25 | Outpatient (CLI) | payer MEDICARE ==
[2019-07-25 10:38] LABS: HCT 44.3 % (34.0-46.0); HGB 14.2 gm/dL (11.4-16.0); INR 0.9 (<1.2); MCV 87.3 fL (80.0-100.0); Mean Platelet Volume 7.5; Platelet Count 339 k/uL (150-450); Prothrombin Time 9.8 sec (9.0-12.0); RBC 5.07 m/uL (3.80-5.40); WBC 12.7 k/uL (3.8-10.6)
[2019-07-25 17:00] LABS: Albumin 4.1 g/dL (3.80-4.90); Albumin/Globulin Ratio 2.56 (1.60-3.17); Bilirubin, Conjugated 0.2 mg/dL (0.20-0.40); Bilirubin,Unconjugated 0.5 mg/dL; Globulin 1.6 g/dL (1.6-3.3); Total Bilirubin 0.7 mg/dL (0.3-1.2); Total Protein 5.7 g/dL (6.2-8.2)
[2019-07-25 18:13] LABS: Hepatitis A Antibody IgM Non-Reactive (Non-Reactive); Hepatitis B Core IgM Non-Reactive (Non-Reactive); Hepatitis B Surface Antigen Non-Reactive (Non-Reactive); Hepatitis C IgG Antibody Non-Reactive (Non-Reactive)
== END | disposition home or self-care (01) ==
LOC: LABWHC1 09:24
PROVIDERS: ATTEND Physician Assistant
DX: R94.5 Abnormal results of liver function studies (principal); Z51.81 Encounter for therapeutic drug level monitoring
CPT/HCPCS: 36415; 80074; 80076; 85027; 85610

== ENCOUNTER → 2019-11-19 | Outpatient (CLI) | payer MEDICARE ==
[2019-11-19 10:12] LABS: African American GFR (CKD) >90 (>60 ml/min/1.73 sqM); Blood Urea Nitrogen 12 mg/dL (7-17); Non-African American GFR(CKD) 89 (>60 ml/min/1.73 sqM)
--- NOTE | 2019-11-19 11:37 | CT ---
EXAMINATION TYPE: CT chest w con DATE OF EXAM: 11/19/2019 COMPARISON: 02/21/2019 HISTORY: Lung nodules CT DLP: 613.80 mGycm, Automated exposure control for dose reduction was used. CONTRAST: Performed injected with 100 ml mL of Isovue 300. TECHNIQUE: Axial images were obtained at 5 mm thick sections. Reconstructed images are reviewed on [employer] computer in the coronal plane. FINDINGS: Portion of the thyroid visualized is normal. There is streak opacity at the left lung base with a maximum depth of 1.4 cm. Series 4 image 35. This has become more conspicuous although smaller in size over the interval. Atelectasis could be conside red. Underlying neoplasm is not excluded. Some mild streak atelectasis is likely within the right larry g base near the major fissure. There is thickening in the right suprahilar region. This has irregular borders. This measures approxi mately 1.7 x 3.3 cm and was present previously. This has enlarged over the interval. Neoplastic proce sses should be considered. A 0.9 cm paratracheal lymph node is in the superior mediastinum. Series 3 image 9. Small pretracheal lymph nodes are present. Small subcarinal lymph node may be present. Appears be right hilar lymph nod e, transverse dimension of 1.0 cm which is mildly enlarged by CT criteria. Series 3 image 25. Ascending aorta diameter at the level of the main pulmonary artery is 3.1 cm. The main pulmonary art breonna diameter at the bifurcation is 2.[address] sections are obtained through the upper abdomen. Abdomen is essentially unremarkable. Note is made of a small hiatal hernia. IMPRESSIONS: 1. Right suprahilar irregular mass increasing in size from the comparison study suspicious for neopla stic process. Additional workup with PET CT is recommended. 2. There is a borderline enlarged right hilar lymph node present with additional smaller lymph nodes discussed above.
== END | disposition home or self-care (01) ==
LOC: RADCTMAIN 09:08
PROVIDERS: ATTEND Internal Medicine Critical Care Medicine
DX: R59.9 Enlarged lymph nodes, unspecified (principal); Z88.8 Allergy status to other drugs, medicaments and biological substances
CPT/HCPCS: 82565; 84520; 71260; 36415; Q9967

== ENCOUNTER 2019-12-27 17:18 | Observation (INO) | payer MEDICARE ==
[2019-12-27] MEDS ORDERED: SODIUM CHLORIDE 0.9% 1,000 ML IV STA (17:59)
[2019-12-27 18:15] LABS: Basophils % (A) 0 %; Eosinophils # (A) 0.1 k/uL (0-0.7); Eosinophils % (A) 1 %; HGB 13.8 gm/dL (11.4-16.0); Lymphocytes % (A) 8 %; MCH 27.1 pg (25.0-35.0); MCHC 31.4 g/dL (31.0-37.0); MCV 86.5 fL (80.0-100.0); Mean Platelet Volume 7.7; Monocytes # (A) 0.7 k/uL (0-1.0); Monocytes % (A) 5 %; Neutrophils # (A) 10.7 k/uL (1.3-7.7); Neutrophils % (A) 84 %; Platelet Count 343 k/uL (150-450); RBC 5.08 m/uL (3.80-5.40); RDW 14.1 % (11.5-15.5); WBC 12.7 k/uL (3.8-10.6)
[2019-12-27 18:29] LABS: ALT 49 U/L (4-34); AST 48 U/L (14-36); African American GFR (CKD) >90 (>60 ml/min/1.73 sqM); Alkaline Phosphatase 74 U/L (38-126); Anion Gap 9 mmol/L; Blood Urea Nitrogen 11 mg/dL (7-17); Calcium 9.4 mg/dL (8.4-10.2); Carbon Dioxide 27 mmol/L (22-30); Chloride 101 mmol/L (98-107); Glucose 147 mg/dL (74-99); Non-African American GFR(CKD) >90 (>60 ml/min/1.73 sqM); Potassium 3.5 mmol/L (3.5-5.1); Sodium 137 mmol/L (137-145); Total Bilirubin 0.6 mg/dL (0.2-1.3); Total Protein 6.5 g/dL (6.3-8.2)
[2019-12-27 18:37] LABS: INR 0.9 (<1.2)
[2019-12-27 18:38] LABS: Partial Thromboplastin Time 21.6 sec (22.0-30.0); Prothrombin Time 9.4 sec (9.0-12.0)
[2019-12-27 18:59] LABS: D-Dimer 0.76 mg/L FEU (<0.60)
--- NOTE | 2019-12-27 19:50 | XR ---
EXAMINATION TYPE: XR chest 2V DATE OF EXAM: 12/27/2019 COMPARISON: Chest radiograph 02/24/2019 HISTORY: Difficulty breathing. History of removal of tumors of right lung TECHNIQUE: Frontal and lateral views of the chest are obtained. FINDINGS: Right upper lung postsurgical change. There is no focal air space opacity, pleural effusio n, or pneumothorax seen. Tiny linear atelectasis of the right lung base. The cardiac silhouette size is within normal limits. The osseous structures are intact. IMPRESSION: No acute pulmonary process.
--- NOTE | 2019-12-27 21:41 | CT ---
EXAMINATION TYPE: CT chest angio for PE DATE OF EXAM: 12/27/2019 COMPARISON: CT chest 11/19/2019 HISTORY: Elevated d-dimer, SOB CT DLP: 618.6 mGycm Automated exposure control for dose reduction was used. CONTRAST: CT Chest for pulmonary embolism performed with with IV Contrast, patient injected with 100 mL of Isov ue 300. FINDINGS: LUNGS: Redemonstrated 3.2 x 1.7 cm opacity of the right upper lobe, unchanged from 11/19/2019 comparis on. Right lower lobe bibasilar atelectasis left lower lobe 1.4 cm linear opacity appears unchanged ve rsus 11/19/2019, and may represent atelectasis versus scar. There is no pleural effusion or pneumothor ax seen. The tracheobronchial tree is patent. MEDIASTINUM: There is satisfactory enhancement of the pulmonary artery and its branches, there is no CT evidence for pulmonary embolism. Thoracic aorta is normal in size with no evidence of dissection. There is an unchanged 1.0 cm right paratracheal lymph node of the superior mediastinum (401:24). 0.9 cm right hilar lymph node unchanged (401:63). Cardiac size is normal. Calcified coronary artery disea se. No pericardial effusion is seen. OTHER: Fatty liver. IMPRESSION: 1. No evidence of pulmonary embolism or thoracic aortic aneurysm. 2. Unchanged 3.2 x 1.7 cm right upper lobe lung mass, which may represent neoplastic process. Promin ent borderline enlarged right paratracheal and right hilar lymph nodes also unchanged versus [address] comparison. 3. Fatty liver.
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
[2019-12-27] MEDS ORDERED: HYDROcodone/APAP 10-325MG 1 EACH TAB PO ONE (22:36)
[2019-12-27] MEDS ORDERED: NITROGLYCERIN SL TABS 0.4 MG TAB SUBLINGUAL PRN (22:49)
[2019-12-28 04:13] LABS: Cholesterol 162 mg/dL (<200); HDL Cholesterol 44 mg/dL (40-60); LDL Cholesterol,Calculated 97 mg/dL (0-99); Triglycerides 104 mg/dL (<150)
[2019-12-28] MEDS ORDERED: FUROSEMIDE 10 MG/ML 4 ML VIAL IV STA (08:31)
[2019-12-28 08:35] VITALS: RESP 20; TEMP 98
[2019-12-28] MEDS ORDERED: HYDROcodone/APAP 10-325MG 1 EACH TAB PO PRN (08:37)
[2019-12-28] MEDS ORDERED: ACETAMINOPHEN TAB 500 MG TAB PO PRN (08:38)
[2019-12-28] MEDS ORDERED: PANTOPRAZOLE 40 MG TABLET PO SCH (09:00)
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
[2019-12-28] MEDS: POTASSIUM BICARBONATE/CIT AC 20 MEQ TABLET.EFF PO SCH ×2 (10:32→11:45)
[2019-12-28 10:40] VITALS: BP 138/81
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
[2019-12-28] MEDS ORDERED: predniSONE 20 MG TAB PO SCH (11:45)
[2019-12-28 12:19] VITALS: PULSE 84
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
[2019-12-28] MEDS ORDERED: HYDROcodone/APAP 10-325MG 1 EACH TAB PO SCH (16:00)
[2019-12-28] MEDS ORDERED: PARoxetine 10 MG TAB PO SCH (21:00)
== END 2019-12-28 15:57 | disposition home or self-care (01) ==
LOC: EC 17:18 → 3NCARDOBS 23:04
PROVIDERS: ADMIT Internal Medicine; ATTEND Internal Medicine
DX: R07.89 Other chest pain (principal); R07.81 Pleurodynia; J98.11 Atelectasis; R60.0 Localized edema; J45.20 Mild intermittent asthma, uncomplicated; K21.9 Gastro-esophageal reflux disease without esophagitis; M19.011 Primary osteoarthritis, right shoulder; J98.4 Other disorders of lung; D89.89 Other specified disorders involving the immune mechanism, not elsewhere classified; F33.9 Major depressive disorder, recurrent, unspecified; R42 Dizziness and giddiness; R32 Unspecified urinary incontinence; F41.9 Anxiety disorder, unspecified; I45.19 Other right bundle-branch block; R94.31 Abnormal electrocardiogram [ECG] [EKG]; R79.1 Abnormal coagulation profile; R20.0 Anesthesia of skin; I49.1 Atrial premature depolarization; R91.8 Other nonspecific abnormal finding of lung field; K76.0 Fatty (change of) liver, not elsewhere classified; R16.0 Hepatomegaly, not elsewhere classified; R10.11 Right upper quadrant pain; E66.9 Obesity, unspecified; I10 Essential (primary) hypertension; Z68.41 Body mass index [BMI] 40.0-44.9, adult; Z90.2 Acquired absence of lung [part of]; Z79.899 Other long term (current) drug therapy; Z79.891 Long term (current) use of opiate analgesic; Z79.52 Long term (current) use of systemic steroids; Z88.6 Allergy status to analgesic agent; Z91.018 Allergy to other foods; Z88.8 Allergy status to other drugs, medicaments and biological substances; Z88.5 Allergy status to narcotic agent; Z87.19 Personal history of other diseases of the digestive system; Z86.39 Personal history of other endocrine, nutritional and metabolic disease; Z87.81 Personal history of (healed) traumatic fracture; Z90.89 Acquired absence of other organs; Z90.49 Acquired absence of other specified parts of digestive tract; Z90.710 Acquired absence of both cervix and uterus; Z98.890 Other specified postprocedural states; Z91.89 Other specified personal risk factors, not elsewhere classified; Z80.51 Family history of malignant neoplasm of kidney; Z82.49 Family history of ischemic heart disease and other diseases of the circulatory system; Z84.1 Family history of disorders of kidney and ureter; Z82.0 Family history of epilepsy and other diseases of the nervous system
CPT/HCPCS: 93005 ×2; 96361; 96374; 99285; 36415; 85379; 80061; 80053; 84484 ×2; 85025; 85610; 85730; 82272; 71046; 71275; G0378 ×2; J1940; J7512; Q9967

== ENCOUNTER → 2020-01-26 | Outpatient (CLI) | payer MEDICARE ==
[2020-01-26 14:41] LABS: HCT 43.5 % (34.0-46.0); HGB 13.4 gm/dL (11.4-16.0); MCH 26.9 pg (25.0-35.0); MCHC 30.7 g/dL (31.0-37.0); MCV 87.5 fL (80.0-100.0); Mean Platelet Volume 7.4; Platelet Count 355 k/uL (150-450); RBC 4.97 m/uL (3.80-5.40); RDW 14.1 % (11.5-15.5); WBC 14.8 k/uL (3.8-10.6)
[2020-01-26 23:53] LABS: Albumin 4.1 g/dL (3.80-4.90); Albumin/Globulin Ratio 2.16 (1.60-3.17); Bilirubin, Conjugated 0.2 mg/dL (0.20-0.40); Bilirubin,Unconjugated 0.5 mg/dL; Globulin 1.9 g/dL (1.6-3.3); Total Bilirubin 0.7 mg/dL (0.3-1.2)
[2020-01-27 00:49] LABS: INR <0.90 (0.90-1.11); Prothrombin Time <9.9 sec (9.9-11.9)
== END | disposition home or self-care (01) ==
LOC: LABWHC1 12:52
PROVIDERS: ATTEND Physician Assistant
DX: R94.5 Abnormal results of liver function studies (principal)
CPT/HCPCS: 36415; 80076; 85027; 85610

== ENCOUNTER → 2020-06-14 | Outpatient (CLI) | payer MEDICARE ==
--- NOTE | 2020-06-16 14:30 | MM ---
Reason for exam: screening (asymptomatic). Last mammogram was performed 1 year and 1 month ago. History: Patient is postmenopausal. Physical Findings: A clinical breast exam by your physician is recommended on an annual basis and results should be correlated with mammographic findings. MG 3D Screening Mammo W/Cad Bilateral CC and MLO view(s) were taken. Prior study comparison: May 21, 2019, bilateral MG 3d screening mammo w/cad. June 28, 2017, bilateral MG 3d screening mammo w/cad. There are scattered fibroglandular densities. No significant changes when compared with prior studies. ASSESSMENT: Negative, BI-RAD 1 RECOMMENDATION: Routine screening mammogram of both breasts in 1 year.
== END | disposition home or self-care (01) ==
LOC: RADMAMWWP 10:33
PROVIDERS: ATTEND Family Medicine
DX: Z12.31 Encounter for screening mammogram for malignant neoplasm of breast (principal)
CPT/HCPCS: 77063; 77067

== ENCOUNTER → 2020-07-15 | Outpatient (CLI) | payer MEDICARE ==
[2020-07-15 15:20] LABS: HCT 43.1 % (37.2-46.3); HGB 13.3 g/dL (12.0-15.0); MCH 26.6 pg (27.0-32.0); MCHC 30.9 g/dL (32.0-37.0); MCV 86.2 fL (80.0-97.0); Mean Platelet Volume 10.3 fL (9.5-12.2); Platelet Count 406 X 10*3/uL (140-440); RDW 14.7 % (11.5-14.5); WBC 12.62 X 10*3/uL (4.50-10.00)
[2020-07-15 17:36] LABS: INR 0.94 (0.90-1.11); Prothrombin Time 10.3 sec (9.9-11.9)
[2020-07-15 19:23] LABS: Albumin 4.3 g/dL (3.80-4.90); Albumin/Globulin Ratio 2.39 (1.60-3.17); Bilirubin, Conjugated 0.3 mg/dL (0.20-0.40); Bilirubin,Unconjugated 0.4 mg/dL; Globulin 1.8 g/dL (1.6-3.3); Total Bilirubin 0.7 mg/dL (0.2-1.2); Total Protein 6.1 g/dL (6.2-8.2)
== END | disposition home or self-care (01) ==
LOC: LABWHC1 10:23
PROVIDERS: ATTEND Physician Assistant
DX: R94.5 Abnormal results of liver function studies (principal)
CPT/HCPCS: 36415; 80076; 85027; 85610

== ENCOUNTER → 2021-02-23 | Outpatient (CLI) | payer MEDICARE ==
[2021-02-23 12:08] LABS: African American GFR (CKD) >90 (>60 ml/min/1.73 sqM); Blood Urea Nitrogen 21 mg/dL (7-17); Non-African American GFR(CKD) >90 (>60 ml/min/1.73 sqM)
--- NOTE | 2021-02-23 13:33 | CT ---
EXAMINATION TYPE: CT chest w con DATE OF EXAM: 02/23/2021 COMPARISON: 12/17/2019 HISTORY: Lung nodule. CT DLP: 608 mGycm Automated exposure control for dose reduction was used. TECHNIQUE: CT scan of the chest is performed with IV Contrast, patient injected with 100 mL of Isovue M300. MIP Images are created on CT scanner and reviewed. 3D reconstructed images are created on an independent workstation and reviewed. FINDINGS: LUNGS: Redemonstrated 3.2 x 1.0 cm mass or masslike density within the right upper lobe, unchanged f rom 86 exam. Left lower lobe bibasilar atelectasis left lower lobe 1.4 cm linear opacity appears unch anged versus prior exam, and may represent atelectasis versus scar. There is no pleural effusion or p neumothorax seen. The tracheobronchial tree is patent digital subsegmental consolidation in the right lung also stable lung the medial margin of the right lower lobe there is a nodular density measuring 6 mm not seen with certainty on the prior exam. Additionally within the left lower lobe there is a n odular density not seen on the prior exam measuring 1 cm questionable spiculation. Subsegmental densi ties at the right lung base along the diaphragm or more likely related atelectasis MEDIASTINUM: There are no greater than 1 cm hilar or mediastinal lymph nodes. No pericardial effusi on is seen. Thoracic aorta is normal in size with no evidence of dissection. There is an unchanged 1 .0 cm right paratracheal lymph node of the superior mediastinum . 0.9 cm right hilar lymph node uncha nged. Cardiac size is normal. Calcified coronary artery disease. No pericardial effusion is seen. OTHER: Low-attenuation liver is nonspecific but most typical of hepatic steatosis. Postcholecystecto my changes noted. Small hiatal hernia. Chronic rib deformities suggest remote trauma. Hypertrophic an d degenerative changes of the vertebral column. IMPRESSION: 1. Right paratracheal soft tissue mass now measures 3.2 x 1.0 cm and previously measured 3.2 x 1.7 cm . However, there is is a new nodule involving both lung bases the largest noted on the left measuring 1 cm. Recommend follow-up PET scan for this new nodule. 2. Hepatic steatosis.
== END | disposition home or self-care (01) ==
LOC: RADCTMAIN 11:14
PROVIDERS: ATTEND Internal Medicine Critical Care Medicine
DX: R91.8 Other nonspecific abnormal finding of lung field (principal)
CPT/HCPCS: 82565; 84520; 71260; 36415; Q9967

== ENCOUNTER → 2021-03-15 | Outpatient (CLI) | payer MEDICARE ==
[2021-03-15 11:31] LABS: HGB 13.4 g/dL (12.0-15.0); MCHC 31.9 g/dL (32.0-37.0); MCV 84.7 fL (80.0-97.0); Mean Platelet Volume 11.2 fL (9.5-12.2); Platelet Count 141 X 10*3/uL (140-440); RBC 4.96 X 10*6/uL (4.10-5.20); RDW 15.3 % (11.5-14.5); WBC 12.08 X 10*3/uL (4.50-10.00)
[2021-03-15 11:44] LABS: INR 0.93 (0.90-1.11); Prothrombin Time 10.2 sec (9.9-11.9)
[2021-03-15 16:41] LABS: ALT 37 U/L (8-44); AST 24 U/L (13-35); Albumin 3.7 g/dL (3.8-4.9); Albumin/Globulin Ratio 1.74 (1.60-3.17); Alkaline Phosphatase 83 U/L (41-126); Bilirubin, Conjugated <0.20 mg/dL (0.20-0.40); Globulin 2.1 g/dL (1.6-3.3); Total Protein 5.9 g/dL (6.2-8.2)
== END | disposition home or self-care (01) ==
LOC: LABWHC1 08:11
PROVIDERS: ATTEND Physician Assistant
DX: R94.5 Abnormal results of liver function studies (principal)
CPT/HCPCS: 36415; 80076; 85027; 85610

== ENCOUNTER → 2022-05-02 | Outpatient (CLI) | payer MEDICARE ==
--- NOTE | 2022-05-03 09:25 | MM ---
Reason for Exam: Screening (asymptomatic). Last mammogram was performed 1 year(s) and 10 month(s) ago. Patient History: Menarche at age 10. First Full-Term at age 20. Left ovary removed at age 22. Hysterectomy at age 22. Postmenopausal. Risk Values: Wanda 5 year model risk: 1.7%. NCI Lifetime model risk: 4.5%. Prior Study Comparison: 06/28/2017 Bilateral Screening Mammogram, [facility]. 05/21/2019 Bilateral Screening Mammogram, [facility]. 06/14/2020 Bilateral Screening Mammogram, [facility]. Tissue Density: The breast tissue is almost entirely fat. Findings: Analyzed By CAD. There is no suspicious group of microcalcifications or new suspicious mass in either breast. Overall Assessment: Negative, BI-RAD 1 Management: Screening Mammogram of both breasts in 1 year. A clinical breast exam by your physician is recommended on an annual basis and results should be correlated with mammographic findings. [facility] will attempt to contact patient to return for supplemental views and ultrasound if indicated. Electronically signed and approved by: Enmanuel Bhat DO
== END | disposition home or self-care (01) ==
LOC: RADMAMWWP 14:28
PROVIDERS: ATTEND Family Medicine
DX: Z12.31 Encounter for screening mammogram for malignant neoplasm of breast (principal); Z78.0 Asymptomatic menopausal state; Z90.721 Acquired absence of ovaries, unilateral
CPT/HCPCS: 77063; 77067

== ENCOUNTER 2023-01-12 14:28 | Inpatient (IN) | payer MEDICARE, OTHER ==
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
--- NOTE | 2023-01-12 16:00 | XR ---
EXAMINATION TYPE: XR chest 2V DATE OF EXAM: 01/12/2023 COMPARISON: 12/27/2019 HISTORY: 72-year-old female with dysrhythmia, shortness of breath TECHNIQUE: AP and lateral views FINDINGS: Heart mildly enlarged. Perihilar/interstitial prominence. Left base is underpenetrated and not well a ssessed. No pleural effusion. IMPRESSION: Cardiomegaly and interstitial prominence. Correlate for possible mild pulmonary vascular congestion. Relatively similar appearance.
[2023-01-12] MEDS ORDERED: NALOXONE 0.4 MG/ML 1 ML VIAL IV PRN (18:37)
[2023-01-12] MEDS ORDERED: HEPARIN SODIUM 1,000 UN/ML (10ML VL) IV PRN (18:42)
[2023-01-12] MEDS ORDERED: HEPARIN SODIUM 1,000 UN/ML (10ML VL) IV ONE (18:42)
[2023-01-12] MEDS ORDERED: HEPARIN SOD,PORK IN 0.45% NACL 25,000 UNIT in 0.45% NACL 1 250ML.BAG IV SCH (18:45)
[2023-01-12] MEDS: SODIUM CHLORIDE 0.9% 1,000 ML IV SCH (19:04)
[2023-01-12 20:17] LABS: INR 0.9 (<1.2); Prothrombin Time 9.8 sec (9.0-12.0)
[2023-01-12] MEDS: FAMOTIDINE 20 MG TAB PO SCH (20:25)
[2023-01-12 20:33] LABS: Partial Thromboplastin Time 20.8 sec (22.0-30.0)
[2023-01-13] MEDS ORDERED: MECLIZINE 25 MG TAB PO PRN (07:08)
[2023-01-13] MEDS ORDERED: HYDROcodone/APAP 10-325MG 1 EACH TAB PO PRN (07:08)
[2023-01-13] MEDS ORDERED: ALBUTEROL NEBULIZED 2.5 MG/3 ML INHALATION PRN (07:08)
[2023-01-13] MEDS ORDERED: ACETAMINOPHEN TAB 325 MG TAB PO PRN (07:09)
[2023-01-13] MEDS ORDERED: ONDANSETRON 4 MG/2 ML VIAL IVP PRN (07:09)
[2023-01-13] MEDS: PARoxetine 20 MG TAB PO SCH (08:35)
[2023-01-13] MEDS: SODIUM CHLORIDE 0.9% 1,000 ML IV SCH ×2 (08:35→20:39)
[2023-01-13] MEDS: FAMOTIDINE 20 MG TAB PO SCH ×2 (08:35→20:41)
[2023-01-13] MEDS ORDERED: METOPROLOL TARTRATE 25 MG TAB PO SCH (09:45)
[2023-01-13] MEDS: predniSONE 5 MG TAB PO SCH (09:56)
[2023-01-13] MEDS: ASPIRIN 81 MG PO SCH (09:56)
[2023-01-13] MEDS: FUROSEMIDE 10 MG/ML 4 ML VIAL IV SCH (09:56)
[2023-01-13] MEDS: METOPROLOL SUCCINATE (ER) 25 MG TAB.ER.24H PO SCH (09:57)
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
[2023-01-13 11:48] LABS: Basophils % (A) 0 %; Eosinophils # (A) 0.3 k/uL (0-0.7); Eosinophils % (A) 3 %; HCT 36.3 % (34.0-46.0); HGB 11.7 gm/dL (11.4-16.0); Hypochromasia Slight; Lymphocytes # (A) 1.8 k/uL (1.0-4.8); Lymphocytes % (A) 17 %; MCH 27.2 pg (25.0-35.0); MCHC 32.2 g/dL (31.0-37.0); MCV 84.5 fL (80.0-100.0); Mean Platelet Volume 8.6; Monocytes # (A) 1.1 k/uL (0-1.0); Monocytes % (A) 10 %; Neutrophils # (A) 7.4 k/uL (1.3-7.7); Neutrophils % (A) 69 %; Platelet Count 375 k/uL (150-450); RBC 4.29 m/uL (3.80-5.40); RDW 14.4 % (11.5-15.5); WBC 10.7 k/uL (3.8-10.6)
[2023-01-13 11:59] LABS: INR 0.9 (<1.2)
[2023-01-13 12:11] LABS: African American GFR (CKD) >90 (>60 ml/min/1.73 sqM); Anion Gap 10 mmol/L; Blood Urea Nitrogen 7 mg/dL (7-17); Calcium 8.6 mg/dL (8.4-10.2); Carbon Dioxide 25 mmol/L (22-30); Chloride 103 mmol/L (98-107); Glucose 80 mg/dL (74-99); Magnesium 2.2 mg/dL (1.6-2.3); Non-African American GFR(CKD) 90 (>60 ml/min/1.73 sqM); Potassium 3.9 mmol/L (3.5-5.1); Sodium 138 mmol/L (137-145)
--- NOTE | 2023-01-13 16:57 | CA ---
Transthoracic Echo Report Name: Nury Willett Age: 72 Gender: F : 1950 Exam Date: 01/13/2023 09:25 Exam Location: [place] [facility] Ht (in): 59 Wt (lb): 204 Ordering Physician: Rose Nava Attending/Referring Phys: Elijah VEGA Arc Cutter Liz Aguilera [facility] Procedure CPT: Indications: elevated trop, SVT Cardiac Hx: Technical Quality: Technically difficult study Contrast 1: Total Dose (mL): Contrast 2: Total Dose (mL): MEASUREMENTS (Male / Female) Normal Values 2D ECHO LV Diastolic Diameter PLAX 4.8 cm 4.2 - 5.9 / 3.9 - 5.3 cm LV Systolic Diameter PLAX 3.4 cm IVS Diastolic Thickness 1.0 cm 0.6 - 1.0 / 0.6 - 0.9 cm LVPW Diastolic Thickness 1.0 cm 0.6 - 1.0 / 0.6 - 0.9 cm LV Relative Wall Thickness 0.4 LVOT Diameter 2.0 cm Ascending Aorta Diameter 2.8 cm M-MODE Aortic Root Diameter MM 2.7 cm LA Systolic Diameter MM 3.3 cm LA Ao Ratio MM 1.2 AV Cusp Separation MM 1.4 cm DOPPLER AV Peak Velocity 163.5 cm/s AV Peak Gradient 10.7 mmHg AV Mean Velocity 122.0 cm/s AV Mean Gradient 6.5 mmHg AV Velocity Time Integral 31.7 cm LVOT Peak Velocity 113.4 cm/s LVOT Peak Gradient 5.1 mmHg LVOT Velocity Time Integral 25.8 cm LVOT Stroke Volume 78.9 cm??? LVOT Stroke Volume Index 42.4 ml/m??? LVOT Cardiac Index 2853.0 cm???/min???m??? AV Area Cont Eq vti 2.5 cm??? AV Area Cont Eq pk 2.1 cm??? Mitral E Point Velocity 85.5 cm/s Mitral A Point Velocity 97.0 cm/s Mitral E to A Ratio 0.9 MV Deceleration Time 174.2 ms LV E' Lateral Velocity 9.3 cm/s Mitral E to LV E' Lateral Ratio 9.2 LV E' Septal Velocity 7.5 cm/s Mitral E to LV E' Septal Ratio 11.4 Right Atrial Pressure 15.0 mmHg FINDINGS Left Ventricle Normal Left ventricular size, wall thickness, systolic function with no obvious regional wall motion abnormalities. Left ventricular ejection fraction is estimated at 55-60 %. Right Ventricle Moderate right ventricular dilatation. Unable to estimate the right ventricular systolic pressure. Right Atrium Normal right atrial size. Left Atrium Normal left atrial size. Mitral Valve Structurally normal mitral valve. Mild thickening/calcification of the posterior mitral valve leaflet. Mild mitral regurgitation. Aortic Valve Trileaflet aortic valve. Aortic valve sclerosis. No aortic valve stenosis or regurgitation. Tricuspid Valve Structurally normal tricuspid valve. No tricuspid regurgitation. Pulmonic Valve Structurally normal pulmonic valve. Mild pulmonic regurgitation. Pericardium No pericardial effusion. Echo free space anterior to the right ventricle likely represents a fat pad. Aorta Normal size aortic root and proximal ascending aorta. CONCLUSIONS Normal LV systolic function Previewed by: Dr. Aaron Gonsalez MD (Electronically Signed) Final Date: 13 January 2023 16:56
[2023-01-13] MEDS: HEPARIN SODIUM,PORCINE 5,000 UNIT/ML 1 ML VIAL SQ SCH ×2 (17:03→23:38)
[2023-01-14 08:03] LABS: Basophils # (A) 0.1 k/uL (0-0.2); Basophils % (A) 0 %; Eosinophils # (A) 0.6 k/uL (0-0.7); Eosinophils % (A) 4 %; HCT 37.5 % (34.0-46.0); HGB 12.3 gm/dL (11.4-16.0); Hypochromasia Slight; Lymphocytes # (A) 1.9 k/uL (1.0-4.8); Lymphocytes % (A) 11 %; MCH 27.5 pg (25.0-35.0); MCHC 32.9 g/dL (31.0-37.0); MCV 83.5 fL (80.0-100.0); Mean Platelet Volume 7.8; Monocytes # (A) 1.3 k/uL (0-1.0); Monocytes % (A) 7 %; Neutrophils # (A) 13.7 k/uL (1.3-7.7); Neutrophils % (A) 77 %; Platelet Count 408 k/uL (150-450); RBC 4.49 m/uL (3.80-5.40); RDW 14.5 % (11.5-15.5); WBC 17.7 k/uL (3.8-10.6)
[2023-01-14 08:10] LABS: African American GFR (CKD) >90 (>60 ml/min/1.73 sqM); Anion Gap 7 mmol/L; Blood Urea Nitrogen 10 mg/dL (7-17); Calcium 9.1 mg/dL (8.4-10.2); Carbon Dioxide 26 mmol/L (22-30); Chloride 101 mmol/L (98-107); Glucose 112 mg/dL (74-99); Non-African American GFR(CKD) >90 (>60 ml/min/1.73 sqM); Potassium 3.8 mmol/L (3.5-5.1); Sodium 134 mmol/L (137-145)
[2023-01-14] MEDS: HEPARIN SODIUM,PORCINE 5,000 UNIT/ML 1 ML VIAL SQ SCH ×2 (08:17→15:49)
[2023-01-14] MEDS: FAMOTIDINE 20 MG TAB PO SCH ×2 (08:17→20:18)
[2023-01-14] MEDS: PARoxetine 20 MG TAB PO SCH (08:17)
[2023-01-14] MEDS: FUROSEMIDE 10 MG/ML 4 ML VIAL IV SCH (08:17)
[2023-01-14] MEDS: METOPROLOL SUCCINATE (ER) 25 MG TAB.ER.24H PO SCH (08:18)
[2023-01-14] MEDS: predniSONE 5 MG TAB PO SCH (08:18)
[2023-01-14] MEDS: ASPIRIN 81 MG PO SCH (08:18)
[2023-01-14 08:39] LABS: Chol/HDL Ratio 3.46 Ratio; LDL Cholesterol,Calculated 72.2 mg/dL (0.0-131.0)
[2023-01-14] MEDS ORDERED: VANCOMYCIN IV PER PHARMACY 1 EACH MISC MISCELLANE PRN (09:02)
--- NOTE | 2023-01-14 09:20 | XR ---
EXAMINATION TYPE: XR chest 2V DATE OF EXAM: 01/14/2023 COMPARISON: 01/12/2023 INDICATION: Cough TECHNIQUE: Frontal and lateral views of the chest are obtained. FINDINGS: The heart size is normal. The pulmonary vasculature is normal. There is slight increased opacity over the left cardiac apex. Some streak atelectasis may be present on the lateral projection. IMPRESSION: 1. Suggestion of atelectasis left base. Follow-up is recommended
[2023-01-14 09:47] LABS: Appearance,Urine Clear (Clear); Bilirubin,Urine Negative (Negative); Blood,Urine Negative (Negative); Color,Urine Colorless; Glucose,Urine (UA) Negative (Negative); Ketones,Urine Negative (Negative); Leukocyte Esterase,Urine Negative (Negative); Nitrite,Urine Negative (Negative); Protein,Urine Negative (Negative); Specific Gravity,Urine 1.004 (1.001-1.035); Urobilinogen,Urine <2.0 mg/dL (<2.0)
[2023-01-14] MEDS: SODIUM CHLORIDE 0.9% 1,000 ML IV SCH ×2 (10:58→17:05)
[2023-01-14] MEDS ORDERED: VANCOMYCIN 1,750 MG in SODIUM CHLORIDE 0.9% 500 ML 500 ML IVPB ONE (11:00)
--- NOTE | 2023-01-14 12:31 | P.PN ---
Subjective Progress Note Date: 01/14/23 History of present illness: This is a 72-year-old female patient of Dr. Gallito Gonsalez with past medical history of mild aortic regurgitation, right bundle-branch block. Patient initially presented to [facility] found to be in SVT at 184 bpm. Patient was given adenosine 6 mg and converted. Heart rate is now in the 70s and 80s. Patient presented to the hospital due to palpitations, shortness of breath and chest pain. She states the chest pain hurts when she coughs. She does have a cough noted. Lab work obtained at [facility] revealed potassium 3.5, magnesium 2 and creatinine 0.7. EKG sinus rhythm with bundle branch block Chest x-ray: Cardiomegaly and interstitial prominence. Possible mild pulmonary vascular congestion Troponin 0.079 and 0.069. INR 0.9. Home cardiac medications: Hydrochlorothiazide 12.5 mg daily, potassium 10 mEq daily 01/14 Patient is seen today in follow-up. She is having some episodes of dizziness off and on. Echocardiogram revealed EF of 55-60%. She has been on IV Lasix. Orthostatic vital signs were requested which came back negative. Physical examination: Gen: This is a 72-year-old female. She is resting in bed appears to be comfortable in no acute distress. VS: reviewed HEENT: Head is atraumatic, normocephalic. Pupils equal, round. Sclerae is anicteric. NECK: Supple. No JVD. . LUNGS: Clear to auscultation. No wheezes or rhonchi. No intercostal retractions. HEART: Regular rate and rhythm. No murmur. ABDOMEN: Soft No tenderness. EXTREMITIES: No pedal edema. No calf tenderness. NEUROLOGICAL: Patient is awake, alert and oriented x3. Assessment: SVT Elevated troponins most likely due to SVT, type II mismatch Mild aortic regurgitation Right bundle-branch block Cellulitis of lower extremities with edema Plan: Continue patient's home cardiac medications Physician IV Lasix to oral, monitor I&O, daily weights elective lites and renal function Increase patient's activity and monitor symptoms. Further recommendations to follow based upon clinical course Nurse practitioner note has been reviewed, I agree with documented findings and plan of care. Patient was seen and examined. Objective - Vital Signs Vital signs: Vital Signs Temp 97.8 F 01/14/23 08:14 Pulse 72 01/14/23 09:56 Resp 18 01/14/23 09:56 BP 110/70 01/14/23 08:14 Pulse Ox 95 01/14/23 08:14 FiO2 Intake & Output 01/13/23 01/14/23 01/14/23 18:59 06:59 18:59 Intake Total 690 10 Output Total 650 700 Balance 40 -690 Weight 91.9 kg Intake: IV 10 Invasive Line 3 10 Oral 690 Output: Urine 650 700 Other: Voiding Method Bedside Commode Toilet Toilet # Voids 1 1 1 # Bowel Movements 1 1 - Labs CBC & Chem 7: 01/14/23 07:39 01/14/23 07:38 Labs: Abnormal Lab Results - Last 24 Hours (Table) 01/13/23 01/13/23 01/13/23 Range/Units 08:17 08:17 08:17 WBC 10.7 H (3.8-10.6) k/uL Neutrophils # (1.3-7.7) k/uL Monocytes # 1.1 H (0-1.0) k/uL Sodium (137-145) mmol/L Glucose (74-99) mg/dL Troponin I 0.048 H* (0.000-0.034) ng/mL HDL Cholesterol 39.60 L (40.00-60.00) mg/dL 01/14/23 01/14/23 Range/Units 07:38 07:39 WBC 17.7 H (3.8-10.6) k/uL Neutrophils # 13.7 H (1.3-7.7) k/uL Monocytes # 1.3 H (0-1.0) k/uL Sodium 134 L (137-145) mmol/L Glucose 112 H (74-99) mg/dL Troponin I (0.000-0.034) ng/mL HDL Cholesterol (40.00-60.00) mg/dL
--- NOTE | 2023-01-14 17:11 | P.PN ---
Subjective Progress Note Date: 01/13/23 72-year-old female, history of asthma/COPD, CHF, hypertension and GERD, transferred from [facility] after presenting there this morning with palpitations and shortness of breath. She was found have SVT with heart rate 170-180 bpm she was given 1 dose of adenosine which did convert the patient to a sinus rhythm. During her monitoring. She is found have a troponin that was steadily going up with the last one being in 0.127. Patient's been symptom free since the initial resuscitation she is here for higher-level care and cardiac consultation. History of CHF COPD and asthma. Noted that she had peripheral edema EKG shows a sinus rhythm 82 with a right bundle-branch block pattern GA interval 147 QRS duration 136 QT since QTC 443; no acute changes from the postconversion EKG. Objective - Vital Signs Vital signs: Vital Signs Temp 98.7 F 01/13/23 08:24 Pulse 74 01/13/23 12:45 Resp 18 01/13/23 12:45 BP 117/69 01/13/23 12:45 Pulse Ox 97 01/13/23 12:45 FiO2 Intake & Output 01/12/23 01/13/23 01/13/23 18:59 06:59 18:59 Intake Total 82.833 465 Output Total 650 Balance 82.833 -185 Weight 92.533 kg 92.533 kg Intake: Intake, IV Titration 82.833 Amount Heparin Sod,Pork in 0.45% 82.833 NaCl 25,000 unit In 0.45 % NaCl 1 250ml.bag @ 10. 807 UNITS/KG/HR 10 mls/hr IV .Q24H [facility] Rx#: [id number] Oral 465 Output: Urine 650 Other: Voiding Method Bedside Commode Bedside Commode # Voids 1 1 # Bowel Movements 1 - Exam General appearance: alert, in no apparent distress Head exam: Present: atraumatic, normocephalic, normal inspection Eye exam: Present: normal appearance, PERRL, EOMI. Absent: scleral icterus, conjunctival injection, periorbital swelling ENT exam: Present: normal exam, mucous membranes moist Neck exam: Present: normal inspection, full ROM, other (No stridor JVD or bruits). Absent: tenderness, meningismus, lymphadenopathy Respiratory exam: Present: normal lung sounds bilaterally. Absent: respiratory distress, wheezes, rales, rhonchi, stridor Cardiovascular Exam: Present: regular rate, normal rhythm, normal heart sounds. Absent: systolic murmur, diastolic murmur, rubs, gallop, clicks GI/Abdominal exam: Present: soft, normal bowel sounds. Absent: distended, tenderness, guarding, rebound, rigid Extremities exam: Present: full ROM, normal capillary refill, pedal edema, other (Bilateral pedal edema with stasis dermatitis noted). Absent: tenderness, joint swelling, calf tenderness Back exam: Present: normal inspection Neurological exam: Present: alert, oriented X3, CN II-XII intact Psychiatric exam: Present: normal affect, normal mood Skin exam: Present: warm, dry, intact, normal color. Absent: rash - Labs CBC & Chem 7: 01/14/23 07:39 01/14/23 07:38 Labs: Abnormal Lab Results - Last 24 Hours (Table) 01/12/23 01/12/23 01/12/23 Range/Units 19:50 20:40 23:46 WBC (3.8-10.6) k/uL Monocytes # (0-1.0) k/uL APTT 20.8 L (22.0-30.0) sec Troponin I 0.079 H* 0.069 H* (0.000-0.034) ng/mL 01/13/23 01/13/23 01/13/23 Range/Units 00:42 08:17 08:17 WBC 10.7 H (3.8-10.6) k/uL Monocytes # 1.1 H (0-1.0) k/uL APTT 21.8 L (22.0-30.0) sec Troponin I 0.048 H* (0.000-0.034) ng/mL Assessment and Plan Assessment: 1. NSTEMI; troponin trended up to 0.079; patient remains on IV heparin per protocol; aspirin 81 mg daily and metoprolol 25 mg daily 2. SVT; resolved with 1 dose of adenosine; patient is currently normal sinus rhythm; we will monitor EKG and trend troponin; cardiology is consulted 3. Acute exacerbation CHF; patient has been placed on Lasix 40 mg IV every 12 hours; we will monitor strict YOLNADA's, daily weights; low-salt and fluid restricted diet -- Echocardiogram will be ordered for evaluation of LV 4. Hypertension; metoprolol 25 mg daily 5. Asthma/COPD; not in exacerbation; patient takes prednisone 5 mg daily 6. Depression; Paxil 20 mg daily DVT prophylaxis; SCDs/IV heparin CODE STATUS; full code
--- NOTE | 2023-01-14 17:15 | P.PN ---
Subjective Progress Note Date: 01/14/23 72-year-old female, history of asthma/COPD, CHF, hypertension and GERD, transferred from [facility] after presenting there this morning with palpitations and shortness of breath. She was found have SVT with heart rate 170-180 bpm she was given 1 dose of adenosine which did convert the patient to a sinus rhythm. During her monitoring. She is found have a troponin that was steadily going up with the last one being in 0.127. Patient's been symptom free since the initial resuscitation she is here for higher-level care and cardiac consultation. History of CHF COPD and asthma. Noted that she had peripheral edema EKG shows a sinus rhythm 82 with a right bundle-branch block pattern CA interval 147 QRS duration 136 QT since QTC 443; no acute changes from the postconversion EKG. 01/14/2023 Patient is seen and evaluated in room at bedside; report some episodes of d izziness Vital signs are reviewed; patient is negative for orthostatic hypotension; white blood count is markedly elevated at 17,000 this morning; no fever Echocardiogram reveals an EF of 55-60% Patient has been followed by cardiology for SVT and elevated troponin which is deemed type II mismatch most likely due to SVT -- Cardiology recommending to proceed with switching to oral Lasix -- Cellulitis left lower extremity; white blood count is markedly elevated at 17.7 from 10.7 yesterday; CRP is elevated at 6.2; lactic acid level within normal limits - Patient has been placed on IV antibiotics in form of Rocephin and vancomycin; ID is consulted Objective - Vital Signs Vital signs: Vital Signs Temp 97.8 F 01/14/23 08:14 Pulse 72 01/14/23 08:14 Resp 18 01/14/23 08:14 BP 110/70 01/14/23 08:14 Pulse Ox 95 01/14/23 08:14 FiO2 Intake & Output 01/13/23 01/14/23 01/14/23 18:59 06:59 18:59 Intake Total 690 10 Output Total 650 700 Balance 40 -690 Weight 91.9 kg Intake: IV 10 Invasive Line 3 10 Oral 690 Output: Urine 650 700 Other: Voiding Method Bedside Commode Toilet # Voids 1 1 # Bowel Movements 1 - Exam General appearance: alert, in no apparent distress Head exam: Present: atraumatic, normocephalic, normal inspection Eye exam: Present: normal appearance, PERRL, EOMI. Absent: scleral icterus, conjunctival injection, periorbital swelling ENT exam: Present: normal exam, mucous membranes moist Neck exam: Present: normal inspection, full ROM, other (No stridor JVD or bruits). Absent: tenderness, meningismus, lymphadenopathy Respiratory exam: Present: normal lung sounds bilaterally. Absent: respiratory distress, wheezes, rales, rhonchi, stridor Cardiovascular Exam: Present: regular rate, normal rhythm, normal heart sounds. Absent: systolic murmur, diastolic murmur, rubs, gallop, clicks GI/Abdominal exam: Present: soft, normal bowel sounds. Absent: distended, tenderness, guarding, rebound, rigid Extremities exam: Present: full ROM, normal capillary refill, pedal edema, other (Bilateral pedal edema with stasis dermatitis noted). Absent: tenderness, joint swelling, calf tenderness Back exam: Present: normal inspection Neurological exam: Present: alert, oriented X3, CN II-XII intact Psychiatric exam: Present: normal affect, normal mood Skin exam: Present: warm, dry, intact, normal color. Absent: rash - Labs CBC & Chem 7: 01/14/23 07:39 01/14/23 07:38 Labs: Abnormal Lab Results - Last 24 Hours (Table) 01/13/23 01/13/23 01/13/23 Range/Units 08:17 08:17 08:17 WBC 10.7 H (3.8-10.6) k/uL Neutrophils # (1.3-7.7) k/uL Monocytes # 1.1 H (0-1.0) k/uL Sodium (137-145) mmol/L Glucose (74-99) mg/dL Troponin I 0.048 H* (0.000-0.034) ng/mL HDL Cholesterol 39.60 L (40.00-60.00) mg/dL 01/14/23 01/14/23 Range/Units 07:38 07:39 WBC 17.7 H (3.8-10.6) k/uL Neutrophils # 13.7 H (1.3-7.7) k/uL Monocytes # 1.3 H (0-1.0) k/uL Sodium 134 L (137-145) mmol/L Glucose 112 H (74-99) mg/dL Troponin I (0.000-0.034) ng/mL HDL Cholesterol (40.00-60.00) mg/dL Assessment and Plan Assessment: 1. NSTEMI; troponin trended up to 0.079; patient remains on IV heparin per protocol; aspirin 81 mg daily and metoprolol 25 mg daily 2. SVT; resolved with 1 dose of adenosine; patient is currently normal sinus rhythm; we will monitor EKG and trend troponin; cardiology is consulted 3. Acute exacerbation CHF; patient has been placed on Lasix 40 mg IV every 12 hours; we will monitor strict YOLANDA's, daily weights; low-salt and fluid restricted diet -- Echocardiogram will be ordered for evaluation of LV 4. Hypertension; metoprolol 25 mg daily 5. Asthma/COPD; not in exacerbation; patient takes prednisone 5 mg daily 6. Depression; Paxil 20 mg daily DVT prophylaxis; SCDs/IV heparin CODE STATUS; full code
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
[2023-01-15] MEDS: HEPARIN SODIUM,PORCINE 5,000 UNIT/ML 1 ML VIAL SQ SCH ×3 (00:17→15:21)
[2023-01-15] MEDS ORDERED: VANCOMYCIN 1,500 MG in SODIUM CHLORIDE 0.9% 500 ML 500 ML IVPB SCH (02:00)
[2023-01-15] MEDS: FAMOTIDINE 20 MG TAB PO SCH ×2 (09:07→21:23)
[2023-01-15] MEDS: ASPIRIN 81 MG PO SCH (09:07)
[2023-01-15] MEDS: FUROSEMIDE 40 MG TAB PO SCH (09:07)
[2023-01-15] MEDS: METOPROLOL SUCCINATE (ER) 25 MG TAB.ER.24H PO SCH (09:07)
[2023-01-15] MEDS: PARoxetine 20 MG TAB PO SCH (09:07)
[2023-01-15] MEDS: predniSONE 5 MG TAB PO SCH (09:08)
[2023-01-15 10:08] LABS: African American GFR (CKD) >90 (>60 ml/min/1.73 sqM); Anion Gap 9 mmol/L; Blood Urea Nitrogen 11 mg/dL (7-17); Carbon Dioxide 22 mmol/L (22-30); Chloride 104 mmol/L (98-107); Glucose 121 mg/dL (74-99); Non-African American GFR(CKD) >90 (>60 ml/min/1.73 sqM); Potassium 4.1 mmol/L (3.5-5.1); Sodium 135 mmol/L (137-145)
--- NOTE | 2023-01-15 11:20 | P.PN ---
Subjective HISTORY OF PRESENT ILLNESS: This is a 72-year-old female patient of Dr. Gallito Gonsalez with past medical history of mild aortic regurgitation, right bundle-branch block. Patient initially presented to [facility] found to be in SVT at 184 bpm. Patient was given adenosine 6 mg and converted. Heart rate is now in the 70s and 80s. Patient presented to the hospital due to palpitations, shortness of breath and chest pain. She states the chest pain hurts when she coughs. She does have a cough noted. Lab work obtained at [facility] revealed potassium 3.5, magnesium 2 and creatinine 0.7. EKG sinus rhythm with bundle branch block Chest x-ray: Cardiomegaly and interstitial prominence. Possible mild pulmonary vascular congestion Troponin 0.079 and 0.069. INR 0.9. Home cardiac medications: Hydrochlorothiazide 12.5 mg daily, potassium 10 mEq daily 01/14 Patient is seen today in follow-up. She is having some episodes of dizziness off and on. Echocardiogram revealed EF of 55-60%. She has been on IV Lasix. Orthostatic vital signs were requested which came back negative. 01/15/2023 Patient examined this morning. She is sitting up in the chair. Patient denies any chest pain or pressure. She denies shortness of breath. She reports weakness of her left lower extremity. She also reports having some numbness of her left arm. She states that she fell prior to coming to the hospital and alton ded on her left side. Patient reports she feels dizzy upon standing. No episodes of syncope. Echocardiogram completed revealing ejection fraction 55-60% with mild MR. PHYSICAL EXAM: VITAL SIGNS: Reviewed. GENERAL: Well-developed in no acute distress. NECK: Supple. No JVD or thyromegaly LUNGS: Respirations even and unlabored. Lungs essentially clear to auscultation bilaterally. HEART: Regular rate and rhythm. S1 and S2 heard. EXTREMITIES: Normal range of motion. No clubbing or cyanosis. Peripheral pulses intact. Erythema and edema noted to bilateral lower extremities ASSESSMENT: SVT, with conversion to sinus mechanism with adenosine Elevated troponins most likely due to SVT, no evidence of acute coronary syndrome Right bundle-branch block Bilateral cellulitis of lower extremities with edema Status post recent fall at home PLAN: Continue current cardiac medications Continue telemetry monitoring Infectious disease following for bilateral lower extremity cellulitis Add Farxiga 10mg daily. Patient unable to tolerate maximum heart failure regimen secondary to dizziness and soft blood pressures Obtain orthostatic blood pressures Recommend RAJINDER hose to be worn on an outpatient basis Patient is currently stable from a cardiac standpoint Patient to follow up post discharge with Dr. Gonsalez Nurse practitioner note has been reviewed by physician. Signing provider agrees with the documented findings, assessment, and plan of care. Objective - Vital Signs Vital signs: Vital Signs Temp 98.2 F 01/15/23 08:40 Pulse 70 01/15/23 08:40 Resp 16 01/15/23 08:40 BP 98/60 01/15/23 08:40 Pulse Ox 95 01/15/23 08:40 FiO2 Intake & Output 01/14/23 01/15/23 01/15/23 18:59 06:59 18:59 Intake Total 600 10 420 Output Total 1400 Balance 600 -1390 420 Intake: IV 10 Invasive Line 3 10 Intake, IV Titration 600 Amount Vancomycin 1,500 mg In 500 Sodium Chloride 0.9% 500 ml 500 ml @ 167 mls/hr IVPB Q16H [facility] Rx#: [id number] cefTRIAXone 2 gm In 100 Sodium Chloride 0.9% 50 ml @ 100 mls/hr IVPB Q24HR [facility] Rx#:[id number] Oral 420 Output: Urine 1400 Other: Voiding Method Toilet Bedside Commode # Voids 2 1 # Bowel Movements 1 - Labs CBC & Chem 7: 01/14/23 07:39 01/15/23 09:02 Labs: Abnormal Lab Results - Last 24 Hours (Table) 01/14/23 01/15/23 Range/Units 07:38 09:02 Sodium 135 L (137-145) mmol/L Glucose 121 H (74-99) mg/dL C-Reactive Protein 6.2 H (<1.0) mg/dL
[2023-01-15] MEDS: DAPAGLIFLOZIN PROPANEDIOL 10 MG TABLET PO SCH (12:17)
--- NOTE | 2023-01-15 14:12 | CDI ---
Documentation Clarification Form Date: From: Citlalli Jones Phone: [phone] Admit Date: 01/12/2023 06:38:00 PM Patient Name: Nury Willett Visit Number: [id number] Discharge Date: ATTENTION: The Clinical Documentation Specialists (CDI) and [facility] Coding Staff appreciate your assistance in clarifying documentation. Please respond to the clarification below the line at the bottom and electronically sign. The CDI & [facility] Coding staff will review the response and follow-up if needed. Please note: Queries are made part of the Legal Health Record. If you have any questions, please contact the author of this message via ITS. Dr. Gucci Ann There is documentation of "Elevated troponins most likely due to SVT, type II mismatch" per Progress Note on 01/14. Additional clarification is requested. History/Risk Factors: "72-year-old female, history of asthma/COPD, CHF, hypertension and GERD, transferred from [facility] after presenting there this morning with palpitations and shortness of breath." - Per Medical H&P on 01/12 Clinical Indicators: "was found have SVT with heart rate 170-180 bpm she was given 1 dose of adenosine which did convert the patient to a sinus rhythm." "troponin that was steadily going up with the last one being in 0.127." - Per Medical H&P on 01/12 "Elevated troponins most likely due to SVT, type II mismatch" - Per Cardiology Progress Note on 01/14 Treatment: Per Medical H&P on 01/12 "patient remains on IV heparin per protocol; aspirin 81 mg daily and metoprolol 25 mg daily" Can you please clarify the diagnosis? [x ] Type 2 FL due to SVT [ ] NSTEMI type 1 [ ] Other, please specify [ ] Unable to determine MTDD
--- NOTE | 2023-01-15 14:39 | P.PN ---
Subjective Progress Note Date: 01/15/23 72-year-old female, history of asthma/COPD, CHF, hypertension and GERD, transferred from [facility] after presenting there this morning with palpitations and shortness of breath. She was found have SVT with heart rate 170-180 bpm she was given 1 dose of adenosine which did convert the patient to a sinus rhythm. During her monitoring. She is found have a troponin that was steadily going up with the last one being in 0.127. Patient's been symptom free since the initial resuscitation she is here for higher-level care and cardiac consultation. History of CHF COPD and asthma. Noted that she had peripheral edema EKG shows a sinus rhythm 82 with a right bundle-branch block pattern FL interval 147 QRS duration 136 QT since QTC 443; no acute changes from the postconversion EKG. 01/14/2023 Patient is seen and evaluated in room at bedside; report some episodes of di zziness Vital signs are reviewed; patient is negative for orthostatic hypotension; white blood count is markedly elevated at 17,000 this morning; no fever Echocardiogram reveals an EF of 55-60% Patient has been followed by cardiology for SVT and elevated troponin which is deemed type II mismatch most likely due to SVT -- Cardiology recommending to proceed with switching to oral Lasix -- Cellulitis left lower extremity; white blood count is markedly elevated at 17.7 from 10.7 yesterday; CRP is elevated at 6.2; lactic acid level within normal limits - Patient has been placed on IV antibiotics in form of Rocephin and vancomycin; ID is consulted 01/15. Patient seen and examined. Complaining of weakness of left lower extremity, on examination patient has good strength bilaterally. REVIEW OF SYSTEMS: CONSTITUTIONAL: No fever, no malaise,. CARDIOVASCULAR: No chest pain, no palpitations, no syncope. PULMONARY: No shortness of breath, no cough, GASTROINTESTINAL: No diarrhea, no nausea, no vomiting, no abdominal pain. NEUROLOGICAL: No headaches, no weakness, PHYSICAL EXAMINATION: GENERAL: The patient is alert and oriented x3, not in any acute distress. Well developed, well nourished. HEENT: Pupils are round and equally reacting to light. EOMI. No scleral icterus. No conjunctival pallor. Normocephalic, atraumatic. No pharyngeal erythema. No thyromegaly. CARDIOVASCULAR: S1 and S2 present. No murmurs, rubs, or gallops. PULMONARY: Chest is clear to auscultation, no wheezing or crackles. ABDOMEN: Soft, nontender, nondistended, normoactive bowel sounds. No palpable organomegaly. MUSCULOSKELETAL: No joint swelling or deformity. EXTREMITIES: Erythema involving left lower extremity, 1+ pitting edema lower extremities bilaterally NEUROLOGICAL: Gross neurological examination did not reveal any focal deficits. SKIN: No rashes. Assessment and plan NSTEMI SVT Acute exacerbation of heart failure with preserved ejection fraction Hypertension Asthma/COPD Depression Left Lower extremity cellulitis Monitor vital signs Monitor CBC Monitor CMP Continue telemetry monitoring regards to SVT and elevated troponin, most likely secondary to SVT, heparin discontinued, currently on aspirin and Lopressor In regards to CHF, continue oral Lasix, 2-D echo reviewed, cardiology following Regards to left lower extremity cellulitis, currently on IV cefazolin, ID following Labs and medication were reviewed.. Continue same treatment. Continue with symptomatic treatment. Resume home medication. Monitor labs and vitals. DVT and GI prophylaxis. Further recommendations as per clinical course of the patient Dictation was produced using [employer] dictation software. please excuse any grammatical, word or spelling errors. Objective - Vital Signs Vital signs: Vital Signs Temp 98.2 F 01/15/23 08:40 Pulse 70 01/15/23 08:40 Resp 16 01/15/23 08:40 BP 98/60 01/15/23 08:40 Pulse Ox 95 01/15/23 08:40 FiO2 Intake & Output 01/14/23 01/15/23 01/15/23 18:59 06:59 18:59 Intake Total 600 10 420 Output Total 1400 Balance 600 -1390 420 Intake: IV 10 Invasive Line 3 10 Intake, IV Titration 600 Amount Vancomycin 1,500 mg In 500 Sodium Chloride 0.9% 500 ml 500 ml @ 167 mls/hr IVPB Q16H [facility] Rx#: [id number] cefTRIAXone 2 gm In 100 Sodium Chloride 0.9% 50 ml @ 100 mls/hr IVPB Q24HR [facility] Rx#:[id number] Oral 420 Output: Urine 1400 Other: Voiding Method Toilet Bedside Commode # Voids 2 1 # Bowel Movements 1 - Labs CBC & Chem 7: 01/14/23 07:39 01/15/23 09:02 Labs: Abnormal Lab Results - Last 24 Hours (Table) 01/14/23 01/15/23 Range/Units 07:38 09:02 Sodium 135 L (137-145) mmol/L Glucose 121 H (74-99) mg/dL C-Reactive Protein 6.2 H (<1.0) mg/dL
[2023-01-15] MEDS: SODIUM CHLORIDE 0.9% 1,000 ML IV SCH (16:29)
[2023-01-16] MEDS: HEPARIN SODIUM,PORCINE 5,000 UNIT/ML 1 ML VIAL SQ SCH ×2 (06:19→09:12)
[2023-01-16 08:29] LABS: ALT 22 U/L (4-34); AST 29 U/L (14-36); African American GFR (CKD) >90 (>60 ml/min/1.73 sqM); Albumin 3.3 g/dL (3.5-5.0); Alkaline Phosphatase 63 U/L (38-126); Anion Gap 7 mmol/L; Blood Urea Nitrogen 12 mg/dL (7-17); Calcium 8.9 mg/dL (8.4-10.2); Carbon Dioxide 25 mmol/L (22-30); Chloride 103 mmol/L (98-107); Glucose 109 mg/dL (74-99); Non-African American GFR(CKD) >90 (>60 ml/min/1.73 sqM); Potassium 4.4 mmol/L (3.5-5.1); Sodium 135 mmol/L (137-145); Total Bilirubin 0.8 mg/dL (0.2-1.3); Total Protein 6.2 g/dL (6.3-8.2)
[2023-01-16] MEDS: SODIUM CHLORIDE 0.9% 1,000 ML IV SCH (09:02)
[2023-01-16] MEDS: DAPAGLIFLOZIN PROPANEDIOL 10 MG TABLET PO SCH (09:12)
[2023-01-16] MEDS: METOPROLOL SUCCINATE (ER) 25 MG TAB.ER.24H PO SCH (09:12)
[2023-01-16] MEDS: predniSONE 5 MG TAB PO SCH (09:12)
[2023-01-16] MEDS: ASPIRIN 81 MG PO SCH (09:12)
[2023-01-16] MEDS: PARoxetine 20 MG TAB PO SCH (09:12)
[2023-01-16] MEDS: FUROSEMIDE 40 MG TAB PO SCH (09:12)
[2023-01-16] MEDS: FAMOTIDINE 20 MG TAB PO SCH (09:12)
[2023-01-16 10:02] LABS: Basophils # (A) 0.1 k/uL (0-0.2); Basophils % (A) 1 %; Eosinophils # (A) 0.5 k/uL (0-0.7); Eosinophils % (A) 3 %; HCT 37.7 % (34.0-46.0); HGB 12.3 gm/dL (11.4-16.0); Hypochromasia Slight; Lymphocytes # (A) 1.8 k/uL (1.0-4.8); Lymphocytes % (A) 13 %; MCHC 32.5 g/dL (31.0-37.0); MCV 82.9 fL (80.0-100.0); Mean Platelet Volume 7.8; Monocytes # (A) 1.2 k/uL (0-1.0); Monocytes % (A) 9 %; Neutrophils # (A) 9.7 k/uL (1.3-7.7); Neutrophils % (A) 72 %; Platelet Count 391 k/uL (150-450); RBC 4.55 m/uL (3.80-5.40); RDW 14.4 % (11.5-15.5); WBC 13.5 k/uL (3.8-10.6)
--- NOTE | 2023-01-16 11:19 | P.PN ---
Subjective HISTORY OF PRESENT ILLNESS: This is a 72-year-old female patient of Dr. Gallito Gonsalez with past medical history of mild aortic regurgitation, right bundle-branch block. Patient initially presented to [facility] found to be in SVT at 184 bpm. Patient was given adenosine 6 mg and converted. Heart rate is now in the 70s and 80s. Patient presented to the hospital due to palpitations, shortness of breath and chest pain. She states the chest pain hurts when she coughs. She does have a cough noted. Lab work obtained at [facility] revealed potassium 3.5, magnesium 2 and creatinine 0.7. EKG sinus rhythm with bundle branch block Chest x-ray: Cardiomegaly and interstitial prominence. Possible mild pulmonary vascular congestion Troponin 0.079 and 0.069. INR 0.9. Home cardiac medications: Hydrochlorothiazide 12.5 mg daily, potassium 10 mEq daily 01/14 Patient is seen today in follow-up. She is having some episodes of dizziness off and on. Echocardiogram revealed EF of 55-60%. She has been on IV Lasix. Orthostatic vital signs were requested which came back negative. 01/15/2023 Patient examined this morning. She is sitting up in the chair. Patient denies any chest pain or pressure. She denies shortness of breath. She reports weakness of her left lower extremity. She also reports having some numbness of her left arm. She states that she fell prior to coming to the hospital and alton ded on her left side. Patient reports she feels dizzy upon standing. No episodes of syncope. Echocardiogram completed revealing ejection fraction 55-60% with mild MR. 01/16/2023 Patient examined this morning at the bedside. Patient denies chest pain or pressure. She denies shortness of breath. Telemetry reveals sinus mechanism. No further episodes of SVT. Patient denies dizziness this morning. Blood pressure 119/64. PHYSICAL EXAM: VITAL SIGNS: Reviewed. GENERAL: Well-developed in no acute distress. NECK: Supple. No JVD or thyromegaly LUNGS: Respirations even and unlabored. Lungs essentially clear to auscultation bilaterally. HEART: Regular rate and rhythm. S1 and S2 heard. EXTREMITIES: Normal range of motion. No clubbing or cyanosis. Peripheral pulses intact. Erythema and edema noted to bilateral lower extremities ASSESSMENT: SVT, with conversion to sinus mechanism with adenosine Elevated troponins most likely due to SVT, no evidence of acute coronary syndrome Right bundle-branch block Bilateral cellulitis of lower extremities with edema Status post recent fall at home PLAN: Continue current cardiac medications Continue telemetry monitoring Infectious disease following for bilateral lower extremity cellulitis Farxiga 10mg daily added yesterday. Patient unable to tolerate maximum heart fa ilure regimen secondary to dizziness and soft blood pressures Recommend RAJINDER hose to be worn on an outpatient basis Patient is currently stable from a cardiac standpoint Consider EP study if patient has recurrent episodes of SVT Patient to follow up post discharge with Dr. Gonsalez Nurse practitioner note has been reviewed by physician. Signing provider agrees with the documented findings, assessment, and plan of care. Objective - Vital Signs Vital signs: Vital Signs Temp 98.3 F 01/16/23 08:00 Pulse 67 01/16/23 08:00 Resp 16 01/16/23 08:00 BP 119/64 01/16/23 08:00 Pulse Ox 99 01/16/23 08:00 FiO2 Intake & Output 01/15/23 01/16/23 01/16/23 18:59 06:59 18:59 Intake Total 700 240 Output Total 2555 637 3381 Balance -750 -300 -1210 Intake: Intake, IV Titration 100 Amount ceFAZolin 2 gm In Sodium 100 Chloride 0.9% 50 ml @ 100 mls/hr IVPB Q8HR [facility] Rx# :[id number] Oral 600 240 Output: Urine 9150 575 1341 Other: Voiding Method Bedside Commode Bedside Commode # Voids 1 2 - Labs CBC & Chem 7: 01/16/23 09:32 01/16/23 07:40 Labs: Abnormal Lab Results - Last 24 Hours (Table) 01/16/23 01/16/23 Range/Units 07:40 09:32 WBC 13.5 H (3.8-10.6) k/uL Neutrophils # 9.7 H (1.3-7.7) k/uL Monocytes # 1.2 H (0-1.0) k/uL Sodium 135 L (137-145) mmol/L Glucose 109 H (74-99) mg/dL Total Protein 6.2 L (6.3-8.2) g/dL Albumin 3.3 L (3.5-5.0) g/dL
[2023-01-16 12:34] VITALS: BP 125/83; PULSE 60; RESP 18; TEMP 97.2
--- NOTE | 2023-01-16 12:56 | P.DS ---
Providers Date of admission: 01/12/23 18:38 Expected date of discharge: 01/16/23 Attending physician: Machelle Green MD Consults: 01/12/23 18:37 Consult Physician Routine Consulting Provider: Aaron Gonsalez Consult Reason/Comments: SVT, elevated troponin Do you want consulting provider notified?: Yes 01/14/23 17:15 Consult Physician Routine Consulting Provider: Noam Zabala Consult Reason/Comments: Cellulitis/sepsis Do you want consulting provider notified?: Yes Primary care physician: [facility] Course: Discharge diagnoses; NSTEMI SVT Acute exacerbation of heart failure with preserved ejection fraction Hypertension Asthma/COPD Depression Left Lower extremity cellulitis Hospital course; 72-year-old female, history of asthma/COPD, CHF, hypertension and GERD, transferred from [facility] after presenting there this morning with palpitations and shortness of breath. She was found have SVT with heart rate 170-180 bpm she was given 1 dose of adenosine which did convert the patient to a sinus rhythm. During her monitoring. She is found have a troponin that was steadily going up with the last one being in 0.127. Patient's been symptom free since the initial resuscitation she is here for higher-level care and cardiac consultation. History of CHF COPD and asthma. Noted that she had peripheral edema EKG shows a sinus rhythm 82 with a right bundle-branch block pattern AR interval 147 QRS duration 136 QT since QTC 443; no acute changes from the postconversion EKG. 01/14/2023 Patient is seen and evaluated in room at bedside; report some episodes of dizziness Vital signs are reviewed; patient is negative for orthostatic hypotension; white blood count is markedly elevated at 17,000 this morning; no fever Echocardiogram reveals an EF of 55-60% Patient has been followed by cardiology for SVT and elevated troponin which is deemed type II mismatch most likely due to SVT -- Cardiology recommending to proceed with switching to oral Lasix -- Cellulitis left lower extremity; white blood count is markedly elevated at 17.7 from 10.7 yesterday; CRP is elevated at 6.2; lactic acid level within chago l limits - Patient has been placed on IV antibiotics in form of Rocephin and vancomycin; ID is consulted 01/15. Patient seen and examined. Complaining of weakness of left lower extremity, on examination patient has good strength bilaterally. 01/16. Patient seen and examined. No acute issues overnight. Lab work done showed sodium 135, potassium 4.4, BUN 12, creatinine 0.61. ID recommended disch arging patient oral Keflex for one more week. Cardiology cleared the patient for discharge PHYSICAL EXAMINATION: GENERAL: The patient is alert and oriented x3, not in any acute distress. Well developed, well nourished. HEENT: Pupils are round and equally reacting to light. EOMI. No scleral icterus. No conjunctival pallor. Normocephalic, atraumatic. No pharyngeal erythema. No thyromegaly. CARDIOVASCULAR: S1 and S2 present. No murmurs, rubs, or gallops. PULMONARY: Chest is clear to auscultation, no wheezing or crackles. ABDOMEN: Soft, nontender, nondistended, normoactive bowel sounds. No palpable organomegaly. MUSCULOSKELETAL: No joint swelling or deformity. EXTREMITIES: No cyanosis, clubbing, or pedal edema. left lower extremity erythema has improved NEUROLOGICAL: Gross neurological examination did not reveal any focal deficits. SKIN: No rashes. Dictation was produced using [employer] dictation software. please excuse any grammatical, word or spelling errors. Patient Condition at Discharge: Stable Plan - Discharge Summary Discharge Rx Participant: No New Discharge Prescriptions: New Dapagliflozin Propanediol [Farxiga] 10 mg PO DAILY #30 tab Aspirin 81 mg PO DAILY #30 tab cephALEXin [Keflex] 750 mg PO Q12HR 7 Days #14 cap Furosemide [Lasix] 40 mg PO DAILY #30 tab Metoprolol Succinate (ER) [Toprol XL] 25 mg PO DAILY #30 tab Continue Omeprazole 20 mg PO DAILY HYDROcodone/APAP 10-325MG [[place] 10-325] 1 tab PO BID PRN PRN Reason: Pain predniSONE 5 mg PO DAILY PARoxetine HCL [Paxil] 20 mg PO DAILY Acetaminophen [Tylenol Arthritis] 650 mg PO Q8H PRN PRN Reason: Fever And/ Or Pain Albuterol Sulfate [Albuterol Sulfate Hfa] 2 puff PO RT-Q6H PRN PRN Reason: Shortness Of Breath Meclizine [Antivert] 25 mg PO BID PRN PRN Reason: Vertigo Potassium Chloride ER [K-Dur 10] 10 meq PO DAILY #30 tab Discontinued hydroCHLOROthiazide [Hydrodiuril] 12.5 mg PO DAILY Discharge Medication List Omeprazole 20 mg PO DAILY 08/19/15 [History] HYDROcodone/APAP 10-325MG [[place] 10-325] 1 tab PO BID PRN 01/25/17 [History] predniSONE 5 mg PO DAILY 12/28/19 [History] Acetaminophen [Tylenol Arthritis] 650 mg PO Q8H PRN 01/12/23 [History] Albuterol Sulfate [Albuterol Sulfate Hfa] 2 puff PO RT-Q6H PRN 01/12/23 [History] Meclizine [Antivert] 25 mg PO BID PRN 01/12/23 [History] PARoxetine HCL [Paxil] 20 mg PO DAILY 01/12/23 [History] Aspirin 81 mg PO DAILY #30 tab 01/16/23 [Rx] Dapagliflozin Propanediol [Farxiga] 10 mg PO DAILY #30 tab 01/16/23 [Rx] Furosemide [Lasix] 40 mg PO DAILY #30 tab 01/16/23 [Rx] Metoprolol Succinate (ER) [Toprol XL] 25 mg PO DAILY #30 tab 01/16/23 [Rx] Potassium Chloride ER [K-Dur 10] 10 meq PO DAILY #30 tab 01/16/23 [Rx] cephALEXin [Keflex] 750 mg PO Q12HR 7 Days #14 cap 01/16/23 [Rx] Follow up Appointment(s)/Referral(s): [facility] [NON-STAFF] - Shiv Wagoner MD [Primary Care Provider] - 1-2 days Noam Zabala MD [STAFF PHYSICIAN] - 1 Week Sergei Lawson DO [STAFF PHYSICIAN] - 1 Week Discharge Disposition: HOME WITH HOME HEALTH SERVICES
--- NOTE | 2023-02-01 07:35 | CDI ---
Documentation Clarification Form Date: From: Ariella Boyce Phone: Admit Date: 01/12/2023 06:38:00 PM Patient Name: Nury Willett Visit Number: [id number] Discharge Date: 01/16/2023 02:55:00 PM ATTENTION: The Clinical Documentation Specialists (CDI) and [facility] Coding Staff appreciate your assistance in clarifying documentation. Please respond to the clarification below the line at the bottom and electronically sign. The CDI & [facility] Coding staff will review the response and follow-up if needed. Please note: Queries are made part of the Legal Health Record. If you have any questions, please contact the author of this message via ITS. Dr. Machelle Green Cellulitis is documented 01/14 in PN and ID consult 01/14 as increasing swelling and redness to bilateral extremities left greater than right which is warm and tender to touch did have elevated white count with a component of cellulitis likely from gram-positive skin marisol. For each diagnosis, documentation must be clear to determine if the condition was present at the time of the patients inpatient admission or developed during the hospital stay. Additional clarification regarding the cellulitis is requested. History/Risk Factors: pt with CHF and peripheral edema noted on admission Clinical Indicators: WBC elevated 01/14 to 17,000 Treatment: MAR history report showed Rocephin IV 01/14, Ceftin IV 01/16, IV vancomycin 01/14 and 01/15. Definition of Present on Admission (POA): A diagnosis present at the time the order for admission to inpatient status was written. Please clarify if the bilateral cellulitis was POA [ ] Y = Yes, the condition was present at the time of the order for inpatient admission. [ ] N = No, the condition was not present at the time of the order for inpatient admission. [ ] W = Clinically undetermined if the condition was present at the time of the order for inpatient admission. (Template Last Revised: August 2020) MTDD
== END 2023-01-16 14:55 | disposition home health service (06) | DRG 280 ==
LOC: EC 14:28 → 3SCARD 18:38
PROVIDERS: ADMIT Internal Medicine; ATTEND Internal Medicine
PROC: 5A2204Z Restoration of Cardiac Rhythm, Single (ICD-10-PCS; principal; 2023-01-15)
DX: I47.1 Supraventricular tachycardia (principal); A41.9 Sepsis, unspecified organism; I21.A1 Myocardial infarction type 2; I50.33 Acute on chronic diastolic (congestive) heart failure; L03.115 Cellulitis of right lower limb; L03.116 Cellulitis of left lower limb; F32.A Depression, unspecified; F41.9 Anxiety disorder, unspecified; I11.0 Hypertensive heart disease with heart failure; I45.10 Unspecified right bundle-branch block; J44.9 Chronic obstructive pulmonary disease, unspecified; K21.9 Gastro-esophageal reflux disease without esophagitis; I35.1 Nonrheumatic aortic (valve) insufficiency; M19.90 Unspecified osteoarthritis, unspecified site; W19.XXXA Unspecified fall, initial encounter; Z79.82 Long term (current) use of aspirin; Z79.899 Other long term (current) drug therapy; Z82.49 Family history of ischemic heart disease and other diseases of the circulatory system; Z90.710 Acquired absence of both cervix and uterus; Z88.8 Allergy status to other drugs, medicaments and biological substances
CPT/HCPCS: 71046; 80048; 80053; 80061; 81003; 83605; 83735; 84145; 84443; 84484; 85025; 85610; 85730; 86140; 93005; 93306; 96365; 96366; 99285

== ENCOUNTER 2023-05-10 10:23 | Inpatient (IN) | payer MEDICARE, OTHER ==
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
[2023-05-10 12:03] LABS: Basophils % (A) 0 %; Eosinophils # (A) 0.1 k/uL (0-0.7); Eosinophils % (A) 0 %; HCT 32.1 % (34.0-46.0); HGB 10.2 gm/dL (11.4-16.0); Hypochromasia Moderate; Lymphocytes # (A) 1.4 k/uL (1.0-4.8); Lymphocytes % (A) 7 %; MCH 26.3 pg (25.0-35.0); MCHC 31.9 g/dL (31.0-37.0); MCV 82.5 fL (80.0-100.0); Mean Platelet Volume 8.1; Monocytes # (A) 1.6 k/uL (0-1.0); Monocytes % (A) 8 %; Neutrophils # (A) 17.6 k/uL (1.3-7.7); Neutrophils % (A) 83 %; Platelet Count 310 k/uL (150-450); RBC 3.89 m/uL (3.80-5.40); RDW 15.8 % (11.5-15.5); WBC 21.2 k/uL (3.8-10.6)
[2023-05-10 12:07] LABS: ALT 21 U/L (4-34); AST 30 U/L (14-36); African American GFR (CKD) >90 (>60 ml/min/1.73 sqM); Albumin 2.7 g/dL (3.5-5.0); Alkaline Phosphatase 68 U/L (38-126); Anion Gap 11 mmol/L; Blood Urea Nitrogen 17 mg/dL (7-17); Calcium 8.5 mg/dL (8.4-10.2); Carbon Dioxide 24 mmol/L (22-30); Chloride 104 mmol/L (98-107); Glucose 82 mg/dL (74-99); Non-African American GFR(CKD) 85 (>60 ml/min/1.73 sqM); Potassium 3.5 mmol/L (3.5-5.1); Sodium 139 mmol/L (137-145); Total Bilirubin 1.1 mg/dL (0.2-1.3); Total Protein 5.3 g/dL (6.3-8.2)
[2023-05-10] MEDS: fentaNYL (PF) 50 MCG/ML 2 ML AMP IVP STA (12:37)
[2023-05-10] MEDS ORDERED: NALOXONE 0.4 MG/ML 1 ML VIAL IV PRN (13:08)
[2023-05-10] MEDS ORDERED: VANCOMYCIN IV PER PHARMACY 1 EACH MISC MISCELLANE PRN (13:12)
--- NOTE | 2023-05-10 13:45 | XR ---
EXAMINATION TYPE: XR chest 2V DATE OF EXAM: 05/10/2023 COMPARISON: NONE HISTORY: Shortness of breath TECHNIQUE: Frontal and lateral views of the chest are obtained. FINDINGS: Scattered senescent parenchymal changes noted. Hyperinflation compatible with COPD. Pulmonary venous congestion without overt failure. Increased density left upper lobe in a rounded con figuration as well as right infrahilar region may reflect developing infiltrate. Underlying mass is n ot excluded. Consider CT correlation. Heart size is stable. Mediastinal structures are stable and grossly unremarkable. No evidence for hilar prominence. Degenerative changes dorsal spine. IMPRESSION: 1. Pulmonary venous congestion without overt failure. Increased density left upper lobe in a rounded configuration as well as right infrahilar region may reflect developing infiltrate. Underlying mass i s not excluded. Consider CT correlation.
[2023-05-10] MEDS: VANCOMYCIN 1,500 MG in SODIUM CHLORIDE 0.9% 500 ML 500 ML IVPB ONE (14:14)
[2023-05-10] MEDS: HYDROcodone/APAP 10-325MG 1 EACH TAB PO PRN (14:27)
[2023-05-10] MEDS: SODIUM CHLORIDE 0.9% 1,000 ML IV SCH (14:29)
[2023-05-10] MEDS: GABAPENTIN 300 MG CAP PO SCH (15:50)
[2023-05-10] MEDS ORDERED: MECLIZINE 25 MG TAB PO PRN (16:05)
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
[2023-05-10] MEDS: HYDROCORTISONE SUCCINATE 100 MG/2 ML VIAL IV SCH (17:59)
[2023-05-10 19:17] LABS: Appearance,Urine Clear (Clear); Bilirubin,Urine Negative (Negative); Blood,Urine Small (Negative); Color,Urine Yellow; Glucose,Urine (UA) 4+ (Negative); Ketones,Urine 1+ (Negative); Leukocyte Esterase,Urine Negative (Negative); Mucus,Urine Occasional /hpf; Nitrite,Urine Negative (Negative); PH, Urine 5.5 (5.0-8.0); Protein,Urine Trace (Negative); RBC,Urine 9 /hpf (0-5); Specific Gravity,Urine 1.035 (1.001-1.035); Squamous Epithelial Cell,Urine 1 /hpf (0-4); WBC,Urine 5 /hpf (0-5)
[2023-05-10] MEDS: HEPARIN SODIUM,PORCINE 5,000 UNIT/ML 1 ML VIAL SQ SCH (20:05)
--- NOTE | 2023-05-10 22:07 | HP ---
HISTORY AND PHYSICAL CHIEF COMPLAINTS: Right ankle fracture and hypotension. HISTORY OF PRESENT ILLNESS: This is a 73-year-old woman with a past medical history of multiple medical problems including asthma and history of IgG4-related lung disease, recently had a right ankle fracture. The patient apparently went to [facility], and reduction and anesthesia was done. Subsequently, the patient was hypotensive, and the patient was started on Levophed drip and was maintained till earlier this morning. Because of the complications, the patient was sent to [facility] and admitted for further evaluation. Currently, the patient's blood pressure has improved, but the white count is elevated up to 21.2, and the patient is being closely monitored at this time. There is no history of any fever, rigor, or chills at this time. PAST MEDICAL HISTORY: History of asthma, GI bleed, and history of IgG4-related lung disease diagnosed after right upper lobe lung biopsy. Rest of the history and rest of the chart are also reviewed. HOME MEDICATIONS: Reviewed include meclizine. Doses and rest of the medications are reviewed. ALLERGIES: Reviewed include ketorolac. Rest of the allergies are noted. FAMILY HISTORY: History of cancer in the family. SOCIAL HISTORY: No history of smoking or alcohol intake. REVIEW OF SYSTEMS: Fourteen-point review is negative except as mentioned earlier. PHYSICAL EXAMINATION: VITAL SIGNS: Pulse 65, blood pressure 112/58, respirations 17. HEENT: Conjunctivae are normal. NECK: No jugular venous distention. CARDIOVASCULAR: S1 and S2 muffled. RESPIRATORY: Breath sounds diminished at the bases. Few scattered rhonchi and crackles. ABDOMEN: Soft and nontender. LEGS: Status post right ankle fracture dislocation. NERVOUS SYSTEM: No focal deficits. SKIN: No ulcers or rashes. JOINTS: No active deforming arthropathy. LABORATORY DATA: At this time, WBC 21.2. Rest of the labs are noted. X-ray reviewed. ASSESSMENT: 1. Status post fall and closed right trimalleolar fracture. 2. Hypotension. Rule out sepsis. 3. Elevated WBC. 4. History of asthma. 5. History of IgG4-related lung disease, biopsy-proven. 6. History of degenerative joint disease. 7. History of gastrointestinal bleed. 8. Multiple complex medical issues. RECOMMENDATIONS AND DISCUSSION: In this 73-year-old woman presented with multiple complex medical issues, we will monitor the patient closely. I would initiate broad-spectrum IV antibiotics and stress dose hydrocortisone. Otherwise, Protonix. I would recommend a full cardiac workup including 2D echo with Doppler also. Pulmonary consultation. Orthopedic is also going to evaluate the patient. Pain management. Overall prognosis is extremely guarded because of the multiple complex medical issues. Further recommendations to follow. See orders for the details. MMODL / IJN: [id number] /
[2023-05-11] MEDS: PANTOPRAZOLE 40 MG TABLET PO SCH (05:11)
[2023-05-11] MEDS: VANCOMYCIN 1,500 MG in SODIUM CHLORIDE 0.9% 500 ML 500 ML IVPB SCH (06:57)
[2023-05-11] MEDS: POTASSIUM CHLORIDE ER 10 MEQ TAB.ER.PRT PO SCH (08:30)
[2023-05-11] MEDS: PARoxetine 20 MG TAB PO SCH (08:30)
[2023-05-11] MEDS: ASPIRIN 81 MG PO SCH (08:30)
[2023-05-11] MEDS ORDERED: predniSONE 5 MG TAB PO SCH (09:00)
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
[2023-05-11] MEDS: DAPAGLIFLOZIN PROPANEDIOL 10 MG TABLET PO SCH (09:14)
[2023-05-11 09:57] LABS: Basophils % (A) 0 %; Eosinophils % (A) 0 %; HCT 39.4 % (34.0-46.0); HGB 11.8 gm/dL (11.4-16.0); Hypochromasia Marked; Lymphocytes # (A) 1.6 k/uL (1.0-4.8); Lymphocytes % (A) 8 %; MCH 25.7 pg (25.0-35.0); MCV 85.7 fL (80.0-100.0); Mean Platelet Volume 7.7; Monocytes # (A) 0.9 k/uL (0-1.0); Monocytes % (A) 5 %; Neutrophils # (A) 17.5 k/uL (1.3-7.7); Neutrophils % (A) 86 %; Platelet Count 354 k/uL (150-450); RDW 15.8 % (11.5-15.5); WBC 20.3 k/uL (3.8-10.6)
[2023-05-11 10:18] LABS: ALT 25 U/L (4-34); AST 35 U/L (14-36); African American GFR (CKD) >90 (>60 ml/min/1.73 sqM); Alkaline Phosphatase 78 U/L (38-126); Anion Gap 14 mmol/L; Blood Urea Nitrogen 14 mg/dL (7-17); Carbon Dioxide 18 mmol/L (22-30); Chloride 106 mmol/L (98-107); Glucose 87 mg/dL (74-99); Non-African American GFR(CKD) >90 (>60 ml/min/1.73 sqM); Potassium 3.8 mmol/L (3.5-5.1); Sodium 138 mmol/L (137-145); Total Bilirubin 0.8 mg/dL (0.2-1.3)
--- NOTE | 2023-05-11 13:00 | CT ---
EXAMINATION TYPE: CT ankle RT wo con DATE OF EXAM: 05/11/2023 COMPARISON: X-ray 05/09/2003 HISTORY: Ankle fracture, posterior malleolus CT DLP: 84.3 mGycm TECHNIQUE: Axial and sagittal and coronal images are obtained. FINDINGS: There is a displaced fracture of the medial malleolus and oblique displaced fracture of the distal fi bula. There is a mildly displaced fracture involving the posterior tibia. Findings compatible with tr imalleolar fracture. Plantar calcaneal spur with arthropathy within the intertarsal joints including the talonavicular terell nt and tarsal metatarsal joints. No definite erosion. Diffuse soft tissue edema noted. IMPRESSION: 1. Trimalleolar displaced fracture.
[2023-05-11 13:32] VITALS: BMI 39.6
--- NOTE | 2023-05-11 13:47 | XR ---
EXAMINATION TYPE: XR abdomen 1V DATE OF EXAM: 05/11/2023 COMPARISON: NONE HISTORY: Pain TECHNIQUE: One view abdominal series FINDINGS: The osseous structures are intact. The bowel gas pattern is nonspecific. Surgical clips right upper quadrant. SI joint arthropathy. Hip arthropathy. Hypertrophic and degenerative changes spine. Calcifi cations in the pelvis are likely vascular. IMPRESSION: 1. Nonspecific abdomen.
--- NOTE | 2023-05-11 15:36 | CA ---
Transthoracic Echo Report Name: Nury Willett Age: 73 Gender: F : 1950 Exam Date: 05/11/2023 14:44 Exam Location: [place] [facility] Ht (in): 59 Wt (lb): 196 Ordering Physician: Jalen Main MD Attending/Referring Phys: Associate Spa Director Darby Dalton RDCS Procedure CPT: Indications: Hypotension Cardiac Hx: Technical Quality: Fair Contrast 1: Total Dose (mL): Contrast 2: Total Dose (mL): MEASUREMENTS (Male / Female) Normal Values 2D ECHO LV Diastolic Diameter PLAX 4.3 cm 4.2 - 5.9 / 3.9 - 5.3 cm LV Systolic Diameter PLAX 3.0 cm IVS Diastolic Thickness 1.4 cm 0.6 - 1.0 / 0.6 - 0.9 cm LVPW Diastolic Thickness 1.1 cm 0.6 - 1.0 / 0.6 - 0.9 cm LV Relative Wall Thickness 0.6 RV Internal Dim ED PLAX 3.1 cm LA Volume 32.9 cm??? 18 - 58 / 22 - 52 cm??? LA Volume Index 16.7 cm???/m??? 16 - 28 cm???/m??? M-MODE Aortic Root Diameter MM 2.8 cm LA Systolic Diameter MM 3.8 cm LA Ao Ratio MM 1.4 AV Cusp Separation MM 1.7 cm DOPPLER AV Peak Velocity 168.5 cm/s AV Peak Gradient 11.4 mmHg AV Mean Velocity 109.9 cm/s AV Mean Gradient 5.6 mmHg AV Velocity Time Integral 33.9 cm LVOT Peak Velocity 126.5 cm/s LVOT Peak Gradient 6.4 mmHg LVOT Velocity Time Integral 27.4 cm MV Area PHT 4.4 cm??? Mitral E Point Velocity 138.1 cm/s Mitral A Point Velocity 95.4 cm/s Mitral E to A Ratio 1.4 MV Deceleration Time 171.6 ms MV E' Velocity 6.3 cm/s Mitral E to MV E' Ratio 22.0 FINDINGS Left Ventricle Moderately increased left ventricular wall thickness. Left ventricular cavity size normal. Normal left ventricular systolic function with no obvious regional wall motion abnormalities. Left ventricular ejection fraction is estimated at 55-60 %. Right Ventricle Normal right ventricular size and function. Right ventricular systolic pressure within normal limits. Right Atrium Normal right atrial size. Left Atrium Normal left atrial size. Mitral Valve Structurally normal mitral valve. No mitral stenosis, regurgitation or prolapse. Aortic Valve No aortic valve stenosis or regurgitation. Tricuspid Valve Structurally normal tricuspid valve. Mild tricuspid regurgitation. Pulmonic Valve Trace pulmonic regurgitation. Pericardium No pericardial effusion. Aorta Normal size aortic root and proximal ascending aorta. CONCLUSIONS Normal LV function Previewed by: Dr. Aaron Gonsalez MD (Electronically Signed) Final Date: 11 May 2023 15:35
--- NOTE | 2023-05-11 15:38 | XR ---
EXAMINATION TYPE: XR ankle limited LT DATE OF EXAM: 05/11/2023 COMPARISON: NONE HISTORY: Pain FINDINGS: Three views of the ankle demonstrate the ankle mortise to be intact and symmetric. The joint spaces are preserved. The osseous structures are intact. Diffuse osteopenia. Marginal spurring of the tibi a. There is a plantar calcaneal spur. Diffuse soft tissue edema. IMPRESSION: 1. No definite acute fracture or dislocation, if symptoms persist follow-up study in 7 to 10 days wou ld be suggested. 2. Diffuse soft tissue edema. If high clinical concern for fracture consider follow-up CT scan.
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
[2023-05-11 16:10] LABS: Glucose,Whole Blood 137 mg/dL (70-110)
[2023-05-11] MEDS: HYDROmorphone 0.5 MG/0.5 ML SYRINGE IVP PRN (16:24)
--- NOTE | 2023-05-11 16:56 | P.PN ---
Subjective Progress Note Date: 05/11/23 Principal diagnosis: Reason for follow-up visit leukocytosis Patient is a 73-year-old female with a past medical history significant for asthma and reflux GI bleed IgG4 related lung disease patient apparently sustained a fall in the bathroom subsequently developing right foot drop and significant pain to the right ankle area, patient did have evidence of right ankle bimalleolar fracture also noticed to have elevated white count and low-grade fever. On today's evaluation that is 05/11/2023 the patient remains to be afebrile, the patient is breathing comfortably on room air and no need for oxygen. The patient denies shortness of breath denies any chest pain however did have occasional dry cough, patient denies nausea/vomiting or diarrhea and no abdominal pain. Still complaining of pain to the right ankle area Patient white count is 20.3, creatinine 0.59 Objective - Vital Signs Vital signs: Vital Signs Temp 98 F 05/11/23 12:00 Pulse 79 05/11/23 12:00 Resp 16 05/11/23 12:00 BP 107/55 05/11/23 12:00 Pulse Ox 93 L 05/11/23 12:00 FiO2 Intake & Output 05/10/23 05/11/23 05/11/23 18:59 06:59 18:59 Intake Total 240 Output Total 300 475 Balance -300 -235 Weight 88.904 kg 88.904 kg Intake: Oral 240 Output: Urine 300 475 Other: Voiding Method Indwelling Catheter - Exam GENERAL DESCRIPTION: An elderly female lying in bed in no distress RESPIRATORY SYSTEM: Unlabored breathing , clear to auscultation anteriorly HEART: S1 S2 regular rate and rhythm , ABDOMEN: Soft , no tenderness EXTREMITIES: Right ankle is currently in cast left leg swelling redness slightly decreased - Labs CBC & Chem 7: 05/11/23 09:04 05/11/23 09:04 Labs: Abnormal Lab Results - Last 24 Hours (Table) 05/10/23 05/11/23 05/11/23 Range/Units 18:43 09:04 09:04 WBC 20.3 H (3.8-10.6) k/uL MCHC 30.0 L (31.0-37.0) g/dL RDW 15.8 H (11.5-15.5) % Neutrophils # 17.5 H (1.3-7.7) k/uL Carbon Dioxide 18 L (22-30) mmol/L Total Protein 6.0 L (6.3-8.2) g/dL Albumin 3.0 L (3.5-5.0) g/dL Urine Protein Trace H (Negative) Urine Glucose (UA) 4+ H (Negative) Urine Ketones 1+ H (Negative) Urine Blood Small H (Negative) Urine RBC 9 H (0-5) /hpf Urine Mucus Occasional H (None) /hpf Assessment and Plan (1) Leukocytosis Current Visit: Yes Status: Acute Code(s): D72.829 - ELEVATED WHITE BLOOD CELL COUNT, UNSPECIFIED SNOMED Code(s): 602580692 Plan: 1patient was in the hospital with right ankle fracture after a fall patient noted to be hypotensive requiring pressor support and steroids also noted to have elevated white count questionably reactive to the recent surgery has the patient not running any fever does not look toxic, she did have some abnormality on the chest x-ray not clinically behaving as pneumonia also noticed to have a mild cellulitis to the left lower extremity and did have a negative UA 2 inflammatory markers and blood cultures currently pending 3patient to continue with Rocephin and vancomycin while waiting for the culture to finalize Dictation was produced using [employer] dictation software. please excuse any grammatical, word or spelling errors. Time with Patient: Less than 30
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
--- NOTE | 2023-05-12 02:20 | PN ---
PROGRESS NOTE DATE OF SERVICE: 05/11/2023 SUBJECTIVE: This is a 73-year-old woman who was admitted with right ankle fracture and hypotension, is being closely monitored. Sepsis suspected. Ankle CT scan was done. Multiple consultants are following the patient closely. Ankle CT scan showed trimalleolar displaced fracture. The cultures are negative so far. PAST MEDICAL HISTORY: Reviewed. REVIEW OF SYSTEMS: A 14-point review is negative except as mentioned earlier. CURRENT MEDICATIONS: Reviewed include Rocephin, dose and rest of medications noted. PHYSICAL EXAMINATION: VITAL SIGNS: Pulse 79, blood pressure 107/55, respirations 16. CHEST: Scattered rhonchi. ABDOMEN: Soft, nontender, obese. LEGS: Status post right ankle fracture. NERVOUS SYSTEM: No focal deficits. CARDIOVASCULAR: S1, S2 normal. LABORATORY DATA: WBC 20.3. ASSESSMENT: 1. Status post fall and closed right trimalleolar fracture. 2. Hypotension, elevated WBC, possible sepsis, present on admission. 3. History of asthma. 4. History of IgG4-related lung disease, biopsy-proven. 5. History of DJD. 6. History of GI bleed. 7. Abdominal distention. 8. Multiple complex medical issues. RECOMMENDATIONS AND DISCUSSION: Recommended to continue current management, continue symptomatic treatment, otherwise at this time I would recommend follow with multiple consultants. The patient is on stress dose steroids. Blood pressure is improved significantly. Cultures are negative so far. Further recommendations to follow. White count is still elevated, which could be partly due to steroids, see orders for details. MMODL / IJN: [id number] /
[2023-05-12 11:33] LABS: Basophils % (A) 0 %; Eosinophils % (A) 0 %; HCT 35.8 % (34.0-46.0); HGB 10.6 gm/dL (11.4-16.0); Hypochromasia Marked; Lymphocytes # (A) 0.8 k/uL (1.0-4.8); Lymphocytes % (A) 5 %; MCH 25.3 pg (25.0-35.0); MCHC 29.6 g/dL (31.0-37.0); MCV 85.6 fL (80.0-100.0); Monocytes % (A) 6 %; Neutrophils # (A) 14.9 k/uL (1.3-7.7); Neutrophils % (A) 88 %; Platelet Count 291 k/uL (150-450); RBC 4.19 m/uL (3.80-5.40); RDW 15.8 % (11.5-15.5)
[2023-05-12 11:55] LABS: ALT 23 U/L (4-34); AST 27 U/L (14-36); African American GFR (CKD) >90 (>60 ml/min/1.73 sqM); Albumin 2.6 g/dL (3.5-5.0); Alkaline Phosphatase 77 U/L (38-126); Anion Gap 9 mmol/L; Blood Urea Nitrogen 16 mg/dL (7-17); Carbon Dioxide 21 mmol/L (22-30); Chloride 109 mmol/L (98-107); Glucose 132 mg/dL (74-99); Non-African American GFR(CKD) >90 (>60 ml/min/1.73 sqM); Potassium 3.5 mmol/L (3.5-5.1); Sodium 139 mmol/L (137-145); Total Bilirubin 0.3 mg/dL (0.2-1.3); Total Protein 5.4 g/dL (6.3-8.2)
--- NOTE | 2023-05-12 12:05 | P.PN ---
Subjective Progress Note Date: 05/12/23 Principal diagnosis: Hypotension, leukocytosis. Pulmonary consult dated 05/11/2023. 73-year-old female who was transferred from [facility], to [facility]. At the outside facility, the patient apparently sustained a fall, and injured her right foot and ankle. She apparently developed a bimalleolar fracture on the right, and had a closed reduction of her right ankle, at the outside hospital, with ketamine and Versed. She apparently developed subsequent hypotension, and was noted to have an elevated white count, and was transferred here. In addition, the patient was started on norepinephrine. The patient will need a lipid reduction internal fixation of the ankle, in the near future. Currently, she is seen in room 381. She's getting saline at 20 mL an hour. She's on room air. She continues on vancomycin and Rocephin. A pro-calcitonin level checked. Most recent blood pressures are all within the normal range, and her mean arterial pressures above 65. White count 20.3, hemoglobin 11.8, hematocrit 39.4, and platelet count 354,000. Sodium 138, potassium 3.8, chlorides 106, CO2 18, anion gap 14, BUN 14, creatinine 0.59. The rest of the labs are normal. Troponin was negative 2. TSH was normal. Albumin was 3. UA does not reveal any evidence of urinary tract infection. The patient's chest x-ray shows some pulmonary venous co ngestion, without overt failure. In addition, there is a lesion noted in the left upper lobe. This will need follow-up. Progress note dated 05/12/2023. The patient is seen today in room 381. She is on room air. She's getting saline at 60 mL an hour. Her pro-calcitonin level was 0.67. He was seen by infectious diseases, and placed on Rocephin and vancomycin. The source of her infection, is not clear to me. Labs today include a white count 17, hemoglobin 10.6, hematocrit 35.8, and a platelet count of 291,000. Sodium 139, potassium 3.5, chlorides 109, CO2 21, BUN 16, creatinine 0.53. Albumin is 2.6. Objective - Vital Signs Vital signs: Vital Signs Temp 98.0 F 05/12/23 08:00 Pulse 76 05/12/23 08:00 Resp 18 05/12/23 08:00 BP 160/74 05/12/23 08:00 Pulse Ox 97 05/12/23 08:00 FiO2 Intake & Output 05/11/23 05/12/23 05/12/23 18:59 06:59 18:59 Intake Total 720 762 120 Output Total 775 1100 Balance -55 -338 120 Weight 88.904 kg Intake: Oral 720 762 120 Output: Urine 775 1100 Uretheral (Lynn) 200 Other: Voiding Method Indwelling Catheter Indwelling Catheter Indwelling Catheter - Exam No acute distress, oriented 3. Currently, the patient's on room air. Saturations are excellent. HEENT examination is grossly unremarkable. Mucous membranes are moist. No oral lesions. Neck supple. Full range of motion. No adenopathy thyromegaly or neck vein distention. Cardiovascular examination reveals regular rhythm rate. S1-S2 normal. No S3 or S4. No discernible murmur noted. Heart rate is 73 bpm. Heart sounds are distant. Lungs reveal mostly clear breath sounds. Very minimal rhonchi. No crackles or wheezes. Abdomen soft bowel sounds are heard. No masses or tenderness. Room air saturation is 96%. Extremities are intact. No cyanosis clubbing or edema. Right ankle and foot is wrapped. Skin is without rash or lesion. Neurologic examination is brief but nonfocal. - Labs CBC & Chem 7: 05/12/23 11:00 05/12/23 11:00 Labs: Abnormal Lab Results - Last 24 Hours (Table) 05/11/23 05/11/23 05/12/23 Range/Units 09:04 16:08 11:00 WBC (3.8-10.6) k/uL Hgb (11.4-16.0) gm/dL MCHC (31.0-37.0) g/dL RDW (11.5-15.5) % Neutrophils # (1.3-7.7) k/uL Lymphocytes # (1.0-4.8) k/uL Chloride 109 H (98-107) mmol/L Carbon Dioxide 21 L (22-30) mmol/L Glucose 132 H (74-99) mg/dL POC Glucose (mg/dL) 137 H (70-110) mg/dL Total Protein 5.4 L (6.3-8.2) g/dL Albumin 2.6 L (3.5-5.0) g/dL Procalcitonin 0.67 H (0.02-0.09) ng/mL 05/12/23 Range/Units 11:00 WBC 17.0 H (3.8-10.6) k/uL Hgb 10.6 L (11.4-16.0) gm/dL MCHC 29.6 L (31.0-37.0) g/dL RDW 15.8 H (11.5-15.5) % Neutrophils # 14.9 H (1.3-7.7) k/uL Lymphocytes # 0.8 L (1.0-4.8) k/uL Chloride (98-107) mmol/L Carbon Dioxide (22-30) mmol/L Glucose (74-99) mg/dL POC Glucose (mg/dL) (70-110) mg/dL Total Protein (6.3-8.2) g/dL Albumin (3.5-5.0) g/dL Procalcitonin (0.02-0.09) ng/mL Microbiology - Last 24 Hours (Table) 05/10/23 16:37 Blood Culture - Preliminary Blood Assessment and Plan Assessment: Status post fall, and bi-malleolar fracture of the right ankle. Hypotension, of unclear etiology, resolved. Possible infection, source unknown. History of asthma. History of GI bleed. History of GERD. History of osteoarthritis. Previous right upper lobectomy. Urinary incontinence. History of colitis. Plan: Plan dated 05/11/2023. The patient's most recent blood pressures are all within normal range. Not exactly sure why the patient was hypotensive, and required norepinephrine. The patient does have an elevated white blood count. We have ordered a pro- calcitonin level but is not back as yet. Currently, the patient's on vancomycin and Rocephin. No clearcut source of infection. If the pro-calcitonin level is normal, the antibiotic should be discontinued. The patient will eventually need an open reduction internal fixation of the right ankle. Because of her prognosis is bad experience with anesthesia, the surgeons are not rushing to repair the right ankle. Plan dated 05/12/2023. The patient is seen today in room 381. She's on room air. Saturations are excellent. The patient is not having any respiratory issues at this time. The patient continues on Rocephin and vancomycin as per infectious diseases. The patient's getting saline at 60 mL an hour. Her pro-calcitonin level was 0.67. The source of her infection is not clear to me. We will continue to follow make recommendations along the way. The patient does see my partner, Dr. Salgado in our office. The patient will eventually need an open reduction internal fixation of the right ankle, but apparently has had issues with anesthesia in the past. Time with Patient: Less than 30
[2023-05-12] MEDS ORDERED: ACETAMINOPHEN IV (For NPO) 1,000 MG in EMPTY BAG 1 BAG IVPB PRN (12:25)
[2023-05-12] MEDS: VANCOMYCIN TROUGH DUE 1 EACH MISC MISCELLANE ONE (13:10)
--- NOTE | 2023-05-12 13:11 | XR ---
EXAMINATION TYPE: XR chest 1V portable DATE OF EXAM: 05/12/2023 COMPARISON: 05/10/2023 INDICATION: Pneumonia TECHNIQUE: Single frontal view of the chest is obtained. FINDINGS: The heart size is normal. The pulmonary vasculature is normal. Left lower lobe infiltrate is present silhouetting the diaphragm. Findings can be compatible with pn eumonia IMPRESSION: 1. Left lower lobe pneumonia. Follow-up is recommended
[2023-05-12] MEDS: IPRATROPIUM-ALBUTEROL 3 ML NEB INHALATION SCH (15:23)
[2023-05-12] MEDS: HYDROCORTISONE SUCCINATE 100 MG/2 ML VIAL IV SCH (21:14)
--- NOTE | 2023-05-13 01:07 | PN ---
PROGRESS NOTE DATE OF SERVICE: 05/12/2023 SUBJECTIVE: This 73-year-old woman was admitted with hypotension, also had trimalleolar fracture of the ankle on the right side. The patient has also had hypotension, infection suspect but no definite source was isolated. White count is elevated, which is showing improvement at this time. The patient had hypotension from the peripheral hospital, was on Levophed, but currently the blood pressure is noted and 2D echo showed no acute changes. PAST MEDICAL HISTORY: Reviewed. REVIEW OF SYSTEMS: A 14-point review is negative except as mentioned earlier. CURRENT MEDICATIONS: Reviewed include Rocephin and rest of medications noted. PHYSICAL EXAM: VITAL SIGNS: Pulse is 76, blood pressure 160/70, respirations 18. HEENT: Conjunctivae normal. NECK: No jugular venous distention. CARDIOVASCULAR: S1 and S2 muffled. RESPIRATORY: Breath sounds diminished at the bases. Few scattered rhonchi. ABDOMEN: Soft, obese. LEGS: Status post fracture of the right side. LABORATORY DATA: WBC 17, rest of the labs are noted. ASSESSMENT: 1. Status post fall and closed right trimalleolar fracture. 2. Hypotension, elevated WBC, possibly sepsis present on admission, primary unknown. 3. History of asthma. 4. History of IgG4-related lung disease, biopsy-proven. 5. History of degenerative joint disease. 6. History of GI bleed. 7. Abdominal distention. 8. Multiple complex medical issues. DISCUSSION AND RECOMMENDATIONS: Recommend to continue current management and treatment, otherwise at this time I would recommend continue the current medications. We will taper off the stress dose steroids and continue to monitor. Otherwise, guarded prognosis. Further recommendations to follow. See orders for further details. Repeat labs, closely follow with multiple consultants. PT OT evaluation, possible ECF rehab. Follow closely with orthopedic surgery. MMODL / IJN: [id number] /
[2023-05-13] MEDS: IPRATROPIUM-ALBUTEROL 3 ML NEB INHALATION PRN (11:11)
[2023-05-13] MEDS ORDERED: ARTIFICIAL TEARS-HYPROMELLOSE DROPS 15 ML BTL BOTH EYES PRN (11:32)
--- NOTE | 2023-05-13 12:49 | P.PN ---
Subjective Progress Note Date: 05/13/23 Principal diagnosis: Hypotension, leukocytosis. Pulmonary consult dated 05/11/2023. 73-year-old female who was transferred from [facility], to [facility]. At the outside facility, the patient apparently sustained a fall, and injured her right foot and ankle. She apparently developed a bimalleolar fracture on the right, and had a closed reduction of her right ankle, at the outside hospital, with ketamine and Versed. She apparently developed subsequent hypotension, and was noted to have an elevated white count, and was transferred here. In addition, the patient was started on norepinephrine. The patient will need a lipid reduction internal fixation of the ankle, in the near future. Currently, she is seen in room 381. She's getting saline at 20 mL an hour. She's on room air. She continues on vancomycin and Rocephin. A pro-calcitonin level checked. Most recent blood pressures are all within the normal range, and her mean arterial pressures above 65. White count 20.3, hemoglobin 11.8, hematocrit 39.4, and platelet count 354,000. Sodium 138, potassium 3.8, chlorides 106, CO2 18, anion gap 14, BUN 14, creatinine 0.59. The rest of the labs are normal. Troponin was negative 2. TSH was normal. Albumin was 3. UA does not reveal any evidence of urinary tract infection. The patient's chest x-ray shows some pulmonary venous co ngestion, without overt failure. In addition, there is a lesion noted in the left upper lobe. This will need follow-up. Progress note dated 05/12/2023. The patient is seen today in room 381. She is on room air. She's getting saline at 60 mL an hour. Her pro-calcitonin level was 0.67. He was seen by infectious diseases, and placed on Rocephin and vancomycin. The source of her infection, is not clear to me. Labs today include a white count 17, hemoglobin 10.6, hematocrit 35.8, and a platelet count of 291,000. Sodium 139, potassium 3.5, chlorides 109, CO2 21, BUN 16, creatinine 0.53. Albumin is 2.6. Progress note dated 05/13/2023. 73-year-old female seen in room 381. Currently, she is on room air. She continues on vancomycin and Rocephin as per infectious diseases. Clinically, the patient appears to be relatively stable. Other than pain in the ankle, she has no complaints. No new labs today. Labs from yesterday have been reviewed. Blood and sputum analysis, is either negative or pending. Chest x-ray from yesterday reveals a left lower lobe pneumonia. The patient's pro-calcitonin level was 0.67. Objective - Vital Signs Vital signs: Vital Signs Temp 97.6 F 05/13/23 08:00 Pulse 78 05/13/23 11:26 Resp 16 05/13/23 08:00 BP 163/77 05/13/23 08:00 Pulse Ox 97 05/13/23 08:00 FiO2 Intake & Output 05/12/23 05/13/23 05/13/23 18:59 06:59 18:59 Intake Total 600 540 120 Output Total 600 1350 Balance 0 -810 120 Intake: Oral 600 540 120 Output: Urine 600 1350 Uretheral (Lynn) 525 Other: Voiding Method Indwelling Catheter Indwelling Catheter Indwelling Catheter # Bowel Movements 1 - Exam No acute distress, oriented 3. Currently, the patient's on room air. S aturations are excellent. HEENT examination is grossly unremarkable. Mucous membranes are moist. No oral lesions. Neck supple. Full range of motion. No adenopathy thyromegaly or neck vein distention. Cardiovascular examination reveals regular rhythm rate. S1-S2 normal. No S3 or S4. No discernible murmur noted. Heart rate is 78 bpm. Heart sounds are distant. Lungs reveal mostly clear breath sounds. Very minimal rhonchi. No crackles or wheezes. Abdomen soft bowel sounds are heard. No masses or tenderness. Room air saturation is 97 %. Extremities are intact. No cyanosis clubbing or edema. Right ankle and foot is wrapped. Skin is without rash or lesion. Neurologic examination is brief but nonfocal. - Labs CBC & Chem 7: 05/12/23 11:00 05/12/23 11:00 Labs: Microbiology - Last 24 Hours (Table) 05/12/23 16:31 Gram Stain - Preliminary Sputum Sputum Culture - Preliminary 05/10/23 16:37 Blood Culture - Preliminary Blood Assessment and Plan Assessment: Status post fall, and bi-malleolar fracture of the right ankle. Hypotension, likely related to infection/sepsis, resolved. Pneumonia, left lower lobe. History of asthma. History of GI bleed. History of GERD. History of osteoarthritis. Previous right upper lobectomy. Urinary incontinence. History of colitis. Plan: Plan dated 05/11/2023. The patient's most recent blood pressures are all within normal range. Not exa ctly sure why the patient was hypotensive, and required norepinephrine. The patient does have an elevated white blood count. We have ordered a pro- calcitonin level but is not back as yet. Currently, the patient's on vancomycin and Rocephin. No clearcut source of infection. If the pro-calcitonin level is normal, the antibiotic should be discontinued. The patient will eventually need an open reduction internal fixation of the right ankle. Because of her prognosis is bad experience with anesthesia, the surgeons are not rushing to repair the right ankle. Plan dated 05/12/2023. The patient is seen today in room 381. She's on room air. Saturations are excellent. The patient is not having any respiratory issues at this time. The patient continues on Rocephin and vancomycin as per infectious diseases. The patient's getting saline at 60 mL an hour. Her pro-calcitonin level was 0.67. The source of her infection is not clear to me. We will continue to follow make recommendations along the way. The patient does see my partner, Dr. Salgado in our office. The patient will eventually need an open reduction internal fixation of the right ankle, but apparently has had issues with anesthesia in the past. Plan dated 05/13/2023. The patient continues on Rocephin and vancomycin as per infectious diseases. The patient's chest x-ray reveals a left lower lobe pneumonia. The patient's pro-calcitonin level was elevated at 0.67. Initially, the patient was transferred, because of an elevated white count, and hypotension. She's been stable here. We will continue to follow make recommendations along the way. Culture data is as far negative. Follow-up chest x-ray in a few days. She will eventually need an open reduction and internal fixation of the right ankle. Time with Patient: Less than 30
[2023-05-13] MEDS: METOPROLOL SUCCINATE (ER) 25 MG TAB.ER.24H PO SCH (12:54)
--- NOTE | 2023-05-13 13:32 | PN ---
PROGRESS NOTE DATE OF SERVICE: 05/13/2023 SUBJECTIVE: This is a 73-year-old woman, who was admitted with hypotension, also right ankle fracture. The patient is being closely monitored. No chest pain. No palpitation. No fever. PHYSICAL EXAMINATION: VITAL SIGNS: Pulse is 79, blood pressure 160/77, respirations 16. CHEST: Bilateral scattered rhonchi. ABDOMEN: Soft. NERVOUS SYSTEM: Nonfocal. LABORATORY DATA: Reviewed. ASSESSMENT: 1. Status post fall and closed right trimalleolar fracture. 2. Hypotension and elevated WBC, possibly sepsis present on admission, primary unknown. 3. History of asthma. 4. History of IgG4-related lung disease with biopsy proven. 5. History of degenerative joint disease. 6. History of gastrointestinal bleed. 7. Abdominal distention. 8. Multiple complex medical issues. RECOMMENDATIONS: Recommend to continue current medications. Continue symptomatic treatment. Otherwise, at this time, I would recommend to repeat labs. We will resume the prednisone as at home. Continue to monitor. Further recommendations to follow. MMODL / IJN: [id number] /
[2023-05-13 13:52] LABS: ALT 27 U/L (4-34); AST 35 U/L (14-36); African American GFR (CKD) >90 (>60 ml/min/1.73 sqM); Albumin 2.9 g/dL (3.5-5.0); Alkaline Phosphatase 80 U/L (38-126); Anion Gap 10 mmol/L; Blood Urea Nitrogen 15 mg/dL (7-17); Carbon Dioxide 21 mmol/L (22-30); Chloride 108 mmol/L (98-107); Glucose 82 mg/dL (74-99); Non-African American GFR(CKD) >90 (>60 ml/min/1.73 sqM); Potassium 3.8 mmol/L (3.5-5.1); Sodium 139 mmol/L (137-145); Total Bilirubin 0.4 mg/dL (0.2-1.3); Total Protein 5.9 g/dL (6.3-8.2)
[2023-05-13 13:57] LABS: Basophils # (A) 0.1 k/uL (0-0.2); Basophils % (A) 0 %; Eosinophils # (A) 0.1 k/uL (0-0.7); Eosinophils % (A) 1 %; HCT 37.6 % (34.0-46.0); HGB 11.8 gm/dL (11.4-16.0); Hypochromasia Marked; Lymphocytes # (A) 1.3 k/uL (1.0-4.8); Lymphocytes % (A) 8 %; MCH 26.7 pg (25.0-35.0); MCHC 31.5 g/dL (31.0-37.0); MCV 84.9 fL (80.0-100.0); Mean Platelet Volume 10.7; Monocytes % (A) 6 %; Neutrophils % (A) 84 %; Platelet Count 254 k/uL (150-450); RBC 4.43 m/uL (3.80-5.40); RDW 15.8 % (11.5-15.5); WBC 15.6 k/uL (3.8-10.6)
--- NOTE | 2023-05-13 14:28 | P.PN ---
Subjective Progress Note Date: 05/12/23 Principal diagnosis: Reason for follow-up visit leukocytosis Patient is a 73-year-old female with a past medical history significant for asthma and reflux GI bleed IgG4 related lung disease patient apparently sustained a fall in the bathroom subsequently developing right foot drop and significant pain to the right ankle area, patient did have evidence of right ankle bimalleolar fracture also noticed to have elevated white count and low-grade fever. On today's evaluation that is 05/12/2023 the patient continues to be afebrile, the patient is breathing comfortably on room air and denies any shortness of breath, the patient denies chest pain however complaining of some cough and bringing up some yellow sputum, patient denies abdominal pain, no nausea/vomiting or diarrhea. Still complaining of pain to the right ankle area Patient white count is is down to 17,000, creatinine 0.53, procalcitonin 0.67 Objective - Vital Signs Vital signs: Vital Signs Temp 98.1 F 05/12/23 12:00 Pulse 73 05/12/23 12:00 Resp 18 05/12/23 12:00 BP 141/65 05/12/23 12:00 Pulse Ox 95 05/12/23 12:00 FiO2 Intake & Output 05/11/23 05/12/23 05/12/23 18:59 06:59 18:59 Intake Total 720 762 360 Output Total 775 1100 300 Balance -55 -338 60 Weight 88.904 kg Intake: Oral 720 762 360 Output: Urine 775 1100 300 Uretheral (Lynn) 200 Other: Voiding Method Indwelling Catheter Indwelling Catheter Indwelling Catheter - Exam GENERAL DESCRIPTION: An elderly female lying in bed in no distress RESPIRATORY SYSTEM: Unlabored breathing , clear to auscultation anteriorly HEART: S1 S2 regular rate and rhythm , ABDOMEN: Soft , no tenderness EXTREMITIES: Right ankle is currently in cast left leg swelling redness slightly decreased - Labs CBC & Chem 7: 05/13/23 12:14 05/13/23 12:14 Labs: Abnormal Lab Results - Last 24 Hours (Table) 05/11/23 05/11/23 05/12/23 Range/Units 09:04 16:08 11:00 WBC (3.8-10.6) k/uL Hgb (11.4-16.0) gm/dL MCHC (31.0-37.0) g/dL RDW (11.5-15.5) % Neutrophils # (1.3-7.7) k/uL Lymphocytes # (1.0-4.8) k/uL Chloride 109 H (98-107) mmol/L Carbon Dioxide 21 L (22-30) mmol/L Glucose 132 H (74-99) mg/dL POC Glucose (mg/dL) 137 H (70-110) mg/dL Total Protein 5.4 L (6.3-8.2) g/dL Albumin 2.6 L (3.5-5.0) g/dL Procalcitonin 0.67 H (0.02-0.09) ng/mL 05/12/23 Range/Units 11:00 WBC 17.0 H (3.8-10.6) k/uL Hgb 10.6 L (11.4-16.0) gm/dL MCHC 29.6 L (31.0-37.0) g/dL RDW 15.8 H (11.5-15.5) % Neutrophils # 14.9 H (1.3-7.7) k/uL Lymphocytes # 0.8 L (1.0-4.8) k/uL Chloride (98-107) mmol/L Carbon Dioxide (22-30) mmol/L Glucose (74-99) mg/dL POC Glucose (mg/dL) (70-110) mg/dL Total Protein (6.3-8.2) g/dL Albumin (3.5-5.0) g/dL Procalcitonin (0.02-0.09) ng/mL Microbiology - Last 24 Hours (Table) 05/10/23 16:37 Blood Culture - Preliminary Blood Assessment and Plan (1) Leukocytosis Current Visit: Yes Status: Acute Code(s): D72.829 - ELEVATED WHITE BLOOD CELL COUNT, UNSPECIFIED SNOMED Code(s): 843291310 Plan: 1patient was in the hospital with right ankle fracture after a fall patient noted to be hypotensive requiring pressor support and steroids also noted to have elevated white count questionably reactive to the recent surgery has the pa tient not running any fever does not look toxic, she did have some abnormality on the chest x-ray not clinically behaving as pneumonia also noticed to have a mild cellulitis to the left lower extremity and did have a negative UA 2blood cultures are currently pending, patient did have approximately 0.67 3patient white count has trended down, patient to continue with Rocephin and vancomycin while waiting for the culture to finalize Dictation was produced using [email or web address] dictation software. please excuse any grammatical, word or spelling errors. Time with Patient: Less than 30
--- NOTE | 2023-05-13 14:30 | P.PN ---
Subjective Progress Note Date: 05/13/23 Principal diagnosis: Reason for follow-up visit leukocytosis Patient is a 73-year-old female with a past medical history significant for asthma and reflux GI bleed IgG4 related lung disease patient apparently sustained a fall in the bathroom subsequently developing right foot drop and significant pain to the right ankle area, patient did have evidence of right ankle bimalleolar fracture also noticed to have elevated white count and low-grade fever. On today's evaluation that is 05/13/2023 the patient denies any fever or any chills, the patient denies shortness of breath chest pain denies any worsening cough, the patient nausea/vomiting or diarrhea and no abdominal pain. Patient denies any worsening pain to the right ankle area Patient white count is is down to 15.6, creatinine 0.50, procalcitonin 0.67 Objective - Vital Signs Vital signs: Vital Signs Temp 98.2 F 05/13/23 12:00 Pulse 75 05/13/23 12:00 Resp 16 05/13/23 12:00 BP 135/71 05/13/23 12:00 Pulse Ox 95 05/13/23 12:00 FiO2 Intake & Output 05/12/23 05/13/23 05/13/23 18:59 06:59 18:59 Intake Total 600 540 120 Output Total 600 1350 Balance 0 -810 120 Intake: Oral 600 540 120 Output: Urine 600 1350 Uretheral (Lynn) 525 Other: Voiding Method Indwelling Catheter Indwelling Catheter Indwelling Catheter # Bowel Movements 1 - Exam GENERAL DESCRIPTION: An elderly female lying in bed in no distress RESPIRATORY SYSTEM: Unlabored breathing , clear to auscultation anteriorly HEART: S1 S2 regular rate and rhythm , ABDOMEN: Soft , no tenderness EXTREMITIES: Right ankle is currently in cast left leg swelling redness slightly decreased - Labs CBC & Chem 7: 05/13/23 12:14 05/13/23 12:14 Labs: Abnormal Lab Results - Last 24 Hours (Table) 05/13/23 05/13/23 Range/Units 12:14 12:14 WBC 15.6 H (3.8-10.6) k/uL RDW 15.8 H (11.5-15.5) % Neutrophils # 13.0 H (1.3-7.7) k/uL Chloride 108 H (98-107) mmol/L Carbon Dioxide 21 L (22-30) mmol/L Creatinine 0.50 L (0.52-1.04) mg/dL Total Protein 5.9 L (6.3-8.2) g/dL Albumin 2.9 L (3.5-5.0) g/dL Microbiology - Last 24 Hours (Table) 05/12/23 16:31 Gram Stain - Preliminary Sputum Sputum Culture - Preliminary 05/10/23 16:37 Blood Culture - Preliminary Blood Assessment and Plan (1) Leukocytosis Current Visit: Yes Status: Acute Code(s): D72.829 - ELEVATED WHITE BLOOD CELL COUNT, UNSPECIFIED SNOMED Code(s): 070789815 (2) Pneumonia Current Visit: No Status: Acute Code(s): J18.9 - PNEUMONIA, UNSPECIFIED ORGANISM SNOMED Code(s): 835643864 Plan: 1patient was in the hospital with right ankle fracture after a fall patient noted to be hypotensive requiring pressor support and steroids also noted to have elevated white count questionably reactive to the recent surgery has the patient not running any fever does not look toxic, she did have some abnormality on the chest x-ray not clinically behaving as pneumonia also noticed to have a mild cellulitis to the left lower extremity and did have a negative UA 2blood cultures are currently pending, patient did have approximately 0.67, sputum culture currently pending 3patient white count is trending down, patient to continue with Rocephin and vancomycin while waiting for the culture to finalize to determine her discharge antibiotics Dictation was produced using [employer] dictation software. please excuse any grammatical, word or spelling errors. Time with Patient: Less than 30
[2023-05-13] MEDS: ARTIFICIAL TEARS-HYPROMELLOSE DROPS 15 ML BTL BOTH EYES SCH (15:32)
[2023-05-13] MEDS: predniSONE 5 MG TAB PO SCH (15:32)
[2023-05-14 07:04] LABS: Anisocytosis Slight; Basophils % (A) 0 %; Eosinophils # (A) 0.3 k/uL (0-0.7); Eosinophils % (A) 3 %; HCT 35.6 % (34.0-46.0); Hypochromasia Marked; Lymphocytes # (A) 1.7 k/uL (1.0-4.8); Lymphocytes % (A) 17 %; MCV 83.8 fL (80.0-100.0); Mean Platelet Volume 8.7; Monocytes # (A) 0.9 k/uL (0-1.0); Monocytes % (A) 8 %; Neutrophils # (A) 7.2 k/uL (1.3-7.7); Neutrophils % (A) 71 %; Platelet Count 297 k/uL (150-450); RBC 4.25 m/uL (3.80-5.40); RDW 16.2 % (11.5-15.5); WBC 10.2 k/uL (3.8-10.6)
[2023-05-14 07:59] LABS: African American GFR (CKD) >90 (>60 ml/min/1.73 sqM); Anion Gap 9 mmol/L; Blood Urea Nitrogen 13 mg/dL (7-17); Calcium 8.6 mg/dL (8.4-10.2); Carbon Dioxide 22 mmol/L (22-30); Chloride 108 mmol/L (98-107); Glucose 86 mg/dL (74-99); Non-African American GFR(CKD) >90 (>60 ml/min/1.73 sqM); Potassium 3.4 mmol/L (3.5-5.1); Sodium 139 mmol/L (137-145)
--- NOTE | 2023-05-14 11:44 | P.PN ---
Subjective Progress Note Date: 05/14/23 73-year-old female who was transferred from [facility], to [facility]. At the outside facility, the patient apparently sustained a fall, and injured her right foot and ankle. She apparently developed a bimalleolar fracture on the right, and had a closed reduction of her right a nkle, at the outside hospital, with ketamine and Versed. She apparently developed subsequent hypotension, and was noted to have an elevated white count, and was transferred here. In addition, the patient was started on norepinephrine. The patient will need a lipid reduction internal fixation of t he ankle, in the near future. Currently, she is seen in room 381. She's getting saline at 20 mL an hour. She's on room air. She continues on vancomycin and Rocephin. A pro-calcitonin level checked. Most recent blood pressures are all within the normal range, and her mean arterial pressures above 65. White count 20.3, hemoglobin 11.8, hematocrit 39.4, and platelet count 354,000. Sodium 138, potassium 3.8, chlorides 106, CO2 18, anion gap 14, BUN 14, creatinine 0.59. The rest of the labs are normal. Troponin was negative 2. TSH was normal. Albumin was 3. UA does not reveal any evidence of urinary tract infection. The patient's chest x-ray shows some pulmonary venous congestion, without overt failure. In addition, there is a lesion noted in the left upper lobe. This will need follow-up. Progress note dated 05/12/2023. The patient is seen today in room 381. She is on room air. She's getting saline at 60 mL an hour. Her pro-calcitonin level was 0.67. He was seen by in fectious diseases, and placed on Rocephin and vancomycin. The source of her infection, is not clear to me. Labs today include a white count 17, hemoglobin 10.6, hematocrit 35.8, and a platelet count of 291,000. Sodium 139, potassium 3.5, chlorides 109, CO2 21, BUN 16, creatinine 0.53. Albumin is 2.6. Progress note dated 05/13/2023. 73-year-old female seen in room 381. Currently, she is on room air. She continues on vancomycin and Rocephin as per infectious diseases. Clinically, the patient appears to be relatively stable. Other than pain in the ankle, she has no complaints. No new labs today. Labs from yesterday have been reviewed. Blood and sputum analysis, is either negative or pending. Chest x-ray from yesterday reveals a left lower lobe pneumonia. The patient's pro-calcitonin level was 0.67. On today's evaluation of 05/14/2023, the patient is being seen for a follow-up. She is on room air oxygen. She has an ankle fracture and the patient is awaiting surgery. She is clinically stable and she is also hemodynamically stable. She had a fall and she injured her right foot and ankle and she has a bimalleolar fracture on the right and she had a closed reduction of the right ankle. The patient is currently stable. Blood work from today shows a WBC count of 10.2, hemoglobin of 11 and a platelet count of 97, BUN is at 30 with a creatinine of 0.5. She is on her home medications. She is also on IV Rocephin and vancomycin. The chest x-ray shows some limited atelectasis in left lung base. Had echocardiogram showed normal LV function. Objective - Vital Signs Vital signs: Vital Signs Temp 98.4 F 05/14/23 08:00 Pulse 74 05/14/23 08:41 Resp 14 05/14/23 08:00 BP 141/66 05/14/23 08:00 Pulse Ox 97 05/14/23 08:00 FiO2 Intake & Output 05/13/23 05/14/23 05/14/23 18:59 06:59 18:59 Intake Total 360 Output Total 200 1600 Balance 160 -1600 Intake: Oral 360 Output: Urine 200 1600 Uretheral (Lynn) 800 Other: Voiding Method Indwelling Catheter Indwelling Catheter Indwelling Catheter # Bowel Movements 1 - Exam No acute distress, oriented 3. Currently, the patient's on room air. Saturations are excellent. HEENT examination is grossly unremarkable. Mucous membranes are moist. No oral lesions. Neck supple. Full range of motion. No adenopathy thyromegaly or neck vein distention. Cardiovascular examination reveals regular rhythm rate. S1-S2 normal. No S3 or S4. No discernible murmur noted. Heart rate is 78 bpm. Heart sounds are distant. Lungs reveal mostly clear breath sounds. Very minimal rhonchi. No crackles or wheezes. Abdomen soft bowel sounds are heard. No masses or tenderness. Room air saturation is 97 %. Extremities are intact. No cyanosis clubbing or edema. Right ankle and foot is wrapped. Skin is without rash or lesion. Neurologic examination is brief but nonfocal. - Labs CBC & Chem 7: 05/14/23 06:25 05/14/23 06:25 Labs: Abnormal Lab Results - Last 24 Hours (Table) 05/13/23 05/13/23 05/14/23 Range/Units 12:14 12:14 06:25 WBC 15.6 H (3.8-10.6) k/uL Hgb 11.0 L (11.4-16.0) gm/dL RDW 15.8 H 16.2 H (11.5-15.5) % Neutrophils # 13.0 H (1.3-7.7) k/uL Potassium (3.5-5.1) mmol/L Chloride 108 H (98-107) mmol/L Carbon Dioxide 21 L (22-30) mmol/L Creatinine 0.50 L (0.52-1.04) mg/dL Total Protein 5.9 L (6.3-8.2) g/dL Albumin 2.9 L (3.5-5.0) g/dL 05/14/23 Range/Units 06:25 WBC (3.8-10.6) k/uL Hgb (11.4-16.0) gm/dL RDW (11.5-15.5) % Neutrophils # (1.3-7.7) k/uL Potassium 3.4 L (3.5-5.1) mmol/L Chloride 108 H (98-107) mmol/L Carbon Dioxide (22-30) mmol/L Creatinine (0.52-1.04) mg/dL Total Protein (6.3-8.2) g/dL Albumin (3.5-5.0) g/dL Microbiology - Last 24 Hours (Table) 05/10/23 16:37 Blood Culture - Preliminary Blood 05/12/23 16:31 Gram Stain - Preliminary Sputum Sputum Culture - Preliminary Assessment and Plan Plan: Status post fall, and bi-malleolar fracture of the right ankle. Hypotension, likely related to infection/sepsis, resolved. Pneumonia, left lower lobe. History of asthma. History of GI bleed. History of GERD. History of osteoarthritis. 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 Urinary incontinence. History of colitis. Plan May discontinue the antibiotics The patient presented with some leukocytosis at time of admission, which is improved. Her pro calcitonin level was at 0.67. Her urine culture has been negative. Blood cultures been negative. Suggest stopping the vancomycin. May continue the Rocephin for another 24-48 hours. Awaiting surgery.
[2023-05-14] MEDS: POLYMYXIN B-TRIMETHOPRIM SULF (10,000-1) OPHTH DROPS 10 ML BTL BOTH EYES SCH (15:13)
[2023-05-14] MEDS ORDERED: Magnesium Replacement Protocol 1 EACH MISC MISCELLANE PRN (15:42)
[2023-05-14] MEDS ORDERED: Potassium Replacement Protocol 1 EACH MISC MISCELLANE PRN (15:42)
[2023-05-14] MEDS ORDERED: TOBRAMYCIN 0.3% OPHTH DROPS 5 ML BTL BOTH EYES SCH (16:00)
[2023-05-14] MEDS: TOBRAMYCIN 0.3% OPHTH DROPS 5 ML BTL BOTH EYES SCH (16:28)
--- NOTE | 2023-05-14 17:20 | PN ---
PROGRESS NOTE DATE OF SERVICE: 05/14/2023 SUBJECTIVE: This is a 73-year-old woman, who was admitted after trimalleolar fracture and hypotension. The patient also had bilateral conjunctivitis. The blood pressure is improving significantly. No chest pain. No palpitation. PHYSICAL EXAMINATION: VITAL SIGNS: Pulse 72, blood pressure 138/69, respirations 14. CHEST: Clear to auscultation. CARDIOVASCULAR: S1 and S2 muffled. ABDOMEN: Soft. LEGS: Status post fracture. LABORATORY DATA: Reviewed. ASSESSMENT: 1. Status post fall and closed right trimalleolar fracture. 2. Hypotension and elevated WBC, possible sepsis present on admission, primary unknown. 3. History of asthma. 4. Bilateral conjunctivitis. 5. History of IgG4-related lung disease with biopsy-proven. 6. History of degenerative joint disease. 7. History of gastrointestinal bleed. 8. Abdominal distention. 9. Multiple complex medical issues. RECOMMENDATIONS: Recommend to continue current medical management. Continue symptomatic treatment. Otherwise, at this time, I would recommend to continue with Tobrex eye drops. Otherwise, the patient has improved significantly with IV antibiotics. White count is improved; but however, the cultures are negative so far. Continue to monitor. Prognosis is guarded. Further recommendations to follow. MMODL / IJN: [id number] /
[2023-05-15] MEDS ORDERED: Potassium Replacement Protocol 1 EACH MISC MISCELLANE PRN (07:49)
[2023-05-15 10:21] LABS: Anisocytosis Slight; Basophils # (A) 0.1 k/uL (0-0.2); Basophils % (A) 1 %; Eosinophils # (A) 0.5 k/uL (0-0.7); Eosinophils % (A) 4 %; HCT 35.5 % (34.0-46.0); HGB 11.1 gm/dL (11.4-16.0); Hypochromasia Moderate; Lymphocytes # (A) 1.7 k/uL (1.0-4.8); Lymphocytes % (A) 14 %; MCH 26.1 pg (25.0-35.0); MCHC 31.4 g/dL (31.0-37.0); Mean Platelet Volume 7.8; Monocytes % (A) 8 %; Neutrophils # (A) 8.5 k/uL (1.3-7.7); Neutrophils % (A) 72 %; Platelet Count 351 k/uL (150-450); RBC 4.28 m/uL (3.80-5.40); RDW 16.2 % (11.5-15.5); WBC 11.9 k/uL (3.8-10.6)
[2023-05-15 10:41] LABS: African American GFR (CKD) >90 (>60 ml/min/1.73 sqM); Anion Gap 7 mmol/L; Blood Urea Nitrogen 10 mg/dL (7-17); Calcium 8.5 mg/dL (8.4-10.2); Carbon Dioxide 27 mmol/L (22-30); Chloride 104 mmol/L (98-107); Glucose 94 mg/dL (74-99); Non-African American GFR(CKD) >90 (>60 ml/min/1.73 sqM); Potassium 3.4 mmol/L (3.5-5.1); Sodium 138 mmol/L (137-145)
--- NOTE | 2023-05-15 10:56 | P.PN ---
Subjective Progress Note Date: 05/15/23 73-year-old female who was transferred from [facility], to [facility]. At the outside facility, the patient apparently sustained a fall, and injured her right foot and ankle. She apparently developed a bimalleolar fracture on the right, and had a closed reduction of her right a nkle, at the outside hospital, with ketamine and Versed. She apparently developed subsequent hypotension, and was noted to have an elevated white count, and was transferred here. In addition, the patient was started on norepinephrine. The patient will need a lipid reduction internal fixation of t he ankle, in the near future. Currently, she is seen in room 381. She's getting saline at 20 mL an hour. She's on room air. She continues on vancomycin and Rocephin. A pro-calcitonin level checked. Most recent blood pressures are all within the normal range, and her mean arterial pressures above 65. White count 20.3, hemoglobin 11.8, hematocrit 39.4, and platelet count 354,000. Sodium 138, potassium 3.8, chlorides 106, CO2 18, anion gap 14, BUN 14, creatinine 0.59. The rest of the labs are normal. Troponin was negative 2. TSH was normal. Albumin was 3. UA does not reveal any evidence of urinary tract infection. The patient's chest x-ray shows some pulmonary venous congestion, without overt failure. In addition, there is a lesion noted in the left upper lobe. This will need follow-up. Progress note dated 05/12/2023. The patient is seen today in room 381. She is on room air. She's getting saline at 60 mL an hour. Her pro-calcitonin level was 0.67. He was seen by in fectious diseases, and placed on Rocephin and vancomycin. The source of her infection, is not clear to me. Labs today include a white count 17, hemoglobin 10.6, hematocrit 35.8, and a platelet count of 291,000. Sodium 139, potassium 3.5, chlorides 109, CO2 21, BUN 16, creatinine 0.53. Albumin is 2.6. Progress note dated 05/13/2023. 73-year-old female seen in room 381. Currently, she is on room air. She continues on vancomycin and Rocephin as per infectious diseases. Clinically, the patient appears to be relatively stable. Other than pain in the ankle, she has no complaints. No new labs today. Labs from yesterday have been reviewed. Blood and sputum analysis, is either negative or pending. Chest x-ray from yesterday reveals a left lower lobe pneumonia. The patient's pro-calcitonin level was 0.67. On today's evaluation of 05/14/2023, the patient is being seen for a follow-up. She is on room air oxygen. She has an ankle fracture and the patient is awaiting surgery. She is clinically stable and she is also hemodynamically stable. She had a fall and she injured her right foot and ankle and she has a bimalleolar fracture on the right and she had a closed reduction of the right ankle. The patient is currently stable. Blood work from today shows a WBC count of 10.2, hemoglobin of 11 and a platelet count of 97, BUN is at 30 with a creatinine of 0.5. She is on her home medications. She is also on IV Rocephin and vancomycin. The chest x-ray shows some limited atelectasis in left lung base. Had echocardiogram showed normal LV function. on 05/15/2023, no new complaints and the patient remains on room air oxygen. Awaiting her surgery on the right ankle.The patient is delirious count of 11.9, hemoglobin of 11.1, BUN is at senna with a creatinine of 0.6 and a sodium levels of 138 with a potassium level of 3.4. Medication remains unchanged. Objective - Vital Signs Vital signs: Vital Signs Temp 98.4 F 05/15/23 04:30 Pulse 85 05/15/23 08:57 Resp 18 05/15/23 04:30 BP 138/71 05/15/23 04:30 Pulse Ox 94 L 05/15/23 04:30 FiO2 Intake & Output 05/14/23 05/15/23 05/15/23 18:59 06:59 18:59 Intake Total 1170 Output Total 750 1200 Balance 420 -1200 Intake: Intake, IV Titration 930 Amount Sodium Chloride 0.9% 1, 280 000 ml @ 60 mls/hr IV . [id number] [facility] Rx#:[id number] Vancomycin 1,500 mg In 500 Sodium Chloride 0.9% 500 ml 500 ml @ 167 mls/hr IVPB Q16H [facility] Rx#: [id number] cefTRIAXone 2 gm In 150 Sodium Chloride 0.9% 50 ml @ 100 mls/hr IVPB Q24HR [facility] Rx#:[id number] Oral 240 Output: Urine 750 1200 Other: Voiding Method Indwelling Catheter Indwelling Catheter - Exam No acute distress, oriented 3. Currently, the patient's on room air. Saturations are excellent. HEENT examination is grossly unremarkable. Mucous membranes are moist. No oral lesions. Neck supple. Full range of motion. No adenopathy thyromegaly or neck vein distention. Cardiovascular examination reveals regular rhythm rate. S1-S2 normal. No S3 or S4. No discernible murmur noted. Heart rate is 78 bpm. Heart sounds are distant. Lungs reveal mostly clear breath sounds. Very minimal rhonchi. No crackles or wheezes. Abdomen soft bowel sounds are heard. No masses or tenderness. Room air saturation is 97 %. Extremities are intact. No cyanosis clubbing or edema. Right ankle and foot is wrapped. Skin is without rash or lesion. Neurologic examination is brief but nonfocal. - Labs CBC & Chem 7: 05/15/23 09:41 05/15/23 09:41 Labs: Abnormal Lab Results - Last 24 Hours (Table) 05/15/23 05/15/23 Range/Units 09:41 09:41 WBC 11.9 H (3.8-10.6) k/uL Hgb 11.1 L (11.4-16.0) gm/dL RDW 16.2 H (11.5-15.5) % Neutrophils # 8.5 H (1.3-7.7) k/uL Potassium 3.4 L (3.5-5.1) mmol/L Microbiology - Last 24 Hours (Table) 05/12/23 16:31 Gram Stain - Final Sputum Sputum Culture - Final Assessment and Plan Plan: Status post fall, and bi-malleolar fracture of the right ankle.patient is still awaiting surgery. Hypotension, likely related to infection/sepsis, resolved. Pneumonia, left lower lobe. History of asthma. History of GI bleed. History of GERD. History of osteoarthritis. 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 Urinary incontinence. History of colitis. Plan no change in her condition May discontinue antibiotics The patient presented with some leukocytosis at time of admission, which is improved. Her pro calcitonin level was at 0.67. Her urine culture has been negative. Blood cultures been negative. Suggest stopping the vancomycin. May continue the Rocephin for another 24-48 hours. Awaiting surgery.
[2023-05-15 12:16] VITALS: BP 132/68; PULSE 80; RESP 16; TEMP 98.2
[2023-05-15] MEDS: POTASSIUM CHLORIDE ER 20 MEQ TAB.ER PO SCH (12:25)
--- NOTE | 2023-05-15 14:03 | P.DS ---
Providers Date of admission: 05/10/23 13:08 Expected date of discharge: 05/15/23 Attending physician: Luis Scott Consults: 05/10/23 13:08 Consult Physician Urgent Consulting Provider: Willy Hilliard Consult Reason/Comments: right trimalleolar fracture Do you want consulting provider notified?: Already Contacted 05/10/23 16:03 Consult Physician Routine Consulting Provider: Enmanuel Mckeon Consult Reason/Comments: h/o hypotension Do you want consulting provider notified?: Yes 05/10/23 16:05 Consult Physician Routine Consulting Provider: Noam Zabala Consult Reason/Comments: sepsis Do you want consulting provider notified?: Yes Primary care physician: Shiv Wagoner [facility] Course: Final diagnosis Status post fall and closed right trimalleolar fracture Hypotension and elevated white count possible sepsis, present on admission, primary unknown History of asthma Bilateral conjunctivitis History of IgG4 related lung disease with biopsy-proven X line history of degenerative joint disease History of GI bleed Abdominal distention Obesity with a BMI of 39.6 History of anxiety/depression GERD GI prophylaxis DVT prophylaxis Full code Discharge disposition Patient is being discharged in a stable condition with guarded prognosis to [facility]. Patient will follow-up with Dr. Shiv Wagoner in the outpatient setting upon discharge. Patient is to continue with oral Ceftin twice daily for 1 week and close outpatient follow-up with orthopedics as well as cardiology as scheduled. Total time taken is greater than 35 minutes. Hospital course This is a 73-year-old female who was recently admitted from [facility] with trimalleolar fracture and had hypotension requiring pressor support sent here for further evaluation. Patient monitored by orthopedics with no plans for immediate surgical intervention revision am recommending rehab and patient has been accepted at [facility]. Patient also having some bilateral conjunctivitis started on TobraDex recommend continue for 1 week along with warm compresses twice daily to the site. Blood pressures are controlled and patient was evaluated by cardiology recommending outpatient follow-up. Patient continued on antibiotics with infectious disease following and will continue oral Ceftin twice daily for 1 week to complete the course. Patient has been cleared by consultations for discharge and continue with orthopedic instructions outpatient. Please refer to other consultation notes for further HPI. Currently no reports of chest pain, shortness of breath, or palpitations. Patient is afebrile. No reports of nausea or vomiting and patient is tolerating diet. Patient will be going to [facility] today. Patient is to continue with rest ice elevation of the right lower extremity and nonweightbearing of the right lower extremity per orthopedics and close outpatient follow-up in 2 weeks. Patient will require ORIF in the outpatient setting. Guarded prognosis. Physical exam: Gen: This is a 73-year-old female who is awake, alert and oriented 3, well- developed, well-nourished, obese HEENT: Head is atraumatic, normocephalic. Pupils equal, round. Sclerae is anicteric. NECK: Supple. No JVD. No lymphadenopathy. No thyromegaly. LUNGS: Clear to auscultation. No wheezes or rhonchi. No intercostal retractions. HEART: Regular rate and rhythm. No murmur. ABDOMEN: Soft. Obese Bowel sounds are present. No masses. No tenderness. EXTREMITIES: No pedal edema. No calf tenderness. Right ankle splinted and some mild left foot drop noted. NEUROLOGICAL: Patient is awake, alert and oriented x3. Cranial nerves 2 through 12 are grossly intact. Diffusely weak Please refer to medication reconciliation sheet for a list of medications. The impression and plan of care has been dictated by Paige Verdugo, Nurse Practitioner as directed. Dr. Jose David MD I have performed a history and examination and MDM of this patient, discussed the same with the dictator, and agree with the dictator's assessment and plan as written ,documented as a scribe. Based on total visit time, I have performed more than 50% of the visit. Patient Condition at Discharge: Fair Plan - Discharge Summary Discharge Rx Participant: No New Discharge Prescriptions: New Artificial Tears-Hypromellose [Artificial Tear Drops] 1 drops BOTH EYES QID ml cefUROXime axetiL [Ceftin] 500 mg PO BID 7 Days #14 tab Ipratropium-Albuterol Nebulize [Duoneb 0.5 mg-3 mg/3 ml Soln] 3 ml INHALATION RT-TID PRN each PRN Reason: Shortness Of Breath Or Wheezing Ipratropium-Albuterol Nebulize [Duoneb 0.5 mg-3 mg/3 ml Soln] 3 ml INHALATION RT-TID each Heparin Sodium,Porcine (1 ml) [Heparin Sodium] 5,000 unit SQ Q12HR each Tobramycin 0.3% Ophth Soln [Tobrex 0.3% Ophth Soln] 1 drops BOTH EYES Q4HR 7 Days #7 ml Continue Omeprazole 20 mg PO DAILY predniSONE 5 mg PO DAILY PARoxetine HCL [Paxil] 20 mg PO DAILY Dapagliflozin Propanediol [Farxiga] 10 mg PO DAILY #30 tab Meclizine [Antivert] 25 mg PO BID PRN PRN Reason: Vertigo Aspirin 81 mg PO DAILY #30 tab Metoprolol Succinate (ER) [Toprol XL] 25 mg PO DAILY #30 tab Potassium Chloride ER [K-Dur 10] 10 meq PO DAILY #30 tab Gabapentin [Neurontin] 300 mg PO TID #3 cap HYDROcodone/APAP 10-325MG [[place] 10-325] 1 tab PO BID PRN #4 tab PRN Reason: Pain Discontinued Furosemide [Lasix] 40 mg PO DAILY #30 tab Discharge Medication List Omeprazole 20 mg PO DAILY 08/19/15 [History] predniSONE 5 mg PO DAILY 12/28/19 [History] Meclizine [Antivert] 25 mg PO BID PRN 01/12/23 [History] PARoxetine HCL [Paxil] 20 mg PO DAILY 01/12/23 [History] Aspirin 81 mg PO DAILY #30 tab 01/16/23 [Rx] Dapagliflozin Propanediol [Farxiga] 10 mg PO DAILY #30 tab 01/16/23 [Rx] Metoprolol Succinate (ER) [Toprol XL] 25 mg PO DAILY #30 tab 01/16/23 [Rx] Potassium Chloride ER [K-Dur 10] 10 meq PO DAILY #30 tab 01/16/23 [Rx] Artificial Tears-Hypromellose [Artificial Tear Drops] 1 drops BOTH EYES QID ml 05/15/23 [Rx] Gabapentin [Neurontin] 300 mg PO TID #3 cap 05/15/23 [Rx] HYDROcodone/APAP 10-325MG [[place] 10-325] 1 tab PO BID PRN #4 tab 05/15/23 [Rx] Heparin Sodium,Porcine (1 ml) [Heparin Sodium] 5,000 unit SQ Q12HR each 05/15/23 [Rx] Ipratropium-Albuterol Nebulize [Duoneb 0.5 mg-3 mg/3 ml Soln] 3 ml INHALATION RT-TID each 05/15/23 [Rx] Ipratropium-Albuterol Nebulize [Duoneb 0.5 mg-3 mg/3 ml Soln] 3 ml INHALATION RT-TID PRN each 05/15/23 [Rx] Tobramycin 0.3% Ophth Soln [Tobrex 0.3% Ophth Soln] 1 drops BOTH EYES Q4HR 7 Days #7 ml 05/15/23 [Rx] cefUROXime axetiL [Ceftin] 500 mg PO BID 7 Days #14 tab 05/15/23 [Rx] Follow up Appointment(s)/Referral(s): Willy Hilliard DO [Doctor of Osteopathic Medicine] - 2 Weeks [facility] [NON-STAFF] - Shiv Wagoner MD [Primary Care Provider] - 1-2 days Patient Instructions/Handouts: Ankle Fracture (DC) Activity/Diet/Wound Care/Special Instructions: Activity: Non weight bearing right lower extremity Discharge Disposition: TRANSFER TO SNF/ECF
--- NOTE | 2023-05-15 14:52 | P.PN ---
Subjective Progress Note Date: 05/14/23 Principal diagnosis: Reason for follow-up visit leukocytosis Patient is a 73-year-old female with a past medical history significant for asthma and reflux GI bleed IgG4 related lung disease patient apparently sustained a fall in the bathroom subsequently developing right foot drop and significant pain to the right ankle area, patient did have evidence of right ankle bimalleolar fracture also noticed to have elevated white count and low-grade fever. On today's evaluation that is 05/14/2023 the patient remains to be afebrile, the patient is breathing comfortably on room air and no need for supplemental oxygen, the patient denies having any chest pain denies any cough or sputum production, patient denies any abdominal pain no nausea vomiting or any diarrhea, the patient pain to the right ankle is currently controlled Patient white count is normalized to 10.2, creatinine 0.58, procalcitonin 0.67 Objective - Vital Signs Vital signs: Vital Signs Temp 98.2 F 05/14/23 12:00 Pulse 72 05/14/23 13:20 Resp 14 05/14/23 13:20 BP 138/61 05/14/23 12:00 Pulse Ox 96 05/14/23 12:00 FiO2 Intake & Output 05/14/23 05/14/23 05/15/23 06:59 18:59 06:59 Intake Total 1170 Output Total 1600 750 Balance -1600 420 Intake: Intake, IV Titration 930 Amount Sodium Chloride 0.9% 1, 280 000 ml @ 60 mls/hr IV . [id number] KATIE Rx#:[id number] Vancomycin 1,500 mg In 500 Sodium Chloride 0.9% 500 ml 500 ml @ 167 mls/hr IVPB Q16H KATIE Rx#: [id number] cefTRIAXone 2 gm In 150 Sodium Chloride 0.9% 50 ml @ 100 mls/hr IVPB Q24HR KATIE Rx#:[id number] Oral 240 Output: Urine 1600 750 Uretheral (Lynn) 800 Other: Voiding Method Indwelling Catheter Indwelling Catheter - Exam GENERAL DESCRIPTION: An elderly female lying in bed in no distress RESPIRATORY SYSTEM: Unlabored breathing , clear to auscultation anteriorly HEART: S1 S2 regular rate and rhythm , ABDOMEN: Soft , no tenderness EXTREMITIES: Right ankle is currently in cast left leg swelling redness slightly decreased - Labs CBC & Chem 7: 05/15/23 09:41 05/15/23 09:41 Labs: Abnormal Lab Results - Last 24 Hours (Table) 05/14/23 05/14/23 Range/Units 06:25 06:25 Hgb 11.0 L (11.4-16.0) gm/dL RDW 16.2 H (11.5-15.5) % Potassium 3.4 L (3.5-5.1) mmol/L Chloride 108 H (98-107) mmol/L Microbiology - Last 24 Hours (Table) 05/12/23 16:31 Gram Stain - Final Sputum Sputum Culture - Final 05/10/23 16:37 Blood Culture - Preliminary Blood Assessment and Plan (1) Leukocytosis Current Visit: Yes Status: Acute Code(s): D72.829 - ELEVATED WHITE BLOOD CELL COUNT, UNSPECIFIED SNOMED Code(s): 884186378 (2) Pneumonia Current Visit: No Status: Acute Code(s): J18.9 - PNEUMONIA, UNSPECIFIED ORGANISM SNOMED Code(s): 991619384 Plan: 1patient was in the hospital with right ankle fracture after a fall patient noted to be hypotensive requiring pressor support and steroids also noted to have elevated white count questionably reactive to the recent surgery has the patient not running any fever does not look toxic, she did have some abnormality on the chest x-ray not clinically behaving as pneumonia also noticed to have a mild cellulitis to the left lower extremity and did have a negative UA 2blood cultures are so far negative, patient did have procalcitonin of 0.67, sputum culture currently pending 3patient white count is trending down, patient to continue with Rocephin and vancomycin while waiting for the culture to finalize to determine her discharge antibiotics and monitor clinical course closely Dictation was produced using [email or web address] dictation software. please excuse any grammatical, word or spelling errors. Time with Patient: Less than 30
--- NOTE | 2023-05-15 14:54 | P.PN ---
Subjective Progress Note Date: 05/15/23 Principal diagnosis: Reason for follow-up visit leukocytosis Patient is a 73-year-old female with a past medical history significant for asthma and reflux GI bleed IgG4 related lung disease patient apparently sustained a fall in the bathroom subsequently developing right foot drop and significant pain to the right ankle area, patient did have evidence of right ankle bimalleolar fracture also noticed to have elevated white count and low-grade fever. On today's evaluation that is 05/15/2023, the patient continues to be afebrile and is breathing comfortably on room air, and patient denies any shortness of breath, chest pain, the patient cough is decreased intensity with occasional sputum production, patient denies nausea/vomiting /diarrhea and no abdominal pain. The patient denies any worsening pain to the right ankle is currently controlled Patient white count is 11.9, creatinine 0.60, procalcitonin 0.67, blood and sputum culture have been negative Objective - Vital Signs Vital signs: Vital Signs Temp 98.4 F 05/15/23 04:30 Pulse 85 05/15/23 08:57 Resp 18 05/15/23 04:30 BP 138/71 05/15/23 04:30 Pulse Ox 94 L 05/15/23 04:30 FiO2 Intake & Output 05/14/23 05/15/23 05/15/23 18:59 06:59 18:59 Intake Total 1170 Output Total 750 1200 Balance 420 -1200 Intake: Intake, IV Titration 930 Amount Sodium Chloride 0.9% 1, 280 000 ml @ 60 mls/hr IV . [id number] KATIE Rx#:[id number] Vancomycin 1,500 mg In 500 Sodium Chloride 0.9% 500 ml 500 ml @ 167 mls/hr IVPB Q16H KATIE Rx#: [id number] cefTRIAXone 2 gm In 150 Sodium Chloride 0.9% 50 ml @ 100 mls/hr IVPB Q24HR KATIE Rx#:[id number] Oral 240 Output: Urine 750 1200 Other: Voiding Method Indwelling Catheter Indwelling Catheter - Exam GENERAL DESCRIPTION: An elderly female lying in bed in no distress RESPIRATORY SYSTEM: Unlabored breathing , clear to auscultation anteriorly HEART: S1 S2 regular rate and rhythm , ABDOMEN: Soft , no tenderness EXTREMITIES: Right ankle is currently in cast left leg swelling redness slightly decreased - Labs CBC & Chem 7: 05/15/23 09:41 05/15/23 09:41 Labs: Abnormal Lab Results - Last 24 Hours (Table) 05/15/23 05/15/23 Range/Units 09:41 09:41 WBC 11.9 H (3.8-10.6) k/uL Hgb 11.1 L (11.4-16.0) gm/dL RDW 16.2 H (11.5-15.5) % Neutrophils # 8.5 H (1.3-7.7) k/uL Potassium 3.4 L (3.5-5.1) mmol/L Microbiology - Last 24 Hours (Table) 05/12/23 16:31 Gram Stain - Final Sputum Sputum Culture - Final Assessment and Plan (1) Leukocytosis Current Visit: Yes Status: Acute Code(s): D72.829 - ELEVATED WHITE BLOOD CELL COUNT, UNSPECIFIED SNOMED Code(s): 238666219 (2) Pneumonia Current Visit: No Status: Acute Code(s): J18.9 - PNEUMONIA, UNSPECIFIED ORGANISM SNOMED Code(s): 223210269 Plan: 1patient was in the hospital with right ankle fracture after a fall patient n oted to be hypotensive requiring pressor support and steroids also noted to have elevated white count questionably reactive to the recent surgery has the patient not running any fever does not look toxic, she did have some abnormality on the chest x-ray not clinically behaving as pneumonia also noticed to have a mild cellulitis to the left lower extremity and did have a negative UA 2blood cultures are so far negative, patient did have procalcitonin of 0.67, sputum culture negative for any resistant pathogen 3patient remains to be afebrile culture have been negative for any resistant pathogen and did have normalization of the white count as of yesterday, will consider short course of oral Ceftin on discharge discussed with the SCALLOPER for admitting team Dictation was produced using [employer] dictation software. please excuse any grammatical, word or spelling errors. Time with Patient: Less than 30
[2023-05-15] MEDS: VANCOMYCIN TROUGH DUE 1 EACH MISC MISCELLANE ONE (18:33)
== END 2023-05-15 19:25 | DRG 871 ==
LOC: EC 10:23 → 4SSUR 13:08 → 3SCARD 13:24
PROVIDERS: ADMIT Internal Medicine; ATTEND Internal Medicine
DX: A41.9 Sepsis, unspecified organism (principal); J18.9 Pneumonia, unspecified organism; L03.116 Cellulitis of left lower limb; J44.0 Chronic obstructive pulmonary disease with (acute) lower respiratory infection; J98.11 Atelectasis; S82.851A Displaced trimalleolar fracture of right lower leg, initial encounter for closed fracture; W19.XXXA Unspecified fall, initial encounter; Z91.81 History of falling; I10 Essential (primary) hypertension; I25.10 Atherosclerotic heart disease of native coronary artery without angina pectoris; M21.371 Foot drop, right foot; J44.9 Chronic obstructive pulmonary disease, unspecified; G62.9 Polyneuropathy, unspecified; I95.81 Postprocedural hypotension; K21.9 Gastro-esophageal reflux disease without esophagitis; M19.90 Unspecified osteoarthritis, unspecified site; F41.8 Other specified anxiety disorders; D72.829 Elevated white blood cell count, unspecified; E66.9 Obesity, unspecified; Z87.19 Personal history of other diseases of the digestive system; Z68.39 Body mass index [BMI] 39.0-39.9, adult; R32 Unspecified urinary incontinence; W18.30XA Fall on same level, unspecified, initial encounter; Z79.82 Long term (current) use of aspirin; Z79.84 Long term (current) use of oral hypoglycemic drugs; Z79.899 Other long term (current) drug therapy; Z82.49 Family history of ischemic heart disease and other diseases of the circulatory system; Z90.710 Acquired absence of both cervix and uterus; Z90.2 Acquired absence of lung [part of]; Z88.1 Allergy status to other antibiotic agents; Z88.8 Allergy status to other drugs, medicaments and biological substances; M21.372 Foot drop, left foot; I07.1 Rheumatic tricuspid insufficiency; Z90.49 Acquired absence of other specified parts of digestive tract; Z91.018 Allergy to other foods
CPT/HCPCS: 36415; 71045; 71046; 74018; 80048; 80053; 80202; 81001; 83735; 84145; 84443; 84484; 85025; 87040; 87070; 87205; 93005; 93306; 94640; 96361; 96365; 96366; 96368; 96375; 99285

== ENCOUNTER → 2023-11-01 | Outpatient (CLI) | payer MEDICARE, OTHER ==
--- NOTE | 2023-11-01 16:34 | US ---
EXAMINATION TYPE: US venous doppler duplex LE LT DATE OF EXAM: 11/01/2023 4:10 PM COMPARISON: NONE CLINICAL INDICATION: Female, 73 years old with history of I80.9 PHLEBITIS AND THROMBOPHLEBITIS OF SIT E; Left knee pain SIDE PERFORMED: Left TECHNIQUE: The lower extremity deep venous system is examined utilizing real time linear array sonog ion with graded compression, doppler sonography and color-flow sonography. VESSELS IMAGED: Common Femoral Vein Deep Femoral Vein Greater Saphenous Vein * Femoral Vein Popliteal Vein Small Saphenous Vein * Proximal Calf Veins (* superficial vessels) Bakers cyst left popliteal fossa The deep venous system of the left lower extremity from the common femoral vein to the proximal calf veins is patent and compressible with augmentable flow with normal waveforms. IMPRESSION: No evidence of left lower extremity DVT from the common femoral vein to the proximal calf veins. Bake r's cyst.
== END | disposition home or self-care (01) ==
LOC: RADUSWWP 15:48
PROVIDERS: ATTEND Podiatrist
DX: M71.22 Synovial cyst of popliteal space [Baker], left knee (principal); I80.9 Phlebitis and thrombophlebitis of unspecified site; M25.572 Pain in left ankle and joints of left foot

== ENCOUNTER 2024-05-10 13:54 | Inpatient (IN) | payer MEDICARE, OTHER ==
[2024-05-10] MEDS ORDERED: HEPARIN SODIUM 1,000 UN/ML (10ML VL) IV PRN (14:07)
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
[2024-05-10] MEDS ORDERED: NALOXONE 0.4 MG/ML 1 ML VIAL IV PRN (14:24)
[2024-05-10 14:38] LABS: Anisocytosis Slight; Basophils % (A) 0 %; Eosinophils % (A) 0 %; HCT 46.7 % (34.0-46.0); HGB 14.9 gm/dL (11.4-16.0); Hypochromasia Slight; Lymphocytes # (A) 0.8 k/uL (1.0-4.8); Lymphocytes % (A) 5 %; MCHC 31.8 g/dL (31.0-37.0); MCV 81.8 fL (80.0-100.0); Mean Platelet Volume 7.3; Microcytosis Slight; Monocytes # (A) 0.4 k/uL (0-1.0); Monocytes % (A) 2 %; Neutrophils # (A) 15.2 k/uL (1.3-7.7); Neutrophils % (A) 92 %; Platelet Count 281 k/uL (150-450); RBC 5.71 m/uL (3.80-5.40); RDW 19.1 % (11.5-15.5); WBC 16.5 k/uL (3.8-10.6)
[2024-05-10] MEDS: HEPARIN SOD,PORK IN 0.45% NACL 25,000 UNIT in 0.45% NACL 1 250ML.BAG IV SCH (14:41)
[2024-05-10 15:02] LABS: ALT 221 U/L (4-34); AST 195 U/L (14-36); African American GFR (CKD) 75 (>60 ml/min/1.73 sqM); Albumin 4.3 g/dL (3.5-5.0); Alkaline Phosphatase 138 U/L (38-126); Anion Gap 9 mmol/L; Blood Urea Nitrogen 13 mg/dL (7-17); Calcium 9.1 mg/dL (8.4-10.2); Carbon Dioxide 28 mmol/L (22-30); Chloride 103 mmol/L (98-107); Glucose 125 mg/dL (74-99); Non-African American GFR(CKD) 65 (>60 ml/min/1.73 sqM); Potassium 3.6 mmol/L (3.5-5.1); Prothrombin Time 11.3 sec (10.0-12.5); Sodium 140 mmol/L (137-145); Total Bilirubin 1.2 mg/dL (0.2-1.3); Total Protein 7.2 g/dL (6.3-8.2)
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
[2024-05-10 15:09] LABS: Partial Thromboplastin Time 151.1 sec (22.0-30.0)
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
[2024-05-10 15:11] LABS: NT-Pro-B-Type Natriuretic Pept 8010 pg/mL
[2024-05-10] MEDS: fentaNYL (PF) 50 MCG/ML 2 ML AMP IVP ONE (15:59)
[2024-05-10] MEDS: LIDOCAINE 1% INJ 10MG/ML (20 ML MDV) SQ ONE (16:00)
[2024-05-10] MEDS: HEPARIN SODIUM 1,000 UN/ML (10ML VL) IVP ONE (16:08)
[2024-05-10] MEDS: IOPAMIDOL-370 100ML BTL INJ ONE (16:35)
[2024-05-10] MEDS: HEPARIN SODIUM,PORCINE 10,000 UNIT in SODIUM CHLORIDE 0.9% 1,000 ML IRRIGATION ONE (16:48)
[2024-05-10] MEDS: HEPARIN SODIUM,PORCINE (1 ML) 2,500 UNIT in SODIUM CHLORIDE 0.9% 250 ML IRRIGATION ONE (16:48)
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
--- NOTE | 2024-05-10 16:50 | P.OP ---
Date of Procedure: 05/10/24 Preoperative Diagnosis: Bilateral saddle pulmonary embolism with right heart strain Acute respiratory insufficiency, distress Postoperative Diagnosis: Same Procedure(s) Performed: Ultrasound-guided right common femoral vein access Pulmonary angiogram with selective right and left pulmonary artery angiograms Percutaneous thrombectomy with Inari flowtriever with extirpation of clot from right main pulmonary artery Percutaneous thrombectomy with Inari flowtriever with extirpation of clot from right truncus anterior Percutaneous thrombectomy with Inari flowtriever with extirpation of clot from right lobar pulmonary artery Percutaneous thrombectomy with Inari flowtriever with extirpation of clot from the left main pulmonary artery Percutaneous thrombectomy with Inari flowtriever with extirpation of the clot from the left lobar pulmonary artery Conscious sedation x 36 minutes Anesthesia: local (With sedation) Surgeon: Jhon Barron Estimated Blood Loss (ml): 100 Pathology: none sent Condition: stable Disposition: ICU Indications for Procedure: 74-year-old female who presented to the emergency department from [facility] secondary to bilateral pulmonary embolism with right heart strain and respiratory difficulty satting low 90s on 10 L high flow oxygen. She was found to have on CT scan RV LV ratio of over 2. Due to her respiratory issues as well as right heart strain and saddle PE we will take her for emergent thrombectomy. Description of Procedure: Operative narrative: After written and informed consent was obtained the patient all risks, benefits and complications were described patient was brought to the [facility] laid in a supine position. The area of the groins were prepped and draped in usual sterile fashion. Utilizing ultrasound guidance the right common femoral vein was located and shown to be patent without thrombus and then was accessed with a micropuncture kit and utilizing Seldinger technique an 8-Estonian sheath was placed. 035 guidewire was then advanced into the IVC under fluoroscopic guidance. Track was dilated and the Inari 24-Estonian sheath was placed. An angled pigtail catheter was then placed and utilizing a J-wire the heart was entered and advanced into the pulmonary artery. Pigtail catheter was then removed over the wire and a JR4 catheter was placed and the right pulmonary artery was entered and wire was placed to the main right pulmonary artery. The wire was then exchanged for an Amplatz wire in normal fashion. Patient was administered heparin at this time. A thrombectomy catheter was then advanced and pulmonary angiogram was obtained demonstrating thrombus within the right main and segmental branches as well as the left main. Mechanical thrombectomy was then performed with aspiration of multiple large clots. Aspiration was performed 4 times. Right pulmonary angiogram was then obtained demonstrating resolution of thrombus within the main pulmonary artery as well as the truncus anterior. Catheter was then selectively placed in the left main pulmonary artery and mechanical thrombectomy was performed 3 times. Pulmonary angiogram was then obtained demonstrating complete resolution of thrombus with good filling to the outer aspects of the long on both sides. Once completed all catheters and wires were removed. A suture was placed in the right groin after the sheath was removed for hemostasis. Patient tolerated procedure well and was sent to recovery.
[2024-05-10 17:14] LABS: Glucose,Whole Blood 132 mg/dL (70-110)
--- NOTE | 2024-05-10 19:24 | US ---
EXAMINATION TYPE: US venous doppler duplex LE DATE OF EXAM: 05/10/2024 7:02 PM COMPARISON: NONE CLINICAL INDICATION: Female, 74 years old with history of swelling, elevated d-dimer; saddle PE, just came to ICU after thrombectomyy, right groin access, right calf pain and swelling TECHNIQUE: The lower extremity deep venous system is examined utilizing real time linear array sonog ion with graded compression, color doppler sonography, and spectral doppler. SIDE PERFORMED: Bilateral FINDINGS: VESSELS IMAGED: Common Femoral Vein Deep Femoral Vein Greater Saphenous Vein * Femoral Vein Popliteal Vein Small Saphenous Vein * Proximal Calf Veins Posterior tibial veins (* superficial vessels) Right Leg: Bandage on upper thigh due to recent thrombectomy, unable to see femoral vein superior to mid level, internal echoes, with no flow, seen from PTV's extending up through mid FV , Color Doppl er imaging shows patency of the vessels. Spectral waveforms are within normal limits. Left Leg: Negative for DVT, Color Doppler imaging shows patency of the vessels. Spectral waveforms a re within normal limits. IMPRESSION: 1. Right: Dressing at the upper thigh. Unable to assess the upper to mid femoral vein. There is DVT w ithin the visualized mid femoral vein down into the calf. 2. Left: No evidence for DVT within the left lower extremity. [facility], , 05/10/2024 7:22 PM
[2024-05-10] MEDS ORDERED: MECLIZINE 25 MG TAB PO PRN (19:34)
[2024-05-10] MEDS ORDERED: IPRATROPIUM-ALBUTEROL 3 ML NEB INHALATION PRN (19:34)
[2024-05-10] MEDS ORDERED: HYDROcodone/APAP 10-325MG 1 EACH TAB PO PRN (19:34)
[2024-05-10] MEDS ORDERED: ACETAMINOPHEN TAB 325 MG TAB PO PRN (19:37)
[2024-05-10] MEDS ORDERED: ONDANSETRON 4 MG TAB PO PRN (19:37)
[2024-05-10] MEDS: GABAPENTIN 300 MG CAP PO SCH (22:58)
[2024-05-10 23:02] LABS: Glucose,Whole Blood 150 mg/dL (70-110)
[2024-05-11] MEDS: PANTOPRAZOLE 40 MG TABLET PO SCH (06:26)
[2024-05-11 06:32] LABS: Anisocytosis Slight; HCT 39.8 % (34.0-46.0); HGB 12.1 gm/dL (11.4-16.0); Hypochromasia Moderate; MCH 25.6 pg (25.0-35.0); MCHC 30.5 g/dL (31.0-37.0); MCV 83.9 fL (80.0-100.0); Mean Platelet Volume 7.6; Platelet Count 274 k/uL (150-450); RBC 4.74 m/uL (3.80-5.40); RDW 19.2 % (11.5-15.5); WBC 23.8 k/uL (3.8-10.6)
[2024-05-11 06:34] LABS: Anisocytosis Slight; Basophils # (A) 0.1 k/uL (0-0.2); Basophils % (A) 0 %; Eosinophils % (A) 0 %; HGB 12.3 gm/dL (11.4-16.0); Hypochromasia Marked; Lymphocytes # (A) 2.1 k/uL (1.0-4.8); Lymphocytes % (A) 9 %; MCH 25.9 pg (25.0-35.0); MCHC 30.7 g/dL (31.0-37.0); MCV 84.3 fL (80.0-100.0); Mean Platelet Volume 7.8; Monocytes # (A) 1.7 k/uL (0-1.0); Monocytes % (A) 8 %; Neutrophils # (A) 18.2 k/uL (1.3-7.7); Neutrophils % (A) 81 %; Platelet Count 271 k/uL (150-450); RBC 4.75 m/uL (3.80-5.40); RDW 19.1 % (11.5-15.5); WBC 22.5 k/uL (3.8-10.6)
[2024-05-11 06:44] LABS: African American GFR (CKD) >90 (>60 ml/min/1.73 sqM); Anion Gap 5 mmol/L; Blood Urea Nitrogen 17 mg/dL (7-17); Calcium 9.1 mg/dL (8.4-10.2); Carbon Dioxide 23 mmol/L (22-30); Chloride 108 mmol/L (98-107); Glucose 113 mg/dL (74-99); Non-African American GFR(CKD) 87 (>60 ml/min/1.73 sqM); Potassium 3.3 mmol/L (3.5-5.1); Sodium 136 mmol/L (137-145)
[2024-05-11] MEDS: POTASSIUM CHLORIDE ER 10 MEQ TAB.ER.PRT PO SCH (08:20)
[2024-05-11] MEDS: DAPAGLIFLOZIN PROPANEDIOL 5 MG TABLET PO SCH (08:20)
[2024-05-11] MEDS: FUROSEMIDE 40 MG TAB PO SCH (08:21)
[2024-05-11] MEDS: ASPIRIN 81 MG PO SCH (08:21)
[2024-05-11] MEDS: FOLIC ACID 1 MG TAB PO SCH (08:21)
[2024-05-11] MEDS: METOPROLOL SUCCINATE (ER) 25 MG TAB.ER.24H PO SCH (08:21)
[2024-05-11] MEDS: PARoxetine 20 MG TAB PO SCH (08:21)
[2024-05-11] MEDS: Apixaban Initiation Dose--VTE 5 MG TAB PO SCH (10:37)
[2024-05-11] MEDS: predniSONE 5 MG TAB PO SCH (10:37)
[2024-05-11] MEDS: POTASSIUM CHLORIDE ER 20 MEQ TAB.ER PO SCH (10:56)
--- NOTE | 2024-05-11 12:22 | P.PN ---
Subjective Progress Note Date: 05/11/24 This is a female patient who was brought in to our emergency from [facility] because of massive bilateral pulm embolism with RV strain and a saddle embolus. The patient is RV to LV ratio was quite elevated consistent with submassive pulmonary embolism. The patient is currently in the emergency department. The patient is currently on 10 L of oxygen high flow and she is experiencing shortness of breath. Symptoms were rather of an acute onsets. The patient will be taken for a clot thrombectomy using the Inari device. Following that, the patient will be coming to the intensive care unit. The white cell count is at 16.5 with a hemoglobin 14.9 and a platelet count of 281. She is currently on IV heparin. Her PTT is at 151. BUN is 13 with a creatinine of 0.88 and a sodium levels at 140. Troponin is positive at 0.7 and the proBNP level is 8000. Rest of the electrolytes are all within normal limits. 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 The patient has been maintained on prednisone at low-dose of 5 mg p.o. daily. She has had previous episodes of recurrent hemoptysis which has been essentially negative and this was attributed to her IgG4 related disease. She has chronic nonalcoholic liver disease and hepatic steatosis. 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 She suffers from chronic anxiety. No previous history of DVT or pulmonary embolism. No recent surgeries. On 05/11/2024 the patient is still on IV heparin. She is on room air oxygen. The patient underwent a clot thrombectomy using the Inari device and subsequently, there was significant improvement in the patient respiratory status. The patient was in the 100% RV to facemask and currently she is on room air oxygen. No specific complaints. No pleurisy. No hemoptysis. No chest pain. Hemodynamically stable. Doppler of the lower extremity also showed a right femoral DVT. Blood work from today shows a white cell count of 23, hemoglobin 12.1 and a platelet count of 274. BUN 17 with a creatinine of 0.6 and a sodium levels at 136 with a potassium level of 3.3. Calcium is 9.1. Objective - Vital Signs Vital signs: Vital Signs Temp 97.5 F L 05/11/24 04:00 Pulse 79 05/11/24 07:00 Resp 19 05/11/24 07:00 BP 135/82 05/11/24 07:00 Pulse Ox 95 05/11/24 07:00 FiO2 Intake & Output 05/10/24 05/11/24 05/11/24 18:59 06:59 18:59 Intake Total 20 196.183 Output Total 775 485 0 Balance -755 -288.817 0 Weight 81.647 kg 83 kg Intake: IV 20 60 Invasive Line 1 10 30 Invasive Line 2 10 30 Intake, IV Titration 136.183 Amount Heparin Sod,Pork in 0.45% 136.183 NaCl 25,000 unit In 0.45 % NaCl 1 250ml.bag @ 18 UNITS/KG/HR 14.696 mls/hr IV .Q17H1M [facility] Rx#: [id number] Output: Urine 775 485 0 Uretheral (Lynn) 500 Other: Voiding Method Indwelling Catheter Indwelling Catheter - Exam The patient appeared well nourished and normally developed. Vital signs as documented. The patient is obese with a body mass index of 36.4. Breathing is normal and the patient is currently on room air oxygen Head exam is unremarkable. No scleral icterus or corneal arcus noted. Neck is without jugular venous distension, thyromegaly, or carotid bruits. Carotid upstrokes are brisk bilaterally. Lungs sounds are diminished bilaterally along with some bibasilar crackles Cardiac exam reveals the PMI to be normally sized and situated. Rhythm is regul ar. First and second heart sounds normal. No murmurs, rubs or gallops. Abdominal exam reveals normal bowel sounds, no masses, no organomegaly and no aortic enlargement. Abdomen is obese and organs cannot be accurately palpated Extremities are nonedematous and both femoral and pedal pulses are normal. Examination of the skin revealed no evidence of significant rashes, suspicious appearing nevi or other concerning lesions. Neurologically, the patient is awake and alert and the patient does not have any focal neurological deficit. Cranial nerves are essentially intact. - Labs CBC & Chem 7: 05/11/24 05:47 05/11/24 05:47 Labs: Abnormal Lab Results - Last 24 Hours (Table) 05/10/24 05/10/24 05/10/24 Range/Units 14:18 14:18 14:18 WBC 16.5 H (3.8-10.6) k/uL RBC 5.71 H (3.80-5.40) m/uL Hct 46.7 H (34.0-46.0) % MCHC (31.0-37.0) g/dL RDW 19.1 H (11.5-15.5) % Neutrophils # 15.2 H (1.3-7.7) k/uL Lymphocytes # 0.8 L (1.0-4.8) k/uL Monocytes # (0-1.0) k/uL APTT (22.0-30.0) sec Sodium (137-145) mmol/L Potassium (3.5-5.1) mmol/L Chloride (98-107) mmol/L Glucose 125 H (74-99) mg/dL POC Glucose (mg/dL) (70-110) mg/dL AST 195 H (14-36) U/L ALT 221 H (4-34) U/L Alkaline Phosphatase 138 H (38-126) U/L Troponin I 0.718 H* (0.000-0.034) ng/mL 05/10/24 05/10/24 05/10/24 Range/Units 14:18 17:13 23:00 WBC (3.8-10.6) k/uL RBC (3.80-5.40) m/uL Hct (34.0-46.0) % MCHC (31.0-37.0) g/dL RDW (11.5-15.5) % Neutrophils # (1.3-7.7) k/uL Lymphocytes # (1.0-4.8) k/uL Monocytes # (0-1.0) k/uL APTT 151.1 H* (22.0-30.0) sec Sodium (137-145) mmol/L Potassium (3.5-5.1) mmol/L Chloride (98-107) mmol/L Glucose (74-99) mg/dL POC Glucose (mg/dL) 132 H 150 H (70-110) mg/dL AST (14-36) U/L ALT (4-34) U/L Alkaline Phosphatase (38-126) U/L Troponin I (0.000-0.034) ng/mL 05/10/24 05/11/24 05/11/24 Range/Units 23:06 05:47 05:47 WBC 22.5 H 23.8 H (3.8-10.6) k/uL RBC (3.80-5.40) m/uL Hct (34.0-46.0) % MCHC 30.7 L 30.5 L (31.0-37.0) g/dL RDW 19.1 H 19.2 H (11.5-15.5) % Neutrophils # 18.2 H (1.3-7.7) k/uL Lymphocytes # (1.0-4.8) k/uL Monocytes # 1.7 H (0-1.0) k/uL APTT >200.0 H* (22.0-30.0) sec Sodium (137-145) mmol/L Potassium (3.5-5.1) mmol/L Chloride (98-107) mmol/L Glucose (74-99) mg/dL POC Glucose (mg/dL) (70-110) mg/dL AST (14-36) U/L ALT (4-34) U/L Alkaline Phosphatase (38-126) U/L Troponin I (0.000-0.034) ng/mL 05/11/24 Range/Units 05:47 WBC (3.8-10.6) k/uL RBC (3.80-5.40) m/uL Hct (34.0-46.0) % MCHC (31.0-37.0) g/dL RDW (11.5-15.5) % Neutrophils # (1.3-7.7) k/uL Lymphocytes # (1.0-4.8) k/uL Monocytes # (0-1.0) k/uL APTT (22.0-30.0) sec Sodium 136 L (137-145) mmol/L Potassium 3.3 L (3.5-5.1) mmol/L Chloride 108 H (98-107) mmol/L Glucose 113 H (74-99) mg/dL POC Glucose (mg/dL) (70-110) mg/dL AST (14-36) U/L ALT (4-34) U/L Alkaline Phosphatase (38-126) U/L Troponin I (0.000-0.034) ng/mL Assessment and Plan Plan: Acute submassive bilateral pulmonary embolism with a saddle clot as evident on the CAT angiogram of the chest and the patient has increased dyspnea, RV strain pattern based on CAT scan criteria and abnormal troponins. The patient was hypoxic and she was in the 100% nonrebreather facemask, underwent clot thrombectomy using the Inari device and the patient is postop day #1. Significant improvement in respiratory status and the patient is currently on room air oxygen. Right femoral DVT Acute shortness of breath secondary to above Acute hypoxic respiratory failure, patient was at 100% nonrebreather facemask and the patient is currently on room air oxygen IgG 4 related disease and the patient has been maintained on steroids on outpatient basis in combination with methotrexate it was started recently. Morbid obesity Diabetes mellitus History of bronchial asthma which is currently inactive and stable Chronic pain Osteoarthritis History of traumatic rib fractures related to a fall Chronic anxiety Plan Stopped IV heparin and start the patient anticoagulation with Eliquis Clot thrombectomy utilizing the Inari device was performed on 05/10/2024 Echocardiogram to evaluate RV strain and pulmonary hypertension Doppler of lower extremities was consistent with a right femoral DVT Patient is currently on room air oxygen Resume home medication including 5 mg of prednisone as maintenance, hold methotrexate Transfer outside intensive care unit
--- NOTE | 2024-05-11 12:37 | P.PN ---
Subjective Progress Note Date: 05/11/24 patient is a 74-year-old lady with past medical history significant for COPD, CHF who presented to the ER as a transfer for [facility]. Patient stated she was all right yesterday when he started noticing shortness of breath. Shortness of breath was present at rest as on exertion. Patient denied any chest pain. There was no complaint of orthopnea or PND. Patient noticed swelling of lower extremities. Patient went to [facility] where they did CT angio chest that showed saddle PE with right heart strain. Patient was started on pharmacy dose heparin and was transferred to [facility] Initial lab work done in the ER showed WB 16.5, hemoglobin 14.9, platelet count 21, sodium 140, potassium 3.6, BUN 13, creatinine 0.88, glucose 125 AST 195, ALT 221 troponin 0.718 Patient admitted to internal medicine service 05/11. Patient seen and examined. Currently on room air. Blood work done showed WBC 23.8, hemoglobin 12.1, sodium 130, potassium 3.3, BUN 17, creatinine 0.66. Doppler of the lower extremity also showed a right femoral DVT. REVIEW OF SYSTEMS: CONSTITUTIONAL: No fever, no malaise,. CARDIOVASCULAR: No chest pain, no palpitations, no syncope. PULMONARY: No shortness of breath, no cough, GASTROINTESTINAL: No diarrhea, no nausea, no vomiting, no abdominal pain. NEUROLOGICAL: No headaches, no weakness, PHYSICAL EXAMINATION: GENERAL: The patient is alert and oriented x3, not in any acute distress. Well developed, well nourished. HEENT: Pupils are round and equally reacting to light. EOMI. No scleral icterus. No conjunctival pallor. Normocephalic, atraumatic. No pharyngeal erythema. No thyromegaly. CARDIOVASCULAR: S1 and S2 present. No murmurs, rubs, or gallops. PULMONARY: Chest is clear to auscultation, no wheezing or crackles. ABDOMEN: Soft, nontender, nondistended, normoactive bowel sounds. No palpable organomegaly. MUSCULOSKELETAL: No joint swelling or deformity. EXTREMITIES: No cyanosis, clubbing, or pedal edema. NEUROLOGICAL: Gross neurological examination did not reveal any focal deficits. SKIN: No rashes. Assessment and plan Acute hypoxic respiratory failure Acute bilateral saddle PE with RV strain Right lower extremity DVT Hyponatremia History of COPD History of CHF History of IgG4 related lung disease with biopsy Diabetes mellitus osteoarthritis History of bronchial asthma Obesity with a BMI of 36.4 History of anxiety/depression GERD Monitor vital signs Monitor CBC Monitor CMP Continue telemetry monitoring Status post percutaneous clot thrombectomy with Inari device Started on Eliquis 10 mg twice daily for 7 days followed by 5 mg twice a day Doppler of the lower extremity also showed a right femoral DVT. 2D echo pending Pulmonology following Vascular surgery following Labs and medication were reviewed.. Continue same treatment. Continue with symptomatic treatment. Resume home medication. Monitor labs and vitals. DVT and GI prophylaxis. Further recommendations as per clinical course of the patient Dictation was produced using [employer] dictation software. please excuse any grammatical, word or spelling errors. Objective - Vital Signs Vital signs: Vital Signs Temp 97.7 F 05/11/24 08:00 Pulse 76 05/11/24 08:00 Resp 19 05/11/24 08:00 BP 126/71 05/11/24 08:00 Pulse Ox 94 L 05/11/24 08:00 FiO2 Intake & Output 05/10/24 05/11/24 05/11/24 18:59 06:59 18:59 Intake Total 20 196.183 80.872 Output Total 775 485 0 Balance -755 -288.817 80.872 Weight 81.647 kg 83 kg Intake: IV 20 60 10 Invasive Line 1 10 30 10 Invasive Line 2 10 30 Intake, IV Titration 136.183 70.872 Amount Heparin Sod,Pork in 0.45% 136.183 70.872 NaCl 25,000 unit In 0.45 % NaCl 1 250ml.bag @ 18 UNITS/KG/HR 14.696 mls/hr IV .Q17H1M [facility] Rx#: [id number] Output: Urine 775 485 0 Uretheral (Lynn) 500 Other: Voiding Method Indwelling Catheter Indwelling Catheter - Labs CBC & Chem 7: 05/11/24 05:47 05/11/24 05:47 Labs: Abnormal Lab Results - Last 24 Hours (Table) 05/10/24 05/10/24 05/10/24 Range/Units 14:18 14:18 14:18 WBC 16.5 H (3.8-10.6) k/uL RBC 5.71 H (3.80-5.40) m/uL Hct 46.7 H (34.0-46.0) % MCHC (31.0-37.0) g/dL RDW 19.1 H (11.5-15.5) % Neutrophils # 15.2 H (1.3-7.7) k/uL Lymphocytes # 0.8 L (1.0-4.8) k/uL Monocytes # (0-1.0) k/uL APTT (22.0-30.0) sec Sodium (137-145) mmol/L Potassium (3.5-5.1) mmol/L Chloride (98-107) mmol/L Glucose 125 H (74-99) mg/dL POC Glucose (mg/dL) (70-110) mg/dL AST 195 H (14-36) U/L ALT 221 H (4-34) U/L Alkaline Phosphatase 138 H (38-126) U/L Troponin I 0.718 H* (0.000-0.034) ng/mL 05/10/24 05/10/24 05/10/24 Range/Units 14:18 17:13 23:00 WBC (3.8-10.6) k/uL RBC (3.80-5.40) m/uL Hct (34.0-46.0) % MCHC (31.0-37.0) g/dL RDW (11.5-15.5) % Neutrophils # (1.3-7.7) k/uL Lymphocytes # (1.0-4.8) k/uL Monocytes # (0-1.0) k/uL APTT 151.1 H* (22.0-30.0) sec Sodium (137-145) mmol/L Potassium (3.5-5.1) mmol/L Chloride (98-107) mmol/L Glucose (74-99) mg/dL POC Glucose (mg/dL) 132 H 150 H (70-110) mg/dL AST (14-36) U/L ALT (4-34) U/L Alkaline Phosphatase (38-126) U/L Troponin I (0.000-0.034) ng/mL 05/10/24 05/11/24 05/11/24 Range/Units 23:06 05:47 05:47 WBC 22.5 H 23.8 H (3.8-10.6) k/uL RBC (3.80-5.40) m/uL Hct (34.0-46.0) % MCHC 30.7 L 30.5 L (31.0-37.0) g/dL RDW 19.1 H 19.2 H (11.5-15.5) % Neutrophils # 18.2 H (1.3-7.7) k/uL Lymphocytes # (1.0-4.8) k/uL Monocytes # 1.7 H (0-1.0) k/uL APTT >200.0 H* (22.0-30.0) sec Sodium (137-145) mmol/L Potassium (3.5-5.1) mmol/L Chloride (98-107) mmol/L Glucose (74-99) mg/dL POC Glucose (mg/dL) (70-110) mg/dL AST (14-36) U/L ALT (4-34) U/L Alkaline Phosphatase (38-126) U/L Troponin I (0.000-0.034) ng/mL 05/11/24 Range/Units 05:47 WBC (3.8-10.6) k/uL RBC (3.80-5.40) m/uL Hct (34.0-46.0) % MCHC (31.0-37.0) g/dL RDW (11.5-15.5) % Neutrophils # (1.3-7.7) k/uL Lymphocytes # (1.0-4.8) k/uL Monocytes # (0-1.0) k/uL APTT (22.0-30.0) sec Sodium 136 L (137-145) mmol/L Potassium 3.3 L (3.5-5.1) mmol/L Chloride 108 H (98-107) mmol/L Glucose 113 H (74-99) mg/dL POC Glucose (mg/dL) (70-110) mg/dL AST (14-36) U/L ALT (4-34) U/L Alkaline Phosphatase (38-126) U/L Troponin I (0.000-0.034) ng/mL
[2024-05-11] MEDS: POTASSIUM CHLORIDE 10 MEQ in WATER FOR INJECTION 1 100ML.BAG IVPB SCH (12:50)
--- NOTE | 2024-05-12 11:03 | P.PN ---
Subjective Progress Note Date: 05/12/24 Principal diagnosis: Bilateral saddle PE with right heart strain Patient is seen and examined today as a follow-up. She has status post percutaneous pulmonary thrombectomy. States her breathing has improved. She is not requiring any oxygen supplementation. Denies any bleeding or pain at the right groin access site. Denies any chest pain or shortness of breath. Patient has been transition to oral anticoagulation. Objective - Vital Signs Vital signs: Vital Signs Temp 98.4 F 05/12/24 04:03 Pulse 63 05/12/24 04:03 Resp 15 05/12/24 04:03 BP 106/64 05/12/24 04:03 Pulse Ox 96 05/12/24 04:03 FiO2 Intake & Output 05/11/24 05/12/24 05/12/24 18:59 06:59 18:59 Intake Total 330.872 20 Output Total 450 600 Balance -119.128 -580 Weight 85 kg Intake: IV 20 20 Invasive Line 1 20 Invasive Line 2 20 Intake, IV Titration 70.872 Amount Heparin Sod,Pork in 0.45% 70.872 NaCl 25,000 unit In 0.45 % NaCl 1 250ml.bag @ 18 UNITS/KG/HR 14.696 mls/hr IV .Q17H1M [facility] Rx#: [id number] Oral 240 Output: Urine 450 600 Other: Voiding Method External Catheter External Catheter - Exam General appearance: The patient is alert, oriented, appears in no acute distress. HET: Head is normocephalic and atraumatic. Pupils are equal and reactive. Neck: Supple. Heart: Regular. Lungs: Equal expansion, normal respiratory effort. Abdomen: Soft, nontender, nondistended. Extremities: Normal skin color and turgor. Right groin with suture intact. No surrounding ecchymosis or hematoma. Suture removed. Neurological: No focal deficits. Strength and sensation are grossly intact. - Labs CBC & Chem 7: 05/11/24 05:47 05/11/24 05:47 Labs: Abnormal Lab Results - Last 24 Hours (Table) 05/11/24 Range/Units 09:27 APTT 83.9 H (22.0-30.0) sec Assessment and Plan Assessment: 1. Bilateral saddle pulmonary embolism with right heart strain status post percutaneous pulmonary thrombectomy 2. Acute respiratory insufficiency, distress now resolved Plan: 1. Continue symptomatic and supportive care 2. Patient encourage ambulation 3. Continue anticoagulation as prescribed 4. Recommend outpatient follow-up in 2 to 4 weeks with vascular surgeon Thank you for this consultation, patient is cleared from vascular surgery for discharge. The impression and plan of care has been dictated as directed. I performed a history and examination of this patient, discussed the same with the dictator. I agree with the dictator's note ,documented as a scribe. Any additional findings or plans will be noted.
--- NOTE | 2024-05-12 13:05 | CA ---
Transthoracic Echo Report Name: Nury Willett Age: 74 Gender: F : 1950 Exam Date: 05/12/2024 09:31 Exam Location: [facility] Ht (in): 59 Wt (lb): 180 Ordering Physician: Finesse Duckworth MD Attending/Referring Phys: Core Winding Operator Kaye Carmona RDCS Procedure CPT: Indications: SHORTNESS OF BREATH Cardiac Hx: Technical Quality: Technically difficult study Contrast 1: Definity Total Dose (mL): 2 Contrast 2: Total Dose (mL): MEASUREMENTS (Male / Female) Normal Values 2D ECHO RV Internal Dim ED PLAX 3.6 cm LV Diastolic Volume MOD BP 36.5 cm??? 67 - 155 / 56 - 104 cm??? LV Systolic Volume MOD BP 11.3 cm??? 22 - 58 / 19 - 49 cm??? LV Ejection Fraction MOD BP 68.9 % >= 55 % LV Cardiac Index MOD BP 1052.3 cm???/min???m??? LV Diastolic Volume MOD 4C 41.5 cm??? LV Systolic Volume MOD 4C 12.3 cm??? LV Ejection Fraction MOD 4C 70.4 % LV Cardiac Index MOD 4C 1222.2 cm???/min???m??? LV Diastolic Length 4C 6.6 cm LV Systolic Length 4C 5.0 cm LV Diastolic Volume MOD 2C 30.1 cm??? LV Systolic Volume MOD 2C 9.8 cm??? LV Ejection Fraction MOD 2C 67.5 % LV Cardiac Index MOD 2C 850.7 cm???/min???m??? LV Diastolic Length 2C 6.1 cm LV Systolic Length 2C 4.7 cm DOPPLER AV Peak Velocity 171.6 cm/s AV Peak Gradient 11.8 mmHg MV Area PHT 3.2 cm??? Mitral E Point Velocity 81.7 cm/s Mitral A Point Velocity 114.1 cm/s Mitral E to A Ratio 0.7 MV Deceleration Time 239.2 ms TR Peak Velocity 270.0 cm/s TR Peak Gradient 29.2 mmHg Right Ventricular Systolic Press 33.7 mmHg FINDINGS Left Ventricle Left ventricular ejection fraction is estimated at 55-60 %. Left ventricular cavity size normal. Right Ventricle Mild right ventricular dilatation. Right ventricular systolic pressure within normal limits. Right Atrium Right atrium not well visualized. Left Atrium Normal left atrial size. No left atrial thrombus or mass present. Mitral Valve Mitral valve thickened. No mitral stenosis, regurgitation or prolapse. Aortic Valve Trileaflet aortic valve. Thickened aortic valve without stenosis. Tricuspid Valve Structurally normal tricuspid valve. Mild tricuspid regurgitation. Pulmonic Valve Structurally normal pulmonic valve. Mild pulmonic regurgitation. Pericardium No pericardial or pleural effusion. Aorta Normal size aortic root and proximal ascending aorta. CONCLUSIONS Left ventricular ejection fraction 55-60% RVSP 33 No mitral regurgitation Mild tricuspid regurgitation No pericardial effusion Previewed by: Dr. Sergei Lawson DO (Electronically Signed) Final Date: 12 May 2024 13:04
--- NOTE | 2024-05-12 16:33 | P.PN ---
Subjective Progress Note Date: 05/12/24 Principal diagnosis: Acute submassive bilateral pulmonary emboli This is a female patient who was brought in to our emergency from [facility] because of massive bilateral pulm embolism with RV strain and a saddle embolus. The patient is RV to LV ratio was quite elevated consistent with submassive pulmonary embolism. The patient is currently in the emergency department. The patient is currently on 10 L of oxygen high flow and she is experiencing shortness of breath. Symptoms were rather of an acute onsets. The patient will be taken for a clot thrombectomy using the Inari device. Following that, the patient will be coming to the intensive care unit. The white cell count is at 16.5 with a hemoglobin 14.9 and a platelet count of 281. She is currently on IV heparin. Her PTT is at 151. BUN is 13 with a creatinine of 0.88 and a sodium levels at 140. Troponin is positive at 0.7 and the proBNP level is 8000. Rest of the electrolytes are all within normal limits. 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 The patient has been maintained on prednisone at low-dose of 5 mg p.o. daily. She has had previous episodes of recurrent hemoptysis which has been essentially negative and this was attributed to her IgG4 related disease. She has chronic nonalcoholic liver disease and hepatic steatosis. 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 She suffers from chronic anxiety. No previous history of DVT or pulmonary embolism. No recent surgeries. On 05/11/2024 the patient is still on IV heparin. She is on room air oxygen. The patient underwent a clot thrombectomy using the Inari device and subsequently, there was significant improvement in the patient respiratory status. The patient was in the 100% RV to facemask and currently she is on room air oxygen. No specific complaints. No pleurisy. No hemoptysis. No chest pain. Hemodynamically stable. Doppler of the lower extremity also showed a right femoral DVT. Blood work from today shows a white cell count of 23, hemoglobin 12.1 and a platelet count of 274. BUN 17 with a creatinine of 0.6 and a sodium levels at 136 with a potassium level of 3.3. Calcium is 9.1. Patient seen today on 05/12/2024, patient is feeling better, breathing easier, patient is status post clot thrombectomy when she presented with submassive pulmonary emboli. She is now on room air, O2 sats at 97%, patient is hemodynamically stable. Remains on heparin with PTT of 83.9 her WBC count is 23.8 hemoglobin 12.1 electrolytes are normal renal profile is normal Objective - Vital Signs Vital signs: Vital Signs Temp 98.2 F 05/12/24 08:00 Pulse 83 05/12/24 14:00 Resp 16 05/12/24 14:00 BP 105/68 05/12/24 12:00 Pulse Ox 97 05/12/24 12:00 FiO2 Intake & Output 05/11/24 05/12/24 05/12/24 18:59 06:59 18:59 Intake Total 330.872 20 540 Output Total 450 600 Balance -119.128 -580 540 Weight 85 kg Intake: IV 20 20 Invasive Line 1 20 Invasive Line 2 20 Intake, IV Titration 70.872 Amount Heparin Sod,Pork in 0.45% 70.872 NaCl 25,000 unit In 0.45 % NaCl 1 250ml.bag @ 18 UNITS/KG/HR 14.696 mls/hr IV .[id number] [facility] Rx#: [id number] Oral 240 540 Output: Urine 450 600 Other: Voiding Method External Catheter External Catheter External Catheter - Exam GENERAL: Revealed 74-year-old female in no distress, on room air HEENT: Pupils are round and equally reacting to light. EOMI. No scleral icterus. No conjunctival pallor. Normocephalic, atraumatic. No pharyngeal erythema. No thyromegaly. CARDIOVASCULAR: S1 and S2 present. No murmurs, rubs, or gallops. PULMONARY: Chest is clear to auscultation, no wheezing or crackles. ABDOMEN: Soft, nontender, nondistended, normoactive bowel sounds. No palpable organomegaly. MUSCULOSKELETAL: No joint swelling or deformity. EXTREMITIES: No cyanosis, clubbing, or pedal edema. NEUROLOGICAL: Gross neurological examination did not reveal any focal deficits. SKIN: No rashes. - Labs CBC & Chem 7: 05/11/24 05:47 05/11/24 05:47 Assessment and Plan Assessment: Impression: Acute submassive bilateral pulmonary embolism with a saddle clot as evident on the CAT angiogram of the chest and the patient has increased dyspnea, RV strain pattern based on CAT scan criteria and abnormal troponins. The patient was hypoxic and she was in the 100% nonrebreather facemask, underwent clot thrombectomy using the Inari device and the patient is postop day #1. Significant improvement in respiratory status and the patient is currently on room air oxygen. Right femoral DVT Acute hypoxic respiratory failure, secondary to above IgG 4 related disease and the patient has been maintained on steroids on outpatient basis in combination with methotrexate it was started recently. Morbid obesity Diabetes mellitus History of bronchial asthma which is currently inactive and stable Chronic pain Osteoarthritis History of traumatic rib fractures related to a fall Chronic anxiety Recommendation: Continue Eliquis Consider discharge planning in the next 24 hours. Continue bronchodilators for underlying asthma Resume home meds Continue prednisone 5 mg daily for her underlying IgG4 disease Will continue to follow Time with Patient: Less than 30
[2024-05-13 07:20] LABS: Anisocytosis Slight; Basophils # (A) 0.1 k/uL (0-0.2); Basophils % (A) 0 %; Eosinophils # (A) 0.3 k/uL (0-0.7); Eosinophils % (A) 2 %; HCT 36.3 % (34.0-46.0); HGB 11.4 gm/dL (11.4-16.0); Hypochromasia Marked; Lymphocytes # (A) 2.9 k/uL (1.0-4.8); Lymphocytes % (A) 20 %; MCH 26.4 pg (25.0-35.0); MCHC 31.4 g/dL (31.0-37.0); MCV 84.3 fL (80.0-100.0); Mean Platelet Volume 7.9; Monocytes # (A) 1.1 k/uL (0-1.0); Monocytes % (A) 7 %; Neutrophils # (A) 10.2 k/uL (1.3-7.7); Neutrophils % (A) 69 %; Platelet Count 277 k/uL (150-450); WBC 14.7 k/uL (3.8-10.6)
[2024-05-13 07:34] LABS: African American GFR (CKD) >90 (>60 ml/min/1.73 sqM); Anion Gap 1 mmol/L; Blood Urea Nitrogen 17 mg/dL (7-17); Calcium 8.4 mg/dL (8.4-10.2); Carbon Dioxide 30 mmol/L (22-30); Chloride 105 mmol/L (98-107); Glucose 85 mg/dL (74-99); Non-African American GFR(CKD) 80 (>60 ml/min/1.73 sqM); Potassium 3.7 mmol/L (3.5-5.1); Sodium 136 mmol/L (137-145)
[2024-05-13] MEDS: POTASSIUM CHLORIDE ER 20 MEQ TAB.ER PO STA (12:52)
--- NOTE | 2024-05-13 15:18 | P.PN ---
Subjective Progress Note Date: 05/13/24 Principal diagnosis: Acute submassive bilateral pulmonary emboli This is a female patient who was brought in to our emergency from [facility] because of massive bilateral pulm embolism with RV strain and a saddle embolus. The patient is RV to LV ratio was quite elevated consistent with submassive pulmonary embolism. The patient is currently in the emergency department. The patient is currently on 10 L of oxygen high flow and she is experiencing shortness of breath. Symptoms were rather of an acute onsets. The patient will be taken for a clot thrombectomy using the Inari device. Following that, the patient will be coming to the intensive care unit. The white cell count is at 16.5 with a hemoglobin 14.9 and a platelet count of 281. She is currently on IV heparin. Her PTT is at 151. BUN is 13 with a creatinine of 0.88 and a sodium levels at 140. Troponin is positive at 0.7 and the proBNP level is 8000. Rest of the electrolytes are all within normal limits. 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 The patient has been maintained on prednisone at low-dose of 5 mg p.o. daily. She has had previous episodes of recurrent hemoptysis which has been essentially negative and this was attributed to her IgG4 related disease. She has chronic nonalcoholic liver disease and hepatic steatosis. 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 She suffers from chronic anxiety. No previous history of DVT or pulmonary embolism. No recent surgeries. On 05/11/2024 the patient is still on IV heparin. She is on room air oxygen. The patient underwent a clot thrombectomy using the Inari device and subsequently, there was significant improvement in the patient respiratory status. The patient was in the 100% RV to facemask and currently she is on room air oxygen. No specific complaints. No pleurisy. No hemoptysis. No chest pain. Hemodynamically stable. Doppler of the lower extremity also showed a right femoral DVT. Blood work from today shows a white cell count of 23, hemoglobin 12.1 and a platelet count of 274. BUN 17 with a creatinine of 0.6 and a sodium levels at 136 with a potassium level of 3.3. Calcium is 9.1. Patient seen today on 05/12/2024, patient is feeling better, breathing easier, patient is status post clot thrombectomy when she presented with submassive pulmonary emboli. She is now on room air, O2 sats at 97%, patient is hemodynamically stable. Remains on heparin with PTT of 83.9 her WBC count is 23.8 hemoglobin 12.1 electrolytes are normal renal profile is normal Patient was seen here today on 05/13/2024, patient seems to be doing well, does not seem to be in any distress, initial presentation was a presentation of submassive pulmonary embolism. Patient is now off heparin, she is on Eliquis, she seems to doing fairly well, minimal shortness of breath minimal cough and minimal wheezing on physical examination. Labs today showed WBC is 14.7 hemoglobin 11.4 basic metabolic profile is normal Renal profile is normal Objective - Vital Signs Vital signs: Vital Signs Temp 98.2 F 05/13/24 08:35 Pulse 78 05/13/24 08:35 Resp 17 05/13/24 08:35 BP 123/73 05/13/24 08:35 Pulse Ox 97 05/13/24 08:35 FiO2 Intake & Output 05/12/24 05/13/24 05/13/24 18:59 06:59 18:59 Intake Total 780 20 380 Output Total 800 600 Balance -20 -580 380 Weight 71.5 kg Intake: IV 20 20 Invasive Line 2 20 20 Oral 780 360 Output: Urine 800 600 Other: Voiding Method External Catheter External Catheter # Voids 4 # Bowel Movements 0 0 - Exam GENERAL: Revealed 74-year-old female in no distress, on room air HEENT: Pupils are round and equally reacting to light. EOMI. No scleral icterus. No conjunctival pallor. Normocephalic, atraumatic. No pharyngeal erythema. No thyromegaly. CARDIOVASCULAR: S1 and S2 present. No murmurs, rubs, or gallops. PULMONARY: Chest is clear to auscultation, minimal wheezing on forced expiratory maneuver only ABDOMEN: Soft, nontender, nondistended, normoactive bowel sounds. No palpable organomegaly. MUSCULOSKELETAL: No joint swelling or deformity. EXTREMITIES: No cyanosis, clubbing, or pedal edema. NEUROLOGICAL: Gross neurological examination did not reveal any focal deficits. SKIN: No rashes. - Labs CBC & Chem 7: 05/13/24 05:59 05/13/24 05:59 Labs: Abnormal Lab Results - Last 24 Hours (Table) 12/03/24 12/03/24 Range/Units 05:59 05:59 WBC 14.7 H (3.8-10.6) k/uL RDW 19.0 H (11.5-15.5) % Neutrophils # 10.2 H (1.3-7.7) k/uL Monocytes # 1.1 H (0-1.0) k/uL Sodium 136 L (137-145) mmol/L Assessment and Plan Assessment: Impression: Acute submassive bilateral pulmonary embolism with a saddle clot as evident on the CAT angiogram of the chest and the patient has increased dyspnea, RV strain pattern based on CAT scan criteria and abnormal troponins. The patient was hypoxic and she was in the 100% nonrebreather facemask, underwent clot thrombectomy using the Inari device and the patient is postop day #1. Significant improvement in respiratory status and the patient is currently on room air oxygen. Right femoral DVT Acute hypoxic respiratory failure, secondary to above IgG 4 related disease and the patient has been maintained on steroids on outpatient basis in combination with methotrexate it was started recently. Morbid obesity Diabetes mellitus History of bronchial asthma which is currently inactive and stable Chronic pain Osteoarthritis History of traumatic rib fractures related to a fall Chronic anxiety Recommendation: Continue Eliquis Consider discharge planning i Continue bronchodilators for her underlying COPD/asthma Continue prednisone 5 mg daily for her underlying IgG4 disease Will continue to follow Time with Patient: Less than 30
[2024-05-13 22:46] VITALS: RESP 18
[2024-05-14 07:32] LABS: Anisocytosis Slight; Basophils # (A) 0.1 k/uL (0-0.2); Basophils % (A) 0 %; Eosinophils # (A) 0.3 k/uL (0-0.7); Eosinophils % (A) 2 %; HGB 11.6 gm/dL (11.4-16.0); Hypochromasia Moderate; Lymphocytes # (A) 2.7 k/uL (1.0-4.8); Lymphocytes % (A) 16 %; MCH 26.3 pg (25.0-35.0); MCHC 31.3 g/dL (31.0-37.0); Mean Platelet Volume 8.2; Monocytes # (A) 1.2 k/uL (0-1.0); Monocytes % (A) 8 %; Neutrophils # (A) 12.1 k/uL (1.3-7.7); Neutrophils % (A) 73 %; Platelet Count 320 k/uL (150-450); RDW 19.2 % (11.5-15.5); WBC 16.7 k/uL (3.8-10.6)
[2024-05-14 07:53] LABS: African American GFR (CKD) >90 (>60 ml/min/1.73 sqM); Anion Gap 4 mmol/L; Blood Urea Nitrogen 16 mg/dL (7-17); Calcium 8.9 mg/dL (8.4-10.2); Carbon Dioxide 31 mmol/L (22-30); Chloride 99 mmol/L (98-107); Glucose 87 mg/dL (74-99); Non-African American GFR(CKD) 78 (>60 ml/min/1.73 sqM); Potassium 3.7 mmol/L (3.5-5.1); Sodium 134 mmol/L (137-145)
--- NOTE | 2024-05-14 10:51 | P.PN ---
Subjective Progress Note Date: 05/12/24 patient is a 74-year-old lady with past medical history significant for COPD, CHF who presented to the ER as a transfer for [facility]. Patient stated she was all right yesterday when he started noticing shortness of breath. Shortness of breath was present at rest as on exertion. Patient denied any chest pain. There was no complaint of orthopnea or PND. Patient noticed swelling of lower extremities. Patient went to [facility] where they did CT angio chest that showed saddle PE with right heart strain. Patient was started on pharmacy dose heparin and was transferred to [facility] Initial lab work done in the ER showed WB 16.5, hemoglobin 14.9, platelet count 21, sodium 140, potassium 3.6, BUN 13, creatinine 0.88, glucose 125 AST 195, ALT 221 troponin 0.718 Patient admitted to internal medicine service 05/11. Patient seen and examined. Currently on room air. Blood work done showed WBC 23.8, hemoglobin 12.1, sodium 130, potassium 3.3, BUN 17, creatinine 0.66. Doppler of the lower extremity also showed a right femoral DVT. 05/12/2024 Admitted to hospital for acute submassive PE. Patient is status post clot thrombectomy. Patient is awake alert and oriented. Currently on room air. Breathing status is better. Was on heparin drip. Changed to Eliquis. Denied complaints of chest pain. No cough or sputum production. Patient has been afebrile. Lab oratory data showed WBC was 23.8 hemoglobin 12.1 and platelets 274 sodium 136 potassium 3.3 chloride 108 bicarb is 23 BUN 17 and creatinine 0.66 and blood sugar is 113. Calcium 9.1. Pulmonary and vascular surgery is on board. REVIEW OF SYSTEMS: CONSTITUTIONAL: No fever, no malaise,. CARDIOVASCULAR: No chest pain, no palpitations, no syncope. PULMONARY: No shortness of breath, no cough, GASTROINTESTINAL: No diarrhea, no nausea, no vomiting, no abdominal pain. NEUROLOGICAL: No headaches, no weakness, PHYSICAL EXAMINATION: GENERAL: The patient is alert and oriented x3, not in any acute distress. Well developed, well nourished. HEENT: Pupils are round and equally reacting to light. EOMI. No scleral icterus. No conjunctival pallor. Normocephalic, atraumatic. No pharyngeal erythema. No thyromegaly. CARDIOVASCULAR: S1 and S2 present. No murmurs, rubs, or gallops. PULMONARY: Chest is clear to auscultation, no wheezing or crackles. ABDOMEN: Soft, nontender, nondistended, normoactive bowel sounds. No palpable organomegaly. MUSCULOSKELETAL: No joint swelling or deformity. EXTREMITIES: No cyanosis, clubbing, or pedal edema. NEUROLOGICAL: Gross neurological examination did not reveal any focal deficits. SKIN: No rashes. Assessment and plan Acute hypoxic respiratory failure. Currently titrated down to room air. Acute bilateral saddle PE with RV strain Right lower extremity DVT Hyponatremia History of COPD History of CHF History of IgG4 related lung disease with biopsy Diabetes mellitus osteoarthritis History of bronchial asthma Obesity with a BMI of 36.4 History of anxiety/depression GERD Monitor vital signs Monitor CBC Monitor CMP Continue telemetry monitoring Status post percutaneous clot thrombectomy with Inari device Started on Eliquis 10 mg twice daily for 7 days followed by 5 mg twice a day Doppler of the lower extremity also showed a right femoral DVT. 2D echo pending Pulmonology following Vascular surgery following Labs and medication were reviewed.. Continue same treatment. Continue with symptomatic treatment. Resume home medication. Monitor labs and vitals. DVT and GI prophylaxis. Further recommendations as per clinical course of the patient Dictation was produced using [employer] dictation software. please excuse any grammatical, word or spelling errors. Objective - Vital Signs Vital signs: Vital Signs Temp 98.8 F 05/12/24 19:45 Pulse 82 05/12/24 19:45 Resp 17 05/12/24 19:45 BP 114/71 05/12/24 19:45 Pulse Ox 95 05/12/24 19:45 FiO2 Intake & Output 05/12/24 05/12/24 05/13/24 06:59 18:59 06:59 Intake Total 20 780 10 Output Total 600 800 Balance -580 -20 10 Weight 85 kg Intake: IV 20 10 Invasive Line 2 20 10 Oral 780 Output: Urine 600 800 Other: Voiding Method External Catheter External Catheter External Catheter # Bowel Movements 0 - Labs CBC & Chem 7: 05/14/24 06:14 05/14/24 06:14
--- NOTE | 2024-05-14 10:52 | P.PN ---
Subjective Progress Note Date: 05/13/24 patient is a 74-year-old lady with past medical history significant for COPD, CHF who presented to the ER as a transfer for [facility]. Patient stated she was all right yesterday when he started noticing shortness of breath. Shortness of breath was present at rest as on exertion. Patient denied any chest pain. There was no complaint of orthopnea or PND. Patient noticed swelling of lower extremities. Patient went to [facility] where they did CT angio chest that showed saddle PE with right heart strain. Patient was started on pharmacy dose heparin and was transferred to [facility] Initial lab work done in the ER showed WB 16.5, hemoglobin 14.9, platelet count 21, sodium 140, potassium 3.6, BUN 13, creatinine 0.88, glucose 125 AST 195, ALT 221 troponin 0.718 Patient admitted to internal medicine service 05/11. Patient seen and examined. Currently on room air. Blood work done showed WBC 23.8, hemoglobin 12.1, sodium 130, potassium 3.3, BUN 17, creatinine 0.66. Doppler of the lower extremity also showed a right femoral DVT. 05/12/2024 Admitted to hospital for acute submassive PE. Patient is status post clot thrombectomy. Patient is awake alert and oriented. Currently on room air. Breathing status is better. Was on heparin drip. Changed to Eliquis. Denied complaints of chest pain. No cough or sputum production. Patient has been afebrile. Lab oratory data showed WBC was 23.8 hemoglobin 12.1 and platelets 274 sodium 136 potassium 3.3 chloride 108 bicarb is 23 BUN 17 and creatinine 0.66 and blood sugar is 113. Calcium 9.1. Pulmonary and vascular surgery is on board. 05/13/2024 Patient is currently sitting in the chair. Awake alert and oriented x 3. No complaints of chest pain or shortness of breath. Patient is on oral anticoagulation with Eliquis. No complaints of fever or chills. No cough or sputum production. Laboratory showed WBC trending down to 14.7 hemoglobin 11.4 and platelets 277 sodium 136 potassium 3.7 chloride 105 bicarb is 13 BUN 17 and creatinine 0.74 and blood sugar is 85. Calcium 8.4. REVIEW OF SYSTEMS: CONSTITUTIONAL: No fever, no malaise,. CARDIOVASCULAR: No chest pain, no palpitations, no syncope. PULMONARY: No shortness of breath, no cough, GASTROINTESTINAL: No diarrhea, no nausea, no vomiting, no abdominal pain. NEUROLOGICAL: No headaches, no weakness, PHYSICAL EXAMINATION: GENERAL: The patient is alert and oriented x3, not in any acute distress. Well developed, well nourished. HEENT: Pupils are round and equally reacting to light. EOMI. No scleral icterus. No conjunctival pallor. Normocephalic, atraumatic. No pharyngeal erythema. No thyromegaly. CARDIOVASCULAR: S1 and S2 present. No murmurs, rubs, or gallops. PULMONARY: Chest is clear to auscultation, no wheezing or crackles. ABDOMEN: Soft, nontender, nondistended, normoactive bowel sounds. No palpable organomegaly. MUSCULOSKELETAL: No joint swelling or deformity. EXTREMITIES: No cyanosis, clubbing, or pedal edema. NEUROLOGICAL: Gross neurological examination did not reveal any focal deficits. SKIN: No rashes. Assessment and plan Acute hypoxic respiratory failure. Currently titrated down to room air. Acute bilateral saddle PE with RV strain Right lower extremity DVT Hyponatremia improved. History of COPD History of CHF History of IgG4 related lung disease with biopsy Diabetes mellitus Osteoarthritis History of bronchial asthma Obesity with a BMI of 36.4 History of anxiety/depression GERD Monitor vital signs Monitor CBC Monitor CMP Continue telemetry monitoring Status post percutaneous clot thrombectomy with Inari device Started on Eliquis 10 mg twice daily for 7 days followed by 5 mg twice a day Doppler of the lower extremity also showed a right femoral DVT. 2D echo pending Pulmonology following Vascular surgery following Labs and medication were reviewed.. Continue with symptomatic treatment. Resume home medication. Monitor labs and vitals. DVT and GI prophylaxis.. Dictation was produced using [employer] dictation software. please excuse any grammatical, word or spelling errors. Objective - Vital Signs Vital signs: Vital Signs Temp 98.2 F 05/13/24 16:15 Pulse 71 05/13/24 16:15 Resp 17 05/13/24 16:15 BP 127/65 05/13/24 16:15 Pulse Ox 97 05/13/24 16:15 FiO2 Intake & Output 05/13/24 05/13/24 05/14/24 06:59 18:59 06:59 Intake Total 20 380 120 Output Total 600 Balance -580 380 120 Weight 71.5 kg Intake: IV 20 20 Invasive Line 2 20 20 Oral 360 120 Output: Urine 600 Other: Voiding Method External Catheter Toilet # Voids 1 # Bowel Movements 0 - Labs CBC & Chem 7: 05/14/24 06:14 05/14/24 06:14 Labs: Abnormal Lab Results - Last 24 Hours (Table) 05/13/24 05/13/24 Range/Units 05:59 05:59 WBC 14.7 H (3.8-10.6) k/uL RDW 19.0 H (11.5-15.5) % Neutrophils # 10.2 H (1.3-7.7) k/uL Monocytes # 1.1 H (0-1.0) k/uL Sodium 136 L (137-145) mmol/L
[2024-05-14 11:16] VITALS: TEMP 98.1
[2024-05-14 12:32] VITALS: BP 124/70; PULSE 80
--- NOTE | 2024-05-14 13:24 | P.PN ---
Subjective Progress Note Date: 05/14/24 Principal diagnosis: Acute submassive bilateral pulmonary emboli This is a female patient who was brought in to our emergency from [facility] because of massive bilateral pulm embolism with RV strain and a saddle embolus. The patient is RV to LV ratio was quite elevated consistent with submassive pulmonary embolism. The patient is currently in the emergency department. The patient is currently on 10 L of oxygen high flow and she is experiencing shortness of breath. Symptoms were rather of an acute onsets. The patient will be taken for a clot thrombectomy using the Inari device. Following that, the patient will be coming to the intensive care unit. The white cell count is at 16.5 with a hemoglobin 14.9 and a platelet count of 281. She is currently on IV heparin. Her PTT is at 151. BUN is 13 with a creatinine of 0.88 and a sodium levels at 140. Troponin is positive at 0.7 and the proBNP level is 8000. Rest of the electrolytes are all within normal limits. 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 The patient has been maintained on prednisone at low-dose of 5 mg p.o. daily. She has had previous episodes of recurrent hemoptysis which has been essentially negative and this was attributed to her IgG4 related disease. She has chronic nonalcoholic liver disease and hepatic steatosis. 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 She suffers from chronic anxiety. No previous history of DVT or pulmonary embolism. No recent surgeries. On 05/11/2024 the patient is still on IV heparin. She is on room air oxygen. The patient underwent a clot thrombectomy using the Inari device and subsequently, there was significant improvement in the patient respiratory status. The patient was in the 100% RV to facemask and currently she is on room air oxygen. No specific complaints. No pleurisy. No hemoptysis. No chest pain. Hemodynamically stable. Doppler of the lower extremity also showed a right femoral DVT. Blood work from today shows a white cell count of 23, hemoglobin 12.1 and a platelet count of 274. BUN 17 with a creatinine of 0.6 and a sodium levels at 136 with a potassium level of 3.3. Calcium is 9.1. Patient seen today on 05/12/2024, patient is feeling better, breathing easier, patient is status post clot thrombectomy when she presented with submassive pulmonary emboli. She is now on room air, O2 sats at 97%, patient is hemodynamically stable. Remains on heparin with PTT of 83.9 her WBC count is 23.8 hemoglobin 12.1 electrolytes are normal renal profile is normal Patient was seen here today on 05/13/2024, patient seems to be doing well, does not seem to be in any distress, initial presentation was a presentation of submassive pulmonary embolism. Patient is now off heparin, she is on Eliquis, she seems to doing fairly well, minimal shortness of breath minimal cough and minimal wheezing on physical examination. Labs today showed WBC is 14.7 hemoglobin 11.4 basic metabolic profile is normal Renal profile is normal Reevaluate today on 05/14/2024, patient is doing well she is on room air, not in any distress, she does have intermittent nonproductive cough, no fever no chills no hemoptysis, patient is tolerating Eliquis well. Patient is also on bronchodilators, and she is on GI and DVT prophylaxis. No major issues over the last 24 hours, I am clearing the patient for discharge home possibly today. Objective - Vital Signs Vital signs: Vital Signs Temp 98.1 F 05/14/24 08:10 Pulse 80 05/14/24 12:00 Resp 18 05/14/24 12:00 BP 124/70 05/14/24 12:00 Pulse Ox 96 05/14/24 12:00 FiO2 Intake & Output 05/13/24 05/14/24 05/14/24 18:59 06:59 18:59 Intake Total 380 140 360 Output Total 200 1350 Balance 380 -60 -990 Weight 84.8 kg Intake: IV 20 20 Invasive Line 2 20 20 Oral 360 120 360 Output: Urine 200 1350 Other: Voiding Method Toilet External Catheter External Catheter # Voids 1 # Bowel Movements 0 - Exam GENERAL: Revealed 74-year-old female in no distress, on room air HEENT: Pupils are round and equally reacting to light. EOMI. No scleral icterus. No conjunctival pallor. Normocephalic, atraumatic. No pharyngeal erythema. No thyromegaly. CARDIOVASCULAR: S1 and S2 present. No murmurs, rubs, or gallops. PULMONARY: Chest is clear to auscultation, minimal wheezing on forced expiratory maneuver only ABDOMEN: Soft, nontender, nondistended, normoactive bowel sounds. No palpable organomegaly. MUSCULOSKELETAL: No joint swelling or deformity. EXTREMITIES: No cyanosis, clubbing, or pedal edema. NEUROLOGICAL: Gross neurological examination did not reveal any focal deficits. SKIN: No rashes. - Labs CBC & Chem 7: 05/14/24 06:14 05/14/24 06:14 Labs: Abnormal Lab Results - Last 24 Hours (Table) 05/14/24 05/14/24 Range/Units 06:14 06:14 WBC 16.7 H (3.8-10.6) k/uL RDW 19.2 H (11.5-15.5) % Neutrophils # 12.1 H (1.3-7.7) k/uL Monocytes # 1.2 H (0-1.0) k/uL Sodium 134 L (137-145) mmol/L Carbon Dioxide 31 H (22-30) mmol/L Assessment and Plan Assessment: Impression: Acute submassive bilateral pulmonary embolism with a saddle clot as evident on the CAT angiogram of the chest and the patient has increased dyspnea, RV strain pattern based on CAT scan criteria and abnormal troponins. The patient was hypoxic and she was in the 100% nonrebreather facemask, underwent clot thrombectomy using the Inari device and the patient is postop day #1. Significant improvement in respiratory status and the patient is currently on room air oxygen. Right femoral DVT Acute hypoxic respiratory failure, secondary to above IgG 4 related disease and the patient has been maintained on steroids on outpatient basis in combination with methotrexate it was started recently. Morbid obesity Diabetes mellitus History of bronchial asthma which is currently inactive and stable Chronic pain Osteoarthritis History of traumatic rib fractures related to a fall Chronic anxiety Recommendation: Continue Eliquis Cleared for discharge home Continue bronchodilators for her underlying COPD/asthma Continue prednisone 5 mg daily for her underlying IgG4 disease Will continue to follow Time with Patient: Less than 30
== END 2024-05-14 14:47 | disposition home health service (06) | DRG 163 ==
LOC: EC 13:54 → 2SICU 14:24 → 3SCARD 05-11 14:05
PROVIDERS: ADMIT Internal Medicine; ATTEND Internal Medicine
PROC: B31S1ZZ Fluoroscopy of Right Pulmonary Artery using Low Osmolar Contrast (ICD-10-PCS; 2024-05-10)
PROC: 02CQ3ZZ Extirpation of Matter from Right Pulmonary Artery, Percutaneous Approach (ICD-10-PCS; principal; 2024-05-10 15:26)
PROC: 02CR3ZZ Extirpation of Matter from Left Pulmonary Artery, Percutaneous Approach (ICD-10-PCS; 2024-05-10 15:26)
PROC: B31T1ZZ Fluoroscopy of Left Pulmonary Artery using Low Osmolar Contrast (ICD-10-PCS; 2024-05-10 15:26)
PROC: B31U1ZZ Fluoroscopy of Pulmonary Trunk using Low Osmolar Contrast (ICD-10-PCS; 2024-05-10 15:26)
DX: I26.92 Saddle embolus of pulmonary artery without acute cor pulmonale (principal); J96.01 Acute respiratory failure with hypoxia; I82.411 Acute embolism and thrombosis of right femoral vein; E87.1 Hypo-osmolality and hyponatremia; D89.84 IgG4-related disease; E66.01 Morbid (severe) obesity due to excess calories; J44.89 Other specified chronic obstructive pulmonary disease; I50.9 Heart failure, unspecified; E11.9 Type 2 diabetes mellitus without complications; K76.0 Fatty (change of) liver, not elsewhere classified; G58.8 Other specified mononeuropathies; F41.9 Anxiety disorder, unspecified; F32.A Depression, unspecified; K21.9 Gastro-esophageal reflux disease without esophagitis; M19.90 Unspecified osteoarthritis, unspecified site; Z68.36 Body mass index [BMI] 36.0-36.9, adult; Z79.82 Long term (current) use of aspirin; Z86.718 Personal history of other venous thrombosis and embolism; Z79.52 Long term (current) use of systemic steroids; Z79.84 Long term (current) use of oral hypoglycemic drugs; Z79.899 Other long term (current) drug therapy; Z88.5 Allergy status to narcotic agent; Z88.8 Allergy status to other drugs, medicaments and biological substances; Z82.49 Family history of ischemic heart disease and other diseases of the circulatory system
CPT/HCPCS: 36015; 36415; 37184; 37185; 75743; 80048; 80053; 83605; 83880; 84484; 85025; 85027; 85610; 85730; 93306; 93970

== ENCOUNTER 2024-08-13 09:01 | Day surgery (SDC) | payer MEDICARE, OTHER ==
[~2024-08-13 09:01] MED LIST: LIDOCAINE 1% (10MG/ML) FOR IV START INTRADERMA PRN
[2024-08-13] MEDS: LACTATED RINGERS 1,000 ML IV SCH (10:14)
[2024-08-13] MEDS: IV FLUID CONTINUATION 1,000 ML IV ONE (10:14)
[2024-08-13 10:16] LABS: Glucose,Whole Blood 86 mg/dL (70-110)
[2024-08-13] MEDS ORDERED: LIDOCAINE 1% INJ 10MG/ML (20 ML MDV) ONE (10:16)
[2024-08-13] MEDS ORDERED: PROPOFOL 10 MG/ML 20 ML VIAL IV ONE (10:16)
[2024-08-13 10:17] VITALS: TEMP 97
[2024-08-13] MEDS: LACTATED RINGERS 1,000 ML IV ONE ×2 (10:17→10:37)
--- NOTE | 2024-08-13 10:38 | P.PCN ---
Date of Procedure: 08/13/24 Procedure(s) Performed: BRIEF HISTORY: Patient is a 74-year-old, pleasant, scheduled for an upper endoscopy as a part of evaluation of dysphagia to solids for the last 3 months duration.. PROCEDURE PERFORMED: Esophagogastroduodenoscopy biopsy and dilation. PREOPERATIVE DIAGNOSIS: Intermittent dysphagia to solids of 3 months duration. IV sedation per anesthesia. PROCEDURE: After informed consent was obtained, the patient was brought into the endoscopy unit. IV sedation was administered by Anesthesia under continuous monitoring. Initially the Olympus GIF-140 video endoscope was inserted into the mouth. Esophagus intubated without any difficulty. It was gradually advanced into the stomach and duodenum and carefully examined. The bulb and the second part of the duodenum appeared normal. The scope at this time was withdrawn to the stomach, adequately insufflated with air, and upon careful examination, mucosa of the antrum, body, cardia and the fundus appeared normal. Gastric polyps noted in the gastric body which were biopsied. The scope was then withdrawn into the esophagus. Mild hiatal hernia noted. The GE junction was located at 39 cm from the incisors. There was a distal esophageal Schatzki's ring that was dilated using 15 to 18 mm TTS balloon as described above. The esophagus appeared normal. There were no erosions or ulcerations seen biopsies were done from the distal esophagus and the patient tolerated the procedure well. IMPRESSION: 1. Distal esophageal Schatzki's ring status post balloon dilation using 15 to 18 mm TTS balloon. 2. Multiple small gastric polyps. 3. Small hiatal hernia RECOMMENDATIONS: The findings of this examination were discussed with the patient as well as her family. She will be on clear liquids for 2 hours. Resume Xarelto today. Continue current medications.
[2024-08-13 10:43] VITALS: RESP 16
[2024-08-13 10:57] VITALS: BP 124/81; PULSE 70
== END 2024-08-13 11:33 | disposition home or self-care (01) ==
LOC: ORWHC2ENDO 09:01
PROVIDERS: ATTEND Internal Medicine Gastroenterology
DX: K29.50 Unspecified chronic gastritis without bleeding (principal); K31.7 Polyp of stomach and duodenum; K44.9 Diaphragmatic hernia without obstruction or gangrene; K22.2 Esophageal obstruction; K52.9 Noninfective gastroenteritis and colitis, unspecified; I11.0 Hypertensive heart disease with heart failure; I50.9 Heart failure, unspecified; J44.89 Other specified chronic obstructive pulmonary disease; J84.9 Interstitial pulmonary disease, unspecified; I26.99 Other pulmonary embolism without acute cor pulmonale; F32.A Depression, unspecified; F41.9 Anxiety disorder, unspecified; M06.9 Rheumatoid arthritis, unspecified; E11.9 Type 2 diabetes mellitus without complications; Z88.6 Allergy status to analgesic agent; Z88.8 Allergy status to other drugs, medicaments and biological substances; Z91.018 Allergy to other foods; Z79.01 Long term (current) use of anticoagulants; Z79.82 Long term (current) use of aspirin; Z79.84 Long term (current) use of oral hypoglycemic drugs; Z79.899 Other long term (current) drug therapy
CPT/HCPCS: 88305; 43239; 43249; J2003; J2704; C1726